=== PATIENT | male | born 1945 | race Caucasian/White ===

== ENCOUNTER 2018-01-23 06:52 | Day surgery (SDC) | payer MEDICARE, OTHER ==
[2018-01-22 12:07] VITALS: BMI 32.1
[2018-01-23] MEDS ORDERED: Lidocaine 1% (PF) 30 ML VIAL ONE (10:28)
[2018-01-23] MEDS ORDERED: Verapamil 5 MG/2 ML VIAL ONE (10:59)
[2018-01-23] MEDS ORDERED: Heparin 10,000 UNITS/1 ML VIAL ONE (10:59)
[2018-01-23] MEDS ORDERED: Nitroglycerin 100MG/250ML BOT 250 ML ONE (10:59)
[2018-01-23] MEDS ORDERED: Fentanyl 100 MCG/2 ML VIAL ONE (11:03)
[2018-01-23] MEDS ORDERED: Midazolam HCl 2 mg/2 ml Vial ONE (11:03)
[2018-01-23] MEDS ORDERED: Iopamidol 370 76% 50 ML VIAL FS ONE (15:11)
[2018-01-23] MEDS ORDERED: Iopamidol 370 76% 100 ML VIAL ONE (15:11)
--- NOTE | 2018-01-25 08:26 | EKG ---
Test Reason : PREOP Blood Pressure : / mmHG Vent. Rate : 052 BPM Atrial Rate : 052 BPM P-R Int : 228 ms QRS Dur : 118 ms QT Int : 480 ms P-R-T Axes : 055 004 044 degrees QTc Int : 446 ms Sinus bradycardia with 1st degree A-V block Non-specific intra-ventricular conduction delay Borderline ECG No previous ECGs available Confirmed by QUINTON GALVEZ ([id number]) on 01/25/2018 8:26:24 AM Referred By: AMERICA Confirmed By:QUINTON GALVEZ
== END 2018-01-23 15:00 | disposition home or self-care (01) ==
LOC: CCL 06:52
PROVIDERS: ATTEND Internal Medicine Cardiovascular Disease
PROC: 4A023N7 Measurement of Cardiac Sampling and Pressure, Left Heart, Percutaneous Approach (ICD-10-PCS; principal; 2018-01-23)
PROC: B2111ZZ Fluoroscopy of Multiple Coronary Arteries using Low Osmolar Contrast (ICD-10-PCS; 2018-01-23)
DX: I25.10 Atherosclerotic heart disease of native coronary artery without angina pectoris (principal); E11.9 Type 2 diabetes mellitus without complications; I10 Essential (primary) hypertension; E78.00 Pure hypercholesterolemia, unspecified; K21.9 Gastro-esophageal reflux disease without esophagitis; Z87.891 Personal history of nicotine dependence; Z79.82 Long term (current) use of aspirin; Z79.84 Long term (current) use of oral hypoglycemic drugs; Z79.899 Other long term (current) drug therapy; Z88.0 Allergy status to penicillin; Z91.041 Radiographic dye allergy status
CPT/HCPCS: 93005; 93458; C1769; 93010; 99152; J1644; J2001; J2250; J3010

== ENCOUNTER 2018-03-24 13:15 | Inpatient (IN) | payer MEDICARE, OTHER ==
[2018-04-24 12:55] VITALS: BMI 32.1
--- NOTE | 2018-05-01 12:34 | HP ---
HISTORY OF PRESENT ILLNESS: The patient is a 72-year-old male with a long history of progressive degenerative arthritis of the left knee, unresponsive to conservative treatment including restriction of activities, anti-inflammatory medications, and previous cortisone and Synvisc injections. The pain is now interfering with day-to-day activities including walking, getting dressed, and sleeping. It has become progressively worse over the past year. PAST HISTORY: The patient has had stents placed in his left leg for peripheral vascular disease by Dr. Goff approximately 2 years ago with good results without further problems, and Dr. Goff said there is no contraindication to surgery. He had a cardiac catheterization performed by Dr. Potts approximately 3 months ago which only revealed mild blockage. He does have a history of diabetes, hypertension, reflux, and high cholesterol. CURRENT MEDICATIONS: 1. Metoprolol. 2. Omeprazole. 3. Ibuprofen. 4. Amitriptyline. 5. Vitamin D. 6. Vitamin B. 7. Calcium. 8. Potassium. 9. Lisinopril. 10. Metformin. 11. Lipitor. 12. Aspirin 81 mg. 13. Flecainide. ALLERGIES: HE IS ALLERGIC TO PENICILLIN AND IV CONTRAST. FAMILY HISTORY: Otherwise unremarkable. SOCIAL HISTORY: Otherwise unremarkable. REVIEW OF SYSTEMS: Otherwise unremarkable. PHYSICAL EXAMINATION: GENERAL: A healthy heavyset male. HEENT: Unremarkable. NECK: Supple. CHEST: Clear. HEART: Regular rate and rhythm. ABDOMEN: Soft, nontender. RECTAL AND GENITAL: Deferred. EXTREMITIES: Pertinent findings to the left lower extremity and left knee, there is a trace effusion. There is no warmth or erythema. There is moderate varus. There is tenderness and crepitus over the medial joint line. Range of motion is 5-115 degrees. Distal pulses are trace to 1+. There is good capillary refill. There is left antalgic gait. NEUROVASCULAR: Intact. IMAGING STUDIES: X-rays of the left knee reveal [id number] collapse medially, and there is no posterior vascular stent in place. IMPRESSION: 1. Degenerative arthritis, left knee. 2. Peripheral vascular disease, status post stenting, left lower extremity. 3. Adult-onset diabetes. 4. History of hypertension. 5. Mild atherosclerotic cardiovascular disease. PLAN: Left total knee replacement without tourniquet. The nature of the surgery, length of recovery, and potential complications such as infection, loss of motion, incomplete relieve, delayed wound healing, neurovascular injury, thromboembolic phenomena, possible transfusion, and need for revision have been discussed in detail. Job ID: [id number]
[2018-05-05] MEDS ORDERED: Vancomycin HCl 1.5 GM in Sodium Chloride 0.9% 250 ML 300 ML IVPB SCH ×2 (06:15→20:00)
[2018-05-05] MEDS ORDERED: Fentanyl 100 MCG/2 ML VIAL ONE ×3 (06:30→10:35)
[2018-05-05] MEDS ORDERED: Midazolam HCl 2 mg/2 ml Vial ONE (06:30)
[2018-05-05] MEDS ORDERED: Tranexamic Acid 1,000 MG/10 ML VIAL ONE ×2 (06:38→09:54)
[2018-05-05] MEDS ORDERED: Levofloxacin 500 mg/D5W 100 ml Premix Bag ONE (06:38)
[2018-05-05] MEDS ORDERED: Sodium Chloride 0.9% 100 ML ONE (06:38)
[2018-05-05] MEDS ORDERED: Bupivacaine HCl 0.25%/Epi 0.0005/PF 10 ML VIAL FS ONE ×3 (06:47→07:02)
[2018-05-05] MEDS ORDERED: Fentanyl 100 MCG/2 ML VIAL IV PRN (07:35)
[2018-05-05] MEDS ORDERED: Ropivacaine HCl/PF 250 ML in Premix Bag 1 BAG NERVE BLCK SCH (07:35)
[2018-05-05] MEDS ORDERED: Ondansetron PF 4 MG/2 ML Vial IVP PRN ×2 (07:35→10:47)
[2018-05-05] MEDS ORDERED: Promethazine HCl 25 MG/ML VIAL IM PRN ×2 (07:35→09:59)
[2018-05-05] MEDS ORDERED: HYDROcodone/Acetaminophen 10/325 mg Tablet PO PRN ×3 (07:35→10:47)
[2018-05-05] MEDS ORDERED: Zolpidem Tartrate 5 MG TAB PO PRN ×2 (07:35→10:47)
[2018-05-05] MEDS ORDERED: traMADol HCl 50 MG TAB PO PRN ×3 (07:35→10:47)
[2018-05-05] MEDS ORDERED: Promethazine HCl 25 MG/ML VIAL SLOW IVP PRN ×2 (09:59→10:47)
[2018-05-05] MEDS ORDERED: Ondansetron HCl/PF 4 MG/2 ML Vial IVP PRN (09:59)
[2018-05-05] MEDS ORDERED: Tranexamic Acid 1,000 MG in Sodium Chloride 0.9% 100 ML IVPB SCH ×2 (10:15→10:47)
--- NOTE | 2018-05-05 10:28 | OP ---
DATE OF PROCEDURE: 05/05/2018 STUNNER ANIMAL: Panchito Chaney MD. ANESTHESIA: General plus adductor canal and sciatic nerve blocks. PREOPERATIVE DIAGNOSIS: Degenerative arthritis, left knee. POSTOPERATIVE DIAGNOSIS: Degenerative arthritis, left knee. PROCEDURES PERFORMED: Left total knee replacement with computer-assisted navigation with cemented Juliana triathlon components (#5 femoral component, #6 primary tibial base plate with 9 mm CS plastic insert, and A38 all plastic patellar component). DESCRIPTION OF PROCEDURE: After satisfactory anesthesia was induced in supine position, the patient was prepped and draped in routine manner. The tourniquet was not used. A gently curved medial parapatellar incision was made, carried down through the subcutaneous tissues and bleeding points were controlled with Bovie cautery. Medial parapatellar arthrotomy was performed. The patella was dislocated in layer and portion of fat pad were excised for exposure. There was marked degenerative arthritis of the knee especially medially with large areas of exposed bone. Meniscal remnants and osteophytes were removed. Using the appropriate guides and [employer] pinless navigation system, the distal femoral and proximal tibial articular surfaces were excised with oscillating saw to accept the trial components. It was felt that %5 femoral component and #6 tibial base plate with 9 mm CS plastic insert gave appropriate size, fit, stability, and correction of the preoperative deformity. The patellar articular surface was excised to accept an all plastic A38 patellar component. There were good patellar tracking and good range of motion. The trial components were removed. The knee was copiously irrigated with pulsatile lavage. The bony surface was thoroughly cleaned and dried as much as possible. The permanent components were then cemented in a single stage using one packet of cement premixed with 1 g of tobramycin powder. Excess cement was removed. There was again good fit and stability of the components. The knee was again copiously irrigated. The medial retinaculum and quadriceps mechanism were repaired with interrupted #2-0 Vicryl and running #2-0 Quill. Subcutaneous tissues were closed with a running 0-Quill suture, and the skin closed with a running subcuticular 3-0 Monoderm and SurgiSeal skin adhesive. A sterile bulky compressive dressing was applied and a sequential compression device was applied to the operative leg. A sequential compression device was applied to the nonoperative leg throughout the procedure. The patient was awakened, taken to recovery room in stable condition. There were no apparent intraoperative complications. The estimated blood loss was 300 mL. Tourniquet time was zero. Job ID: [id number]
[2018-05-05] MEDS ORDERED: Non-Formulary Item 1 EACH (Spironolact/Hydrochlorothiazid [Spironolactone-Hctz 25-25 Tab] PO SCH (10:47)
[2018-05-05] MEDS ORDERED: Acetaminophen 325 MG TAB PO PRN (10:47)
[2018-05-05] MEDS ORDERED: diphenhydrAMINE 25 MG CAP PO PRN (10:47)
[2018-05-05] MEDS ORDERED: Fentanyl 100 MCG/2 ML VIAL SLOW IVP PRN ×2 (10:47)
[2018-05-05] MEDS ORDERED: Torsemide 20 MG TAB PO SCH (11:30)
[2018-05-05] MEDS ORDERED: Potassium Chloride 20 MEQ TAB PO SCH (11:30)
[2018-05-05] MEDS ORDERED: metFORMIN 500 MG TAB PO SCH (11:30)
[2018-05-05] MEDS ORDERED: Flecainide 50 MG TAB PO SCH (11:30)
[2018-05-05] MEDS ORDERED: Aspirin 81 mg Enteric Coated Tablet PO SCH (11:30)
--- NOTE | 2018-05-05 12:17 | RAD ---
LEFT KNEE TWO VIEWS: Indication: History of left knee surgery. Comparison: None. FINDINGS: There is a left total prosthesis which projects in the expected position. There is an stent involving the distal left superficial femoral artery and proximal popliteal artery. There is intraarticular an d scattered periarticular soft tissue gas consistent with the patient's recent post-operative state. IMPRESSION: Left total knee arthroplasty without evidence of complication. POS: PENELOPE
[2018-05-05] MEDS: Ketorolac Tromethamine 30 MG/ML VIAL IVP PRN ×2 (13:06→20:49)
[2018-05-05] MEDS ORDERED: Ropivacaine 0.2% HCl/PF (40 MG/20 ML VIAL) ONE (13:25)
[2018-05-05] MEDS ORDERED: Ropivacaine 0.5% HCl/PF (150 MG/30 ML VIAL) ONE (13:25)
[2018-05-05] MEDS ORDERED: ePHEDrine/0.9% NaCl/PF SYRINGE 50 mg/10 ml ONE (13:30)
[2018-05-05] MEDS ORDERED: Dexamethasone 20 MG/5 ML VIAL ONE (13:30)
[2018-05-05] MEDS ORDERED: Ondansetron PF 4 MG/2 ML Vial ONE (13:30)
[2018-05-05] MEDS ORDERED: PHENYLEPHRINE-NS 100 MCG/ML 10 ML SYRINGE ONE (13:30)
[2018-05-05] MEDS ORDERED: PROPOFOL 200 MG/20 ML VIAL ONE (13:30)
[2018-05-05] MEDS ORDERED: Ketorolac Tromethamine 30 MG/ML VIAL IVP SCH (14:00)
[2018-05-05] MEDS: Sodium Chloride 0.9% 1,000 ML IV SCH ×2 (14:37→22:06)
--- NOTE | 2018-05-05 18:26 | PDOC.PN ---
- Subjective Encounter Start Date: 05/05/18 Encounter Start Time: 15:20 Pt seen for management of medical comorbidities, including DM2. Denies any complaints. - Objective MAR Reviewed: Yes Vital Signs & Weight: Vital Signs (12 hours) Temp Pulse Resp Pulse Ox 05/05/18 10:47 97.6 F 64 18 93 L Weight Weight 230 lb Additional Labs: Accuchecks 05/05/18 06:47 POC Glucose 100 Labs reviewed by me Phys Exam - Physical Examination Obese HEENT: moist MMs Neck: supple Respiratory: clear to auscultation bilateral Cardiovascular: RRR Gastrointestinal: soft s/p L knee surgery Neurological: moves all 4 limbs Psychiatric: normal affect Dx/Plan (1) DM2 (diabetes mellitus, type 2) Status: Chronic Comment: start accuchecks, insulin sliding scale (2) HTN (hypertension) Code(s): I10 - ESSENTIAL (PRIMARY) HYPERTENSION Status: Chronic Comment: monitor vital signs, titrate antihypertensives as needed Add PRN hydralazine for blood pressure spikes (3) GERD (gastroesophageal reflux disease) Code(s): K21.9 - GASTRO-ESOPHAGEAL REFLUX DISEASE WITHOUT ESOPHAGITIS Status: Chronic Comment: stable (4) Dyslipidemia Code(s): E78.5 - HYPERLIPIDEMIA, UNSPECIFIED Status: Chronic Comment: continue statin (5) Afib Code(s): I48.91 - UNSPECIFIED ATRIAL FIBRILLATION Status: Chronic Comment: pt now in sinus rhythm - Plan * . DVT prophylaxis and pain management per primary service. Review of Systems - Review of Systems Cardiovascular: negative: chest pain, palpitations, orthopnea, paroxysmal nocturnal dyspnea, edema, light headedness Gastrointestinal: negative: Nausea, Vomiting, Abdominal Pain, Diarrhea, Constipation, Melena, Hematochezia - Medications/Allergies Allergies/Adverse Reactions: Allergies Allergy/AdvReac Type Severity Reaction Status Date / Time Iodine and Iodide Containing Allergy Hives Verified 04/24/18 12:55 Produc Penicillins Allergy Hives Verified 04/24/18 12:55 Medications: Current Medications Acetaminophen (Tylenol) 650 mg PO Q4H PRN PRN Reason: Headache/Fever or Pain Hydrocodone Bitart/Acetaminophen ([place] 10/325) 1 tab PO Q4H PRN PRN Reason: Pain (1-3) Last Admin: 05/05/18 14:54 Dose: 1 tab Hydrocodone Bitart/Acetaminophen ([place] 10/325) 2 tab PO Q4H PRN PRN Reason: PAIN (4-6) Amitriptyline HCl (Elavil) 25 mg PO HS [facility] Aspirin (Ecotrin) 81 mg PO BID [facility] Atorvastatin Calcium (Lipitor) 40 mg PO HS [facility] Cholecalciferol (Vitamin D3) 1,000 units PO DAILY [facility] Diphenhydramine HCl (Benadryl) 25 mg PO Q6H PRN PRN Reason: Itching Fentanyl (Sublimaze) 50 mcg IV Q1H PRN PRN Reason: BREAKTHROUGH PAIN Ferrous Gluconate (Fergon) 324 mg PO BID-[facility] Flecainide Acetate (Tambocor) 100 mg PO BID [facility] Ropivacaine 250 ml/ Device 250 mls @ 0 mls/hr NERVE BLCK INF [facility] Levofloxacin 500 mg/ Device 100 mls @ 100 mls/hr IVPB 0600 [facility] Stop: 05/06/18 06:59 Sodium Chloride (Normal Saline 0.9%) 1,000 mls @ 100 mls/hr IV .Q10H [facility] Last Admin: 05/05/18 14:37 Dose: Not Given Vancomycin HCl 1.5 gm/ Sodium (Chloride) 300 mls @ 200 mls/hr IVPB 2000 [facility] Stop: 05/05/18 21:29 Iron/Minerals/Multivitamins (Theragran M) 1 tab PO DAILY [facility] Ketorolac Tromethamine (Toradol) 15 mg IVP Q6H PRN PRN Reason: Moderate Pain (4-6) Stop: 05/08/18 07:36 Last Admin: 05/05/18 13:06 Dose: 15 mg Metformin HCl (Glucophage) 1,000 mg PO QAM-[facility] Metoprolol Succinate (Toprol Xl) 25 mg PO DAILY [facility] Non-Formulary Medication (Spironolact/Hydrochlorothiazid [Spironolactone-Hctz 25 -25 Tab]) 1 tab PO ASDIR [facility] Ondansetron HCl (Zofran) 4 mg IVP Q6H PRN PRN Reason: Nausea/Vomiting Pantoprazole Sodium (Protonix) 40 mg PO DAILY [facility] Potassium Chloride (K-Dur) 20 meq PO QAM-[facility] Promethazine HCl (Phenergan) 12.5 mg IM Q4H PRN PRN Reason: Nausea Promethazine HCl (Phenergan) 12.5 mg SLOW IVP Q4H PRN PRN Reason: Nausea/Vomiting Senna/Docusate Sodium (Senokot S) 2 tab PO BID [facility] Sodium Chloride (Flush - Normal Saline) 10 ml IVF PRN PRN PRN Reason: Saline Flush Torsemide (Demadex) 20 mg PO DAILY [facility] Tramadol HCl (Ultram) 50 mg PO Q6H PRN PRN Reason: Mild Pain (1-3) Tramadol HCl (Ultram) 100 mg PO Q6H PRN PRN Reason: Moderate Pain 4-6 Zolpidem Tartrate (Ambien) 5 mg PO HSPRN PRN PRN Reason: Insomnia
[2018-05-05] MEDS ORDERED: Dextrose 5% in Water 1,000 ML IV PRN (18:27)
[2018-05-05] MEDS ORDERED: HumaLOG 300 UNITS/3 ML VIAL SC PRN (18:27)
[2018-05-05] MEDS ORDERED: Dextrose 50% Abboject 50 ML SYRINGE SLOW IVP PRN (18:27)
[2018-05-05] MEDS ORDERED: hydrALAZINE 20 MG/ML VIAL SLOW IVP PRN (18:30)
[2018-05-05] MEDS: Amitriptyline HCl 25 MG TAB PO SCH (20:46)
[2018-05-05] MEDS: Aspirin 81 mg Enteric Coated Tablet PO SCH (20:46)
[2018-05-05] MEDS: Atorvastatin Calcium 40 MG TAB PO SCH (20:47)
[2018-05-05] MEDS: Flecainide 50 MG TAB PO SCH (20:47)
[2018-05-05] MEDS: HYDROcodone/Acetaminophen 10/325 mg Tablet PO PRN (20:48)
[2018-05-06] MEDS: Ketorolac Tromethamine 30 MG/ML VIAL IVP PRN ×2 (03:40→14:55)
[2018-05-06] MEDS: HYDROcodone/Acetaminophen 10/325 mg Tablet PO PRN ×4 (03:42→20:07)
[2018-05-06 05:54] LABS: Hemoglobin 9.7 g/dL (14.0-18.0); Mean Corpuscular Hemoglobin 33.3 pg (27.0-31.0); Platelet Count 125 thou/uL (130-400); RBC Distribution Width 12.1 % (11.5-14.5); Red Blood Cell (RBC) Count 2.92 mill/uL (4.70-6.10); White Blood Cell (WBC) Count 7.9 thou/uL (4.8-10.8)
[2018-05-06] MEDS: Sodium Chloride 0.9% 1,000 ML IV SCH ×2 (06:25→12:40)
[2018-05-06] MEDS: Ferrous Gluconate 324 MG TAB PO SCH ×2 (08:17→18:10)
[2018-05-06] MEDS: metFORMIN 500 MG TAB PO SCH (08:17)
[2018-05-06] MEDS: Aspirin 81 mg Enteric Coated Tablet PO SCH ×2 (08:18→20:07)
[2018-05-06] MEDS: Flecainide 50 MG TAB PO SCH ×2 (08:19→20:07)
[2018-05-06] MEDS: Potassium Chloride 20 MEQ TAB PO SCH (08:20)
[2018-05-06] MEDS: Senokot S 8.6-50 MG TAB PO SCH ×2 (08:20→20:06)
[2018-05-06] MEDS: Multivitamin W/ Minerals 1 TAB PO SCH (08:20)
[2018-05-06] MEDS: Torsemide 20 MG TAB PO SCH (08:21)
--- NOTE | 2018-05-06 13:41 | PDOC.PN ---
- Subjective Encounter Start Date: 05/06/18 Encounter Start Time: 07:00 Pt seen for followup re: DM2. Feels well, no complaints. - Objective MAR Reviewed: Yes Vital Signs & Weight: Vital Signs (12 hours) Temp Pulse Resp BP Pulse Ox 05/06/18 13:23 98.2 F 76 18 123/70 92 L 05/06/18 07:17 98.5 F 76 18 120/64 92 L 05/06/18 04:00 98.6 F 68 16 110/67 94 L Weight Admit Weight 230 lb Weight 230 lb I&O: 05/05/18 05/06/18 05/07/18 06:59 06:59 06:59 Intake Total 1620 Output Total 850 Balance 770 Result Diagrams: 05/06/18 05:44 Additional Labs: Accuchecks 05/06/18 05/05/18 05:53 21:10 POC Glucose 109 136 H Labs reviewed by me Phys Exam - Physical Examination Constitutional: NAD HEENT: moist MMs Neck: supple Respiratory: clear to auscultation bilateral Cardiovascular: RRR Gastrointestinal: soft s/p L knee surgery Neurological: moves all 4 limbs Psychiatric: normal affect Dx/Plan (1) DM2 (diabetes mellitus, type 2) Status: Chronic Comment: reasonably controlled (2) HTN (hypertension) Code(s): I10 - ESSENTIAL (PRIMARY) HYPERTENSION Status: Chronic Comment: controlled (3) GERD (gastroesophageal reflux disease) Code(s): K21.9 - GASTRO-ESOPHAGEAL REFLUX DISEASE WITHOUT ESOPHAGITIS Status: Chronic Comment: stable (4) Dyslipidemia Code(s): E78.5 - HYPERLIPIDEMIA, UNSPECIFIED Status: Chronic Comment: on statin (5) Afib Code(s): I48.91 - UNSPECIFIED ATRIAL FIBRILLATION Status: Chronic Comment: in sinus rhythm - Plan * . Review of Systems - Review of Systems Cardiovascular: negative: chest pain, palpitations, orthopnea, paroxysmal nocturnal dyspnea, edema, light headedness Gastrointestinal: negative: Nausea, Vomiting, Abdominal Pain, Diarrhea, Constipation, Melena, Hematochezia - Medications/Allergies Allergies/Adverse Reactions: Allergies Allergy/AdvReac Type Severity Reaction Status Date / Time Iodine and Iodide Containing Allergy Hives Verified 04/24/18 12:55 Produc Penicillins Allergy Hives Verified 04/24/18 12:55 Medications: Current Medications Acetaminophen (Tylenol) 650 mg PO Q4H PRN PRN Reason: Headache/Fever or Pain Hydrocodone Bitart/Acetaminophen ([place] 10/325) 1 tab PO Q4H PRN PRN Reason: Pain (1-3) Last Admin: 05/05/18 14:54 Dose: 1 tab Hydrocodone Bitart/Acetaminophen ([place] 10/325) 2 tab PO Q4H PRN PRN Reason: PAIN (4-6) Last Admin: 05/06/18 12:40 Dose: 2 tab Amitriptyline HCl (Elavil) 25 mg PO HS [facility] Last Admin: 05/05/18 20:46 Dose: 25 mg Aspirin (Ecotrin) 81 mg PO BID [facility] Last Admin: 05/06/18 08:18 Dose: 81 mg Atorvastatin Calcium (Lipitor) 40 mg PO [facility] Last Admin: 05/05/18 20:47 Dose: 40 mg Cholecalciferol (Vitamin D3) 1,000 units PO DAILY [facility] Last Admin: 05/06/18 08:18 Dose: 1,000 units Dextrose/Water (Dextrose 50%) 25 gm SLOW IVP PRN PRN PRN Reason: Hypoglycemia Diphenhydramine HCl (Benadryl) 25 mg PO Q6H PRN PRN Reason: Itching Fentanyl (Sublimaze) 50 mcg IV Q1H PRN PRN Reason: BREAKTHROUGH PAIN Ferrous Gluconate (Fergon) 324 mg PO BID-[facility] Last Admin: 05/06/18 08:17 Dose: 324 mg Flecainide Acetate (Tambocor) 100 mg PO BID [facility] Last Admin: 05/06/18 08:19 Dose: 100 mg Glucagon (Glucagon) 1 mg IM PRN PRN PRN Reason: Hypoglycemia Hydralazine HCl (Apresoline) 10 mg SLOW IVP Q6H PRN PRN Reason: SBP Greater Than 170 Ropivacaine 250 ml/ Device 250 mls @ 0 mls/hr NERVE BLCK INF [facility] Last Admin: 05/06/18 11:25 Dose: 250 mls Sodium Chloride (Normal Saline 0.9%) 1,000 mls @ 100 mls/hr IV .Q10H [facility] Last Admin: 05/06/18 12:40 Dose: Not Given Dextrose/Water (D5w) 1,000 mls @ 0 mls/hr IV .Q0M PRN PRN Reason: Hypoglycemia Insulin Human Lispro (Humalog) 0 units SC .MILD SLIDING SCALE PRN PRN Reason: Mild Correctional Scale Iron/Minerals/Multivitamins (Theragran M) 1 tab PO DAILY [facility] Last Admin: 05/06/18 08:20 Dose: 1 tab Ketorolac Tromethamine (Toradol) 15 mg IVP Q6H PRN PRN Reason: Moderate Pain (4-6) Stop: 05/08/18 07:36 Last Admin: 05/06/18 03:40 Dose: 15 mg Metformin HCl (Glucophage) 1,000 mg PO [facility] Last Admin: 05/06/18 08:17 Dose: 1,000 mg Metoprolol Succinate (Toprol Xl) 25 mg PO DAILY [facility] Last Admin: 05/06/18 08:20 Dose: 25 mg Non-Formulary Medication (Spironolact/Hydrochlorothiazid [Spironolactone-Hctz 25 -25 Tab]) 1 tab PO [facility] Ondansetron HCl (Zofran) 4 mg IVP Q6H PRN PRN Reason: Nausea/Vomiting Pantoprazole Sodium (Protonix) 40 mg PO DAILY [facility] Last Admin: 05/06/18 08:19 Dose: 40 mg Potassium Chloride (K-Dur) 20 meq PO [facility] Last Admin: 05/06/18 08:20 Dose: 20 meq Promethazine HCl (Phenergan) 12.5 mg IM Q4H PRN PRN Reason: Nausea Promethazine HCl (Phenergan) 12.5 mg SLOW IVP Q4H PRN PRN Reason: Nausea/Vomiting Senna/Docusate Sodium (Senokot S) 2 tab PO BID [facility] Last Admin: 05/06/18 08:20 Dose: 2 tab Sodium Chloride (Flush - Normal Saline) 10 ml IVF PRN PRN PRN Reason: Saline Flush Torsemide (Demadex) 20 mg PO DAILY [facility] Last Admin: 05/06/18 08:21 Dose: 20 mg Tramadol HCl (Ultram) 50 mg PO Q6H PRN PRN Reason: Mild Pain (1-3) Tramadol HCl (Ultram) 100 mg PO Q6H PRN PRN Reason: Moderate Pain 4-6 Zolpidem Tartrate (Ambien) 5 mg PO HSPRN PRN PRN Reason: Insomnia
[2018-05-06] MEDS: Atorvastatin Calcium 40 MG TAB PO SCH (20:07)
[2018-05-06] MEDS: Amitriptyline HCl 25 MG TAB PO SCH (20:07)
[2018-05-07] MEDS: Ketorolac Tromethamine 30 MG/ML VIAL IVP PRN ×2 (00:20→13:09)
[2018-05-07] MEDS: HYDROcodone/Acetaminophen 10/325 mg Tablet PO PRN ×3 (03:54→13:02)
[2018-05-07] MEDS: Sodium Chloride 0.9% 1,000 ML IV SCH ×2 (03:58→10:10)
[2018-05-07 06:20] LABS: Hemoglobin 9.2 g/dL (14.0-18.0); Mean Corpuscular Hemoglobin 33.5 pg (27.0-31.0); Mean Platelet Volume 8.7 fL (7.4-10.4); Platelet Count 125 thou/uL (130-400); Red Blood Cell (RBC) Count 2.73 mill/uL (4.70-6.10); White Blood Cell (WBC) Count 8.8 thou/uL (4.8-10.8)
[2018-05-07] MEDS: Multivitamin W/ Minerals 1 TAB PO SCH (08:51)
[2018-05-07] MEDS: Senokot S 8.6-50 MG TAB PO SCH (08:51)
[2018-05-07] MEDS: metFORMIN 500 MG TAB PO SCH (08:52)
[2018-05-07] MEDS: Ferrous Gluconate 324 MG TAB PO SCH (08:52)
[2018-05-07] MEDS: Aspirin 81 mg Enteric Coated Tablet PO SCH (08:52)
[2018-05-07] MEDS: Flecainide 50 MG TAB PO SCH (08:53)
[2018-05-07] MEDS: Potassium Chloride 20 MEQ TAB PO SCH (08:53)
[2018-05-07] MEDS: Torsemide 20 MG TAB PO SCH (08:54)
[2018-05-07 11:47] VITALS: BP 121/72; TEMP 98.5
== END 2018-05-07 14:07 | disposition home or self-care (01) | DRG 470 ==
LOC: SURG A 05-05 05:49
PROVIDERS: ADMIT Orthopaedic Surgery; ATTEND Orthopaedic Surgery
PROC: 0SRD0J9 Replacement of Left Knee Joint with Synthetic Substitute, Cemented, Open Approach (ICD-10-PCS; principal; 2018-05-05)
DX: M17.12 Unilateral primary osteoarthritis, left knee (principal); E11.9 Type 2 diabetes mellitus without complications; I10 Essential (primary) hypertension; K21.9 Gastro-esophageal reflux disease without esophagitis; E78.5 Hyperlipidemia, unspecified; I48.91 Unspecified atrial fibrillation; I73.9 Peripheral vascular disease, unspecified; Z79.899 Other long term (current) drug therapy; Z79.1 Long term (current) use of non-steroidal anti-inflammatories (NSAID); Z79.82 Long term (current) use of aspirin; Z79.84 Long term (current) use of oral hypoglycemic drugs; Z88.0 Allergy status to penicillin; Z91.041 Radiographic dye allergy status; I25.10 Atherosclerotic heart disease of native coronary artery without angina pectoris
CPT/HCPCS: 36415; 36416; 85027; 86850; 86900; 86901; C1713; C1776; J1100; J1885; J1956; J2250; J2405; J2704; J2795; J3010; J3370; J7050; Q0163

== ENCOUNTER 2018-04-24 06:43 | Outpatient (CLI) | payer MEDICARE, OTHER ==
[2018-04-24 14:22] LABS: Bilirubin Negative (Negative); Blood, Urine Negative (Negative); Clarity CLEAR (Clear); Glucose, Urine (Dipstick) Negative (Negative); Leukocyte Trace (Negative); Nitrite Negative (Negative); Protein, Urine (Dipstick) Negative (Neg-Trace); Specific Gravity, Urine 1.027 (1.002-1.036); Urobilinogen 0.2 mg/dL (0.2-1.0)
[2018-04-24 14:24] LABS: Bacteria/HPF None Seen HPF (None Seen); Hyaline Casts/LPF 0-3 HYALINE CAST LPF (0-3 Hyaline); Pathc Cast-AUWi Flag 0.29 (0-2.49); WBC/HPF 0-3 HPF (0-3)
[2018-04-24 14:29] LABS: Renal Epithelial None Seen HPF (0-3); Transitional Epithelial NONE SEEN HPF (0-3)
[2018-04-24 14:51] LABS: Anion Gap 10 mmol/L (10-20); BUN (Urea Nitrogen) 15 mg/dL (8.4-25.7); Calc. Creatinine Clearance 0 mL/min (70-130); Calcium 9.5 mg/dL (7.8-10.44); Carbon Dioxide 27 mmol/L (23-31); Chloride 107 mmol/L (98-107); Estimated GFR-MDRD 69; Glucose 82 mg/dL (83-110); Potassium 4.3 mmol/L (3.5-5.1); Sodium 140 mmol/L (136-145)
[2018-04-24 15:10] LABS: Prothrombin Time 12.9 SEC (12.0-14.7)
[2018-04-24 15:16] LABS: Band 5 % (5-11); Eosinophils 1 % (0-10); Hemoglobin 12.7 g/dL (14.0-18.0); Lymphocytes 63 % (21-51); MDiff Complete? YES; Mean Corpuscular Hemoglobin 31.6 pg (27.0-31.0); Mean Corpuscular Volume 98.6 fL (78.0-98.0); Mean Platelet Volume 9.2 fL (7.4-10.4); Monocytes 3 % (0-10); Neutrophil 27 % (42-75); Platelet Count 138 thou/uL (130-400); Platelet Morphology Comment Appears Adequate; RBC Distribution Width 12.4 % (11.5-14.5); Reactive Lymphocytes 1 % (0-10); Red Blood Cell (RBC) Count 4.01 mill/uL (4.70-6.10); White Blood Cell (WBC) Count 4.7 thou/uL (4.8-10.8)
--- NOTE | 2018-04-25 21:05 | EKG ---
Test Reason : Blood Pressure : / mmHG Vent. Rate : 056 BPM Atrial Rate : 056 BPM P-R Int : 226 ms QRS Dur : 112 ms QT Int : 460 ms P-R-T Axes : 055 000 044 degrees QTc Int : 443 ms Sinus bradycardia with 1st degree A-V block Otherwise normal ECG When compared with ECG of 23-JAN-2018 08:13, No significant change was found Confirmed by Emma PAYTON ([id number]) on 04/25/2018 9:04:58 PM Referred By: SHASTA Confirmed By:Emma PAYTON
== END 2018-04-24 06:44 | disposition home or self-care (01) ==
LOC: LABBT 06:43
PROVIDERS: ATTEND Orthopaedic Surgery
DX: Z01.818 Encounter for other preprocedural examination (principal); M17.12 Unilateral primary osteoarthritis, left knee
CPT/HCPCS: 80048; 81001; 85025; 85610; 85730; 87081; 93005; 93010

== ENCOUNTER 2018-12-28 08:24 | Emergency (ER) | payer MEDICARE, OTHER ==
--- NOTE | 2018-12-28 08:53 | RAD ---
EXAM: XR Chest Pa Lat STANDARD PROVIDED CLINICAL HISTORY: Cough COMPARISON: 05/08/2012 FINDINGS: Cardiac silhouette remains enlarged. Vascular calcification is seen. No focal consolidation, pleural fluid or pneumothorax apparent. IMPRESSION: No evidence for an acute cardiopulmonary process.
[2018-12-28] MEDS ORDERED: Dexamethasone 10 MG/ML VIAL ONE (08:56)
== END 2018-12-28 09:06 | disposition home or self-care (01) ==
LOC: SCSER 08:24
DX: J06.9 Acute upper respiratory infection, unspecified (principal); I49.9 Cardiac arrhythmia, unspecified; I48.91 Unspecified atrial fibrillation; E11.9 Type 2 diabetes mellitus without complications; K21.9 Gastro-esophageal reflux disease without esophagitis; F17.210 Nicotine dependence, cigarettes, uncomplicated; Z79.899 Other long term (current) drug therapy; Z79.84 Long term (current) use of oral hypoglycemic drugs; Z85.51 Personal history of malignant neoplasm of bladder; Z79.82 Long term (current) use of aspirin
CPT/HCPCS: 71046; 96372; J1100

== ENCOUNTER 2019-03-11 12:17 | Outpatient (CLI) | payer MEDICARE, OTHER ==
[2019-03-11 14:11] LABS: Hemoglobin 12.9 g/dL (14.0-18.0); Mean Corpuscular HGB CONC 33.6 g/dL (32.0-36.0); Mean Corpuscular Hemoglobin 32.4 pg (27.0-31.0); Mean Corpuscular Volume 96.6 fL (78.0-98.0); Mean Platelet Volume 9.3 fL (7.4-10.4); Platelet Count 160 thou/uL (130-400); RBC Distribution Width 12.2 % (11.5-14.5); Red Blood Cell (RBC) Count 3.97 mill/uL (4.70-6.10); White Blood Cell (WBC) Count 4.3 thou/uL (4.8-10.8)
[2019-03-11 14:35] LABS: Anion Gap 12 mmol/L (10-20); BUN (Urea Nitrogen) 17 mg/dL (8.4-25.7); Calc. Creatinine Clearance 0 mL/min (70-130); Calcium 9.5 mg/dL (7.8-10.44); Carbon Dioxide 27 mmol/L (23-31); Chloride 106 mmol/L (98-107); Estimated GFR-MDRD 52; Glucose 102 mg/dL (83-110); Potassium 4.5 mmol/L (3.5-5.1); Sodium 140 mmol/L (136-145)
[2019-03-11 15:09] LABS: Bacteria/HPF None Seen HPF (None Seen); Bilirubin Negative (Negative); Blood, Urine Negative (Negative); Clarity Clear (Clear); Glucose, Urine (Dipstick) Normal (Negative); Leukocyte Negative Leu/uL (Negative); Nitrite Negative (Negative); Protein, Urine (Dipstick) Negative (Neg-Trace); RBC/HPF 0-3 HPF (0-3); Squamous Epithelial None Seen HPF (0-3); Urobilinogen Normal mg/dL (Less than 2); WBC/HPF 0-3 HPF (0-3)
--- NOTE | 2019-03-12 21:32 | EKG ---
Test Reason : Blood Pressure : / mmHG Vent. Rate : 070 BPM Atrial Rate : 070 BPM P-R Int : 206 ms QRS Dur : 106 ms QT Int : 434 ms P-R-T Axes : 018 061 010 degrees QTc Int : 468 ms Sinus rhythm with occasional Premature ventricular complexes Inferior infarct , age undetermined Abnormal ECG When compared with ECG of 24-APR-2018 13:31, Premature ventricular complexes are now Present Inferior infarct is now Present Confirmed by Emma PAYTON ([id number]) on 03/12/2019 9:32:12 PM Referred By: ELIER Confirmed By:Emma PAYTON
== END 2019-03-11 12:18 | disposition home or self-care (01) ==
LOC: LABBT 12:17
PROVIDERS: ATTEND Urology
DX: Z01.818 Encounter for other preprocedural examination (principal); D49.4 Neoplasm of unspecified behavior of bladder
CPT/HCPCS: 80048; 81001; 85027; 87086; 93005; 93010

== ENCOUNTER 2019-03-17 08:32 | Day surgery (SDC) | payer MEDICARE, OTHER ==
[2019-03-11 13:19] VITALS: BMI 32.1
[2019-03-17] MEDS ORDERED: Levofloxacin 500 mg/D5W 100 ml Premix Bag ONE (09:16)
[2019-03-17] MEDS ORDERED: Lidocaine 1% PF 5 ML VIAL ONE (09:44)
[2019-03-17] MEDS ORDERED: Ondansetron PF 4 MG/2 ML Vial ONE (09:44)
[2019-03-17] MEDS ORDERED: PROPOFOL 200 MG/20 ML VIAL ONE (09:44)
[2019-03-17] MEDS ORDERED: ePHEDrine/0.9% NaCl/PF SYRINGE 50 mg/10 ml ONE (09:44)
[2019-03-17] MEDS ORDERED: mitoMYcin 40 MG in Water For Injection,Sterile 20 ML I-VESIC SCH (09:45)
[2019-03-17] MEDS ORDERED: Iothalamate Meglumine 60% 50 ML VIAL FS ONE ×2 (11:20→12:03)
[2019-03-17] MEDS ORDERED: Fentanyl 100 MCG/2 ML VIAL ONE ×3 (11:21→12:59)
[2019-03-17] MEDS ORDERED: Oxybutynin 5 MG TAB ONE (12:51)
[2019-03-17] MEDS ORDERED: Ketorolac Tromethamine 30 MG/ML VIAL ONE (12:52)
[2019-03-17] MEDS ORDERED: Phenazopyridine HCl 97.5 MG TABLET ONE (12:52)
--- NOTE | 2019-03-17 13:55 | OP ---
DATE OF PROCEDURE: 03/17/2019 PREOPERATIVE DIAGNOSIS: Recurrent bladder tumors. POSTOPERATIVE DIAGNOSIS: Recurrent bladder tumors. PROCEDURES PERFORMED: Transurethral resection of medium bladder tumor, retrograde pyelograms. SPECIMEN: Left wall tumor, dome tumor, bladder neck tumor. ANESTHESIA: General. COMPLICATIONS: None. ESTIMATED BLOOD LOSS: Minimal. DESCRIPTION OF PROCEDURE: After informed consent, the patient was taken to the operating room, transferred to the table under his own power. Anesthesia was established and time-out was performed showing the correct patient, site, and procedure. Preoperative antibiotics were administered. He was prepped and draped in the lithotomy position. A digital rectal exam was performed showing a 35 g prostate without nodules or induration. The rigid resectoscope was advanced through the urethra noting a normal course and caliber down through the prostatic urethra noting coapting lateral lobes and a high bladder neck. The bladder was entered noting mild trabeculation. The bladder was systematically examined noting tumor along the bladder neck from just to the patient's right side of midline posteriorly up towards almost directly anterior along the left side of the bladder neck. He also has tumor involving the left trigone extending up to the left wall. Tumor did involve the ureteral orifice. He also has 3 solitary tumors at the dome of the bladder. A retrograde pyelogram was performed with a Pollack catheter showing good filling of both ureters without hydroureter, hydronephrosis, or filling defects. I then switched the resection loop and began with the tumor occupying the left wall and trigone. This was removed in its entirety. The tumor overlying the ureteral orifice was removed in a single swipe using cut current only. The resulting ureteral lumen was normal in appearance and effluxing nicely. After sending that specimen off, I then turned my attention to the tumors at the dome of the bladder, which were removed in succession. This was sent off as a separate specimen. Finally, I resected the bladder neck tumor beginning anteriorly and extending down the left wall and continuing across midline. This was sent as a 3rd specimen. Meticulous hemostasis was then achieved. The bladder was drained, re-examined, noting no active bleeding and no residual tumor. The scope was then withdrawn and an 18-Arabic Ortega catheter placed. 40 mg of mitomycin and 20 mL of fluid were instilled into the bladder and the catheter plugged. The case was then completed. The patient was awoke and transferred back to his hospital bed and taken to PACU back in stable condition, where he will have the mitomycin drained in 1 hour. Job ID: [id number]
[2019-03-17] MEDS ORDERED: HYDROcodone/Acetaminophen 5/325 mg Tablet ONE (15:15)
== END 2019-03-17 16:15 | disposition home or self-care (01) ==
LOC: SDC 08:32
PROVIDERS: ATTEND Urology
PROC: 0TBB8ZX Excision of Bladder, Via Natural or Artificial Opening Endoscopic, Diagnostic (ICD-10-PCS; principal; 2019-03-17)
DX: C67.1 Malignant neoplasm of dome of bladder (principal); C67.8 Malignant neoplasm of overlapping sites of bladder; N32.89 Other specified disorders of bladder; E11.9 Type 2 diabetes mellitus without complications; I10 Essential (primary) hypertension; E78.00 Pure hypercholesterolemia, unspecified; K21.9 Gastro-esophageal reflux disease without esophagitis; I48.0 Paroxysmal atrial fibrillation; Z79.82 Long term (current) use of aspirin; Z79.84 Long term (current) use of oral hypoglycemic drugs; Z79.899 Other long term (current) drug therapy; Z88.0 Allergy status to penicillin; Z91.041 Radiographic dye allergy status
CPT/HCPCS: 52235; 76000; 88307; C1758; J9280; J1885; J1956; J2001; J2405; J2704; J3010

== ENCOUNTER 2019-06-21 09:03 | Observation (INO) | payer MEDICARE, OTHER ==
[2019-06-21] MEDS ORDERED: Ibuprofen 800 MG TAB ONE (09:36)
--- NOTE | 2019-06-21 10:26 | RAD ---
Chest one view HISTORY: Cough. Chest pain. COMPARISON: 12/28/2018. FINDINGS: Cardiac silhouette is magnified and enlarged. Pulmonary vasculature. Mediastinum is midline with aortic calcification. Slight elevation of the left hemidiaphragm is unchanged. Chronic markings at the right posterior medi al lung base are stable. Subtle area of ill-defined opacity projects over the right mid chest. In the setting of cough, this i s worrisome for a developing infiltrate. No evidence of pneumothorax. IMPRESSION: Subtle right lower lobe parenchymal opacity, concerning for developing infiltrate in the setting of the patient's symptoms. Clinical correlation regarding other signs and symptoms of right lower lobe pneumonitis is required. Please consider correlation with upright PA and lateral views of the chest when patient can undergo t hat exam. Atherosclerosis. Cardiomegaly.
[2019-06-21 10:50] LABS: Hemoglobin 12.7 g/dL (14.0-18.0); Mean Corpuscular HGB CONC 33.1 g/dL (32.0-36.0); Mean Corpuscular Hemoglobin 32.8 pg (27.0-31.0); Mean Corpuscular Volume 99.2 fL (78.0-98.0); RBC Distribution Width 12.8 % (11.5-14.5); Red Blood Cell (RBC) Count 3.87 mill/uL (4.70-6.10); White Blood Cell (WBC) Count 5.1 thou/uL (4.8-10.8)
[2019-06-21 10:57] LABS: ALT (SGPT) 21 U/L (8-55); AST (SGOT) 25 U/L (5-34); Albumin 4.3 g/dL (3.4-4.8); Alkaline Phosphatase 53 U/L (40-110); Anion Gap 14 mmol/L (10-20); BUN (Urea Nitrogen) 12 mg/dL (8.4-25.7); Bilirubin, Total 0.4 mg/dL (0.2-1.2); CK (CPK) 212 U/L (30-200); Calc. Creatinine Clearance 0 mL/min (70-130); Calcium 9.1 mg/dL (7.8-10.44); Carbon Dioxide 26 mmol/L (23-31); Chloride 105 mmol/L (98-107); Estimated GFR-MDRD 72; Globulin 2.5 g/dL (2.4-3.5); Glucose 104 mg/dL (83-110); Lipase 31 U/L (8-78); Potassium 4.1 mmol/L (3.5-5.1); Protein, Total 6.8 g/dL (5.8-8.1); Sodium 141 mmol/L (136-145)
--- NOTE | 2019-06-21 11:14 | RAD ---
Chest 2 views HISTORY: Pneumonia. Follow-up. COMPARISON: 06/21/2019. FINDINGS: Two-view exam shows the area of concern for infiltrate within the right lower lobe to NOT p ersist. Cardiac silhouette and pulmonary vasculature are unremarkable. Mediastinum is midline with aortic calcification. No evidence of pneumothorax or pleural fluid. IMPRESSION: NO persistent infiltrate within the right lower lobe. Chronic-type findings are stable.
[2019-06-21 11:19] LABS: Band 28 % (5-11); Eosinophils 2 % (0-10); Lymphocytes 13 % (21-51); MDiff Complete? YES; Mean Platelet Volume 9.4 fL (7.4-10.4); Metamyelocyte 4 % (0-0); Monocytes 14 % (0-10); Myelocyte 2 % (0-0); Neutrophil 33 % (42-75); Platelet Count 114 thou/uL (130-400); Platelet Morphology Comment Appears Adequate; Reactive Lymphocytes 4 % (0-10)
[2019-06-21] MEDS ORDERED: methylPREDNISolone Sod Succ/PF 125 MG/2 ML VIAL ONE (11:26)
[2019-06-21] MEDS ORDERED: diphenhydrAMINE 50 MG/ML VIAL ONE (11:26)
[2019-06-21] MEDS ORDERED: Famotidine/PF 20 mg/2ml Vial ONE (11:26)
[2019-06-21] MEDS ORDERED: Ondansetron PF 4 MG/2 ML Vial ONE (12:00)
--- NOTE | 2019-06-21 12:51 | CT ---
CT arteriogram chest with IV contrast and 3-D imaging HISTORY: Chest pain. Cough. Fever. FINDINGS: There is good contrast opacification of the pulmonary arteries and thoracic aorta with norm al branching of the great vessels at the aortic arch. Calcification throughout the arterial structures including the coronary arteries. Lungs are slightly hyperinflated. Minimal widespread scarring. Mild widespread pleural thickening with occasional pleural plaque. No significant fibrotic lung disea se apparent. Heart size upper limits of normal. Minimal pericardial fluid. Nonspecific 2 mm subpleural nodule in t he right anterolateral lung base. Within the partially visualized upper abdomen, gallbladder surgically absent. Nonobstructing 2 mm gavin culus at the inferior pole of the right kidney. Retroaortic left renal vein evident. Prominent degenerative changes of the lumbar spine. IMPRESSION: No CT evidence of pulmonary embolus. Prominent atherosclerosis. Evidence of asbestos-related pleural disease. Tiny nonobstructing right renal calculus.
[2019-06-21] MEDS ORDERED: Oseltamivir 75 MG CAP PO SCH (13:45)
[2019-06-21] MEDS ORDERED: Iopamidol 370 76% 100 ML VIAL ONE (14:35)
[2019-06-21 15:50] VITALS: BMI 34.1
[2019-06-21] MEDS ORDERED: Acetaminophen 325 MG TAB PO PRN (16:26)
[2019-06-21] MEDS ORDERED: Ondansetron PF 4 MG/2 ML Vial IVP PRN (16:26)
[2019-06-21] MEDS ORDERED: Ondansetron ODT 4 MG TAB SL PRN (16:26)
[2019-06-21] MEDS: Sodium Chloride 0.9% 1,000 ML IV SCH (16:56)
[2019-06-21 19:17] LABS: Bacteria/HPF None Seen HPF (None Seen); Bilirubin Negative (Negative); Blood, Urine Negative (Negative); Clarity Clear (Clear); Glucose, Urine (Dipstick) Negative (Negative); Leukocyte Negative (Negative); Nitrite Negative (Negative); Protein, Urine (Dipstick) Negative (Neg-Trace); RBC/HPF 0-3 HPF (0-3); Squamous Epithelial 0-3 HPF (0-3); Urobilinogen 0.2 mg/dL (Less than 2); WBC/HPF 0-3 HPF (0-3)
[2019-06-21 19:18] LABS: Urine Culture Reflex No No
--- NOTE | 2019-06-21 19:33 | PDOC.HHP ---
Hospitalist HPI - History of Present Illness cough History of Present Illness: This is a 73 year old male with past medical history of atrial fibrillation, bladder cancer, GERD, hypertension who presented to the emergency room for cough. The patient states that his cough started on Saturday. He didn't think much of it. it got significantly worst and he was coughing so much that his chest was starting to hurt. He had a low grade temp of 100. He had mild shortness of breath, no runny nose or sore throat. He went to an urgent care and tested negative for the flu. He was given a steroid shot with no relief and was supposed to start taking doxycycline tomorrow but because he was feeling so bad he decided to come to the emergency room. The patient had mild muscle aches. No chest pain on exertion. ED Course: Upon arrival to the emergency room the patient had normal vitals. His labs were normal except for bandemia count elevated at 28. D-dimer was positive. The patient had an initial chest Xray that showed possible RLL pneumonia. F/u X ray was normal. CTA chest showed no PE, asbestos related pleural disease, no pneumonia. The patient was given IV levaquin, tamiflu, zofran, morphine, duoneb , pepcid, IV prednisone. He reports some improvement in his cough since being here. Hospitalist ROS - Review of Systems Constitutional: reports: fever. denies: chills Eyes: denies: vision change ENT: denies: ear pain, ear discharge Respiratory: reports: cough, shortness of breath. denies: dry Cardiovascular: reports: chest pain (only when he coughs). denies: palpitations , orthopnea Gastrointestinal: denies: nausea, vomiting, abdominal pain Genitourinary: denies: dysuria, frequency, incontinence Musculoskeletal: denies: neck pain, shoulder pain, arm pain Skin: denies: rash, lesions, migdalia, bruising Neurological: denies: weakness, numbness - Medication Medications: Active Medications Generic Name Dose Route Start Last Admin Trade Name Freq PRN Reason Stop Dose Admin Sodium Chloride 1,000 mls @ 100 mls/hr 06/21/19 16:26 06/21/19 16:56 Normal Saline 0.9% IV 06/22/19 01:40 Not Given .Q10H [facility] Hospitalist History - Past Medical History Other Medical History: Bladder cancer Atrial fibrillation Diabetes type II GERD - Past Surgical History Other Surgical History: Stent left leg Left knee surgery Appendectomy Tonsillectomy Bladder tumor rescrtion - Social History Smoking Status: Former smoker (smoked for 2 years) Alcohol: reports: Occassional - Exam General Appearance: NAD, awake alert Eye: PERRL, anicteric sclera ENT: normocephalic atraumatic, no oropharyngeal lesions Neck: supple, no JVD Heart: RRR, no murmur, no gallops, no rubs Respiratory: CTAB, no wheezes, no rales, no ronchi Gastrointestinal: soft, non-tender, non-distended, normal bowel sounds Extremities: no cyanosis, no clubbing, no edema Skin: normal turgor, no lesions, no rashes Neurological: cranial nerve grossly intact, normal sensation to touch, no new deficit Musculoskeletal: normal tone, normal strength, no muscle wasting Hospitalist Results - Labs Result Diagrams: 06/21/19 10:14 06/21/19 10:14 Lab results: WBC 5.1 thou/uL (4.8-10.8) 06/21/19 10:14 Hgb 12.7 g/dL (14.0-18.0) L 06/21/19 10:14 Hct 38.4 % (42.0-52.0) L 06/21/19 10:14 MCV 99.2 fL (78.0-98.0) H 06/21/19 10:14 Plt Count 114 thou/uL (130-400) L 06/21/19 10:14 Band Neuts % (Manual) 28 % (5-11) H 06/21/19 10:14 Sodium 141 mmol/L (136-145) 06/21/19 10:14 Potassium 4.1 mmol/L (3.5-5.1) 06/21/19 10:14 Chloride 105 mmol/L (98-107) 06/21/19 10:14 Carbon Dioxide 26 mmol/L (23-31) 06/21/19 10:14 BUN 12 mg/dL (8.4-25.7) 06/21/19 10:14 Creatinine 1.01 mg/dL (0.7-1.3) 06/21/19 10:14 Glucose 104 mg/dL (83-110) 06/21/19 10:14 Lactic Acid 1.1 mmol/L (0.5-2.2) 06/21/19 10:14 Calcium 9.1 mg/dL (7.8-10.44) 06/21/19 10:14 Total Bilirubin 0.4 mg/dL (0.2-1.2) 06/21/19 10:14 AST 25 U/L (5-34) 06/21/19 10:14 ALT 21 U/L (8-55) 06/21/19 10:14 Alkaline Phosphatase 53 U/L (40-110) 06/21/19 10:14 Creatine Kinase 212 U/L (30-200) H 06/21/19 10:14 Troponin I 0.012 ng/mL (< 0.028) 06/21/19 10:14 B-Natriuretic Peptide 71.9 pg/mL (0-100) 06/21/19 10:14 Serum Total Protein 6.8 g/dL (5.8-8.1) 06/21/19 10:14 Albumin 4.3 g/dL (3.4-4.8) 06/21/19 10:14 Lipase 31 U/L (8-78) 06/21/19 10:14 Urine Ketones Negative mg/dL (Negative) 06/21/19 18:45 Urine Blood Negative (Negative) 06/21/19 18:45 Urine Nitrite Negative (Negative) 06/21/19 18:45 Ur Leukocyte Esterase Negative (Negative) 06/21/19 18:45 Urine RBC 0-3 HPF (0-3) 06/21/19 18:45 Urine WBC 0-3 HPF (0-3) 06/21/19 18:45 Ur Squamous Epith Cells 0-3 HPF (0-3) 06/21/19 18:45 Urine Bacteria None Seen HPF (None Seen) 06/21/19 18:45 - EKG Interpretation EKG: no acute changes Hospitalist H&P A/P - Plan Plan: This is a 73 year old male with past medical history of atrial fibrillation, diabetes who presented to the ER with persistent cough, diagnosed with flu, admitted for bandemia #Influenza A #Bandemia - started on tamiflu , will continue. CT shows no indication for pneumonia - blood cultures are pending - patient has no urinary symptoms - s/p levaquin in the ER, will monitor off antibiotics - add tessalon pearls for cough - morphine prn #Afib #Diabetes -continue metoprolol and fleicanide - hold metformin - insulin sliding scale, fingersticks achs DVT prophylaxis: SCDS Code status: full code
[2019-06-21] MEDS ORDERED: Morphine 2 MG/ML SYRINGE SLOW IVP PRN (19:38)
[2019-06-21] MEDS ORDERED: Ibuprofen 600 MG TAB PO PRN (19:43)
[2019-06-21] MEDS ORDERED: Dextrose 5% in Water 1,000 ML IV PRN (19:46)
[2019-06-21] MEDS ORDERED: Dextrose 50% Abboject 50 ML SYRINGE SLOW IVP PRN (19:46)
[2019-06-21] MEDS ORDERED: HumaLOG 300 UNITS/3 ML VIAL SC PRN (19:46)
[2019-06-21] MEDS ORDERED: Benzonatate 100 MG CAP PO SCH (20:00)
[2019-06-21] MEDS: Heparin 5,000 UNITS/ML VIAL SC SCH (20:31)
[2019-06-21] MEDS: Flecainide 50 MG TAB PO SCH (20:31)
[2019-06-21] MEDS ORDERED: Amitriptyline HCl 25 MG TAB PO SCH (21:00)
[2019-06-21] MEDS ORDERED: Atorvastatin Calcium 40 MG TAB PO SCH (21:00)
[2019-06-21] MEDS: Oseltamivir 75 MG CAP PO SCH (22:45)
[2019-06-22] MEDS: Sodium Chloride 0.9% 1,000 ML IV SCH (00:55)
[2019-06-22 05:30] LABS: Anion Gap 11 mmol/L (10-20); BUN (Urea Nitrogen) 16 mg/dL (8.4-25.7); Calc. Creatinine Clearance 115 mL/min (70-130); Calcium 8.3 mg/dL (7.8-10.44); Carbon Dioxide 26 mmol/L (23-31); Chloride 107 mmol/L (98-107); Estimated GFR-MDRD 88; Glucose 136 mg/dL (83-110); Sodium 140 mmol/L (136-145)
[2019-06-22 05:52] LABS: Hemoglobin 11.2 g/dL (14.0-18.0); Mean Corpuscular HGB CONC 32.5 g/dL (32.0-36.0); Mean Corpuscular Hemoglobin 32.3 pg (27.0-31.0); Mean Corpuscular Volume 99.3 fL (78.0-98.0); Platelet Count 123 thou/uL (130-400); RBC Distribution Width 12.8 % (11.5-14.5); Red Blood Cell (RBC) Count 3.46 mill/uL (4.70-6.10); White Blood Cell (WBC) Count 4.3 thou/uL (4.8-10.8)
[2019-06-22 05:53] LABS: Band 10 % (5-11); Lymphocytes 18 % (21-51); MDiff Complete? YES; Monocytes 23 % (0-10); Neutrophil 49 % (42-75)
[2019-06-22 07:56] VITALS: BP 147/75; TEMP 98.6
[2019-06-22] MEDS ORDERED: Benzonatate 100 MG CAP PO SCH (09:00)
[2019-06-22] MEDS ORDERED: Calcium Carbonate 500 MG TAB PO SCH (09:00)
[2019-06-22] MEDS ORDERED: Aspirin 81 mg Enteric Coated Tablet PO SCH (09:00)
[2019-06-22] MEDS ORDERED: Cyanocobalamin (Vitamin B-12) 1,000 MCG TAB PO SCH (09:00)
[2019-06-22] MEDS: Flecainide 50 MG TAB PO SCH (09:21)
[2019-06-22] MEDS: Heparin 5,000 UNITS/ML VIAL SC SCH (09:21)
[2019-06-22] MEDS: Oseltamivir 75 MG CAP PO SCH (09:21)
--- NOTE | 2019-06-23 14:06 | DIS ---
DATE OF ADMISSION: 06/21/2019 DATE OF DISCHARGE: 06/22/2019 DISCHARGE DIAGNOSES: Influenza A, bandemia, asbestosis, anemia, and elevated CK level. CONSULTATIONS: None. PROCEDURES: None. BRIEF HISTORY OF PRESENT ILLNESS: This is a 73-year-old male with a past medical history of bladder cancer, cardiac arrhythmia, atrial fibrillation, who had presented to the emergency room with a nonproductive cough as well as fever. The patient had gone to an urgent care and tested negative for the flu. He had a steroid shot and felt worse after the steroid shot. His malaise and fatigue got progressively worse, so he decided to come to the emergency room for further evaluation. Upon arrival to the emergency room, his labs were unremarkable except for an elevated bandemia of 28. D-dimer was positive. CTA of his chest showed no PE, but possibly asbestos-related pleural disease. Initial x-ray showed right lower lobe pneumonia; however, followup x-ray showed no evidence of pneumonia. The patient was given IV Levaquin, Tamiflu and IV prednisone, and admitted for further workup. HOSPITAL COURSE: Influenza A/bandemia: The patient was started on Tamiflu. Blood cultures were drawn, which were negative. The patient was started on Levaquin as well for possible bronchitis and due to his bandemia. The following day, the patient reported improvement in his cough and his shortness of breath and requested discharge home. The patient was discharged home with Fran Beckett p.r.n. for cough, Levaquin for 4 more days, and Tamiflu for a total of 5 days. His repeat CBC showed resolution of his bandemia. Anemia: The patient was noted to have a hemoglobin of 11.2. Vitamin B12 and folate were normal. The patient should have a repeat CBC as an outpatient and follow up with his PCP. Asbestosis: patient noted to have asbestosis on CTA of his chest. He should have this monitored and followed up with PCP. DISCHARGE PHYSICAL EXAMINATION: VITAL SIGNS: Temperature 98.6, heart rate 60, respiratory rate 20, O2 saturation 94% on room air, and blood pressure 147/75. GENERAL: The patient is alert, awake, and oriented x3. CVS: Regular rate and rhythm with no murmurs, rubs, or gallops. LUNGS: Slightly diminished breath sounds at the bases, no wheezing. No significant crackles. ABDOMEN: Positive bowel sounds, soft, nontender, nondistended. EXTREMITIES: No edema. PERTINENT LABORATORY DATA: CBC on 06/20: White count 5.1, hemoglobin 12.4. CBC on 06/21: White count 4.3, hemoglobin 11.2, and hematocrit 34.3. BMP on 06/21: Unremarkable. Vitamin B12: Greater than 2000. Folate: 17.30. LFTs: Normal. CK: 212. Troponin I: 0.012. UA on 06/20: Negative. D-dimer: 0.51. PERTINENT IMAGING: Chest x-ray on 06/20: Subtle right lower lobe parenchymal opacity concerning for developing infiltrate. Chest x-ray on 06/20; PA, lateral: No persistent infiltrate within the right lower lobe. CTA thorax on 06/20: No PE. Prominent atherosclerosis. There is evidence of asbestos-related pleural disease. DISCHARGE CONDITION: Stable. ACTIVITY: As tolerated. DIET: Heart healthy diet. DISCHARGE MEDICATIONS: New prescriptions: 1. Tessalon Perles 100 mg p.o. t.i.d. p.r.n. 2. Levaquin 750 mg p.o. daily. 3. Tamiflu 75 mg p.o. b.i.d. All other home medications were resumed. DISCHARGE INSTRUCTIONS: The patient is to follow up with his PCP in a week. Consideration of a repeat chest x-ray should be done if symptoms persist. The patient should have followup for possible asbestosis. He should have repeat CK level checked. Job ID: [id number] MTDD
--- NOTE | 2019-06-27 13:36 | EKG ---
Test Reason : Blood Pressure : / mmHG Vent. Rate : 064 BPM Atrial Rate : 064 BPM P-R Int : 188 ms QRS Dur : 108 ms QT Int : 436 ms P-R-T Axes : 027 018 034 degrees QTc Int : 449 ms Normal sinus rhythm Normal ECG Confirmed by MUNA SHEA, OLIVE ([id number]), metropolitan editor GILBERTO SAAVEDRA ([id number]) on 06/27/2019 1:35:50 PM Referred By: Confirmed By:OLIVE TORO MD
== END 2019-06-22 11:26 | disposition home or self-care (01) ==
LOC: ERS 09:03 → 2SW 13:42
PROVIDERS: ADMIT Internal Medicine; ATTEND Internal Medicine
DX: J10.1 Influenza due to other identified influenza virus with other respiratory manifestations (principal); D64.9 Anemia, unspecified; J61 Pneumoconiosis due to asbestos and other mineral fibers; I48.91 Unspecified atrial fibrillation; E11.9 Type 2 diabetes mellitus without complications; K21.9 Gastro-esophageal reflux disease without esophagitis; I10 Essential (primary) hypertension; N20.0 Calculus of kidney; I25.10 Atherosclerotic heart disease of native coronary artery without angina pectoris; I25.84 Coronary atherosclerosis due to calcified coronary lesion; I70.90 Unspecified atherosclerosis; Z87.891 Personal history of nicotine dependence; Z79.82 Long term (current) use of aspirin; Z79.84 Long term (current) use of oral hypoglycemic drugs; Z79.899 Other long term (current) drug therapy; Z88.0 Allergy status to penicillin; Z91.041 Radiographic dye allergy status
CPT/HCPCS: 71045; 71046; 71275; 80048; 80053; 81001; 82550; 82607; 82746; 82962 ×2; 83605; 83690; 83880; 84484; 85025 ×2; 85379; 87040; 87804 ×2; 93005; 94640; 96361 ×3; 96365; 96366; 96372 ×2; 96375 ×2; 99285; G0378 ×3; 36415; 36416; J1200; J1644; J1956; J2270; J2405; J2930; J7620; Q9967; S0028

== ENCOUNTER 2020-03-14 11:39 | Emergency (ER) | payer MEDICARE, OTHER ==
[2020-03-14] MEDS ORDERED: Ketorolac Tromethamine 30 MG/ML VIAL ONE (12:59)
[2020-03-14] MEDS ORDERED: Iopamidol-370 76% 500 ML 1 ML ONE (13:04)
[2020-03-14 13:24] LABS: Hemoglobin 12.6 g/dL (14.0-18.0); Mean Corpuscular HGB CONC 32.9 g/dL (32.0-36.0); Mean Corpuscular Hemoglobin 32.8 pg (27.0-31.0); Mean Corpuscular Volume 99.6 fL (78.0-98.0); Mean Platelet Volume 9.2 fL (7.4-10.4); Platelet Count 124 thou/uL (130-400); RBC Distribution Width 12.6 % (11.5-14.5); Red Blood Cell (RBC) Count 3.85 mill/uL (4.70-6.10); White Blood Cell (WBC) Count 4.5 thou/uL (4.8-10.8)
[2020-03-14 13:44] LABS: ALT (SGPT) 21 U/L (8-55); AST (SGOT) 22 U/L (5-34); Albumin 4.1 g/dL (3.4-4.8); Alkaline Phosphatase 45 U/L (40-110); Anion Gap 10 mmol/L (10-20); BUN (Urea Nitrogen) 14 mg/dL (8.4-25.7); Bilirubin, Total 0.6 mg/dL (0.2-1.2); Calc. Creatinine Clearance 0 mL/min (70-130); Calcium 9.2 mg/dL (7.8-10.44); Carbon Dioxide 29 mmol/L (23-31); Chloride 105 mmol/L (98-107); Globulin 2.4 g/dL (2.4-3.5); Glucose 98 mg/dL (83-110); Potassium 4.3 mmol/L (3.5-5.1); Protein, Total 6.5 g/dL (5.8-8.1); Sodium 140 mmol/L (136-145)
[2020-03-14 13:50] LABS: Bacteria/HPF None Seen HPF (None Seen); Clarity Clear (Clear); RBC/HPF 0-3 HPF (0-3); Squamous Epithelial None Seen HPF (0-3); WBC/HPF 0-3 HPF (0-3)
[2020-03-14 13:52] LABS: Leukocyte Unable to Interpret Leu/uL (Negative); Specific Gravity, Urine 1.012 (1.002-1.036); pH, Urine 5.9 (5.0-9.0)
[2020-03-14 13:53] LABS: Bilirubin Unable to Interpret (Negative); Blood, Urine Unable to Interpret (Negative); Glucose, Urine (Dipstick) Unable to Interpret mg/dL (Negative); Ketone, Urine Unable to Interpret mg/dL (Negative); Nitrite Unable to Interpret (Negative); Protein, Urine (Dipstick) Unable to Interpret mg/dL (Neg-Trace); Urobilinogen UNABLE TO INTERPRET mg/dL (Less than 2)
[2020-03-14 14:00] LABS: Band 5 % (5-11); Eosinophils 1 % (0-10); Lymphocytes 13 % (21-51); MDiff Complete? YES; Macrocytosis SLIGHT = 6-15 cells (100X) (0-5/hpf); Monocytes 14 % (0-10); Neutrophil 48 % (42-75); Platelet Morphology Comment Appears Decreased; Polychromasia SLIGHT = 2-3 cells (100X) (0-2/hpf); Reactive Lymphocytes 19 % (0-10)
[2020-03-14] MEDS ORDERED: diphenhydrAMINE 50 MG/ML VIAL ONE (14:00)
[2020-03-14] MEDS ORDERED: methylPREDNISolone Sod Succ/PF 125 MG/2 ML VIAL ONE (14:00)
[2020-03-14] MEDS ORDERED: Famotidine/PF 20 mg/2ml Vial ONE (14:00)
--- NOTE | 2020-03-14 16:21 | CT ---
CT ABDOMEN WITH CONTRAST CT PELVIS WITH CONTRAST: DATE: 03/14/2020 HISTORY: 74-year-old male with history of bladder cancer presents with low back pain COMPARISON: 03/08/2020 TECHNIQUE: IV injection of iodinated contrast media: administered. Oral contrast media:Not administered FINDINGS: 3.3 cm fusiform infrarenal abdominal aortic aneurysm. 2.2 cm saccular aneurysm proximal aspect right common iliac artery. 2 cm fusiform aneurysm distal portion of left common iliac artery. Atherosclerotic calcification of entire abdominal aorta and all iliac arteries. 2.2 cm left renal anterior midpole cyst. Otherwise bilateral nephrograms are symmetrical. No hydronephrosis. Multiple clips in gallbladder fossa. No major pathology identified involving liver, spleen, pancreas, right kidney, or adrenals. Appendix not identified. Large number of diverticula throughout the descending and sigmoid colon, without diverticulitis. No small bowel dilation, ascites, or pneumoperitoneum. No consolidation or pleural effusion at lung bases. Multilevel high-grade degenerative disc disease throughout lumbar spine and lower thoracic spine. Exa ggerated lordosis of lumbar spine. Multilevel high-grade facet DJD at lumbar spine. No significant interval change detected. Nonspecific diffuse mild mural thickening of urinary bladder.. IMPRESSION: 1) high-grade lumbar spondylosis and lower thoracic spondylosis. 2) fusiform infrarenal abdominal aortic aneurysm. 3) bilateral common iliac artery aneurysms. 4) status post cholecystectomy and possibly appendectomy 5) no acute findings within abdominal cavity or pelvic cavity.
== END 2020-03-14 16:53 | disposition home or self-care (01) ==
LOC: ERS 11:39
DX: M54.5 Low back pain (principal); I48.91 Unspecified atrial fibrillation; E11.9 Type 2 diabetes mellitus without complications; K21.9 Gastro-esophageal reflux disease without esophagitis; Z87.891 Personal history of nicotine dependence; Z79.84 Long term (current) use of oral hypoglycemic drugs; Z79.899 Other long term (current) drug therapy
CPT/HCPCS: 74177; 80053; 81003; 81015; 85025; 96374; 96375; J1200; J1885; J2930; Q9967; S0028

== ENCOUNTER 2020-06-07 12:53 | Outpatient (CLI) | payer MEDICARE, OTHER ==
[2020-06-07 14:53] LABS: Hemoglobin 12.5 g/dL (13.5-17.5); Mean Corpuscular HGB CONC 32.8 g/dL (32.0-36.0); Mean Corpuscular Hemoglobin 32.1 pg (27.0-33.0); Mean Corpuscular Volume 97.7 fl (81.2-95.1); Mean Platelet Volume 11.7 fl (7.4-10.4); Platelet Count 135 10x3/uL (150-450); RBC Distribution Width 13.3 % (11.5-14.5); White Blood Cell (WBC) Count 4.2 10x3/uL (3.5-10.5)
[2020-06-07 15:06] LABS: Anion Gap 11 mmol/L (10-20); BUN (Urea Nitrogen) 17 mg/dL (8.4-25.7); Calc. Creatinine Clearance 0 mL/min (70-130); Calcium 9.3 mg/dL (7.8-10.44); Carbon Dioxide 30 mmol/L (23-31); Chloride 104 mmol/L (98-107); Glucose 100 mg/dL (83-110); Potassium 4.6 mmol/L (3.5-5.1); Sodium 140 mmol/L (136-145)
[2020-06-07 15:59] LABS: Bilirubin Neg (Negative); Blood, Urine 10 (Negative); Clarity Clear (Clear); Glucose, Urine (Dipstick) Normal (Negative); Ketone, Urine Negative (Negative); Leukocyte Negative (Negative); Nitrite Negative (Negative); Protein, Urine (Dipstick) Negative (Neg-Trace); Urobilinogen Normal mg/dL (Less than 2)
[2020-06-07 16:28] LABS: Bacteria/HPF Rare-Few HPF (None Seen); RBC/HPF 0-3 HPF (0-3); Renal Epithelial 0-3 HPF (None Seen); Squamous Epithelial None Seen HPF (0-3); WBC/HPF 0-3 HPF (0-3)
[2020-06-08 03:09] LABS: SARS-CoV-2 PCR by NAA Not Detected (NotDetected)
== END 2020-06-07 12:54 | disposition home or self-care (01) ==
LOC: LABBT 12:53
PROVIDERS: ATTEND Urology
DX: Z01.818 Encounter for other preprocedural examination (principal); C67.8 Malignant neoplasm of overlapping sites of bladder; N40.1 Benign prostatic hyperplasia with lower urinary tract symptoms; R35.1 Nocturia; Z20.822 Contact with and (suspected) exposure to COVID-19
CPT/HCPCS: 80048; 81001; 85027; 87086; 93005; U0003; U0005; 87635; 93010

== ENCOUNTER 2020-06-10 05:58 | Day surgery (SDC) | payer MEDICARE, OTHER ==
[2020-06-09 08:41] VITALS: BMI 33.7
[2020-06-10] MEDS ORDERED: Iothalamate Meglumine 60% 50 ML VIAL FS ONE (06:40)
[2020-06-10] MEDS ORDERED: Fentanyl 100 MCG/2 ML VIAL ONE ×2 (07:07)
[2020-06-10] MEDS ORDERED: Levofloxacin 500 mg/D5W 100 ml Premix Bag ONE (07:17)
[2020-06-10] MEDS ORDERED: Oxybutynin 5 MG TAB ONE (08:19)
[2020-06-10] MEDS ORDERED: Phenazopyridine HCl 100 MG TAB ONE (08:19)
[2020-06-10] MEDS ORDERED: Ketorolac Tromethamine 30 MG/ML VIAL ONE (08:19)
[2020-06-10] MEDS ORDERED: Ondansetron PF 4 MG/2 ML Vial ONE (09:08)
[2020-06-10] MEDS ORDERED: Dexamethasone 20 MG/5 ML VIAL ONE (09:08)
[2020-06-10] MEDS ORDERED: ePHEDrine 50 MG/ML VIAL ONE (09:08)
[2020-06-10] MEDS ORDERED: Lidocaine 1% PF 5 ML VIAL ONE (09:08)
[2020-06-10] MEDS ORDERED: PROPOFOL 200 MG/20 ML VIAL ONE (09:08)
[2020-06-10] MEDS ORDERED: PHENYLEPHRINE-NS 100 MCG/ML 10 ML SYRINGE ONE (09:08)
[2020-06-10] MEDS ORDERED: Glycopyrrolate 0.2 MG/ML 5 ML SYRINGE ONE (09:08)
[2020-06-10] MEDS ORDERED: traMADol HCl 50 MG TAB ONE (11:43)
== END 2020-06-10 11:30 | disposition home or self-care (01) ==
LOC: SDC 05:58
PROVIDERS: ATTEND Urology
PROC: 0T5B8ZZ Destruction of Bladder, Via Natural or Artificial Opening Endoscopic (ICD-10-PCS; principal; 2020-06-10)
PROC: 0V507ZZ Destruction of Prostate, Via Natural or Artificial Opening (ICD-10-PCS; 2020-06-10)
DX: N40.1 Benign prostatic hyperplasia with lower urinary tract symptoms (principal); R35.1 Nocturia; C67.8 Malignant neoplasm of overlapping sites of bladder; N30.20 Other chronic cystitis without hematuria; E11.9 Type 2 diabetes mellitus without complications; I10 Essential (primary) hypertension; K21.9 Gastro-esophageal reflux disease without esophagitis; E78.00 Pure hypercholesterolemia, unspecified; I48.91 Unspecified atrial fibrillation; Z79.82 Long term (current) use of aspirin; Z79.84 Long term (current) use of oral hypoglycemic drugs; Z79.899 Other long term (current) drug therapy; Z88.0 Allergy status to penicillin; Z88.1 Allergy status to other antibiotic agents; Z88.2 Allergy status to sulfonamides; Z91.041 Radiographic dye allergy status
CPT/HCPCS: 74420; 88305; 88341; 88342; J1100; J1885; J1956; J2405; J2704; J3010; J3490

== ENCOUNTER 2020-06-13 02:52 | Inpatient (IN) | payer MEDICARE, OTHER ==
[2020-06-13] MEDS ORDERED: methylPREDNISolone Sod Succ/PF 125 MG/2 ML VIAL ONE (03:27)
[2020-06-13] MEDS ORDERED: diphenhydrAMINE 50 MG/ML VIAL ONE (03:27)
[2020-06-13] MEDS ORDERED: Famotidine/PF 20 mg/2ml Vial ONE (03:27)
[2020-06-13 03:37] LABS: Hemoglobin 12.5 g/dL (14.0-18.0); Mean Corpuscular HGB CONC 33.3 g/dL (32.0-36.0); Mean Corpuscular Hemoglobin 33.8 pg (27.0-31.0); Red Blood Cell (RBC) Count 3.71 mill/uL (4.70-6.10); White Blood Cell (WBC) Count 14.2 thou/uL (4.8-10.8)
[2020-06-13 03:52] LABS: Bacteria/HPF None Seen HPF (None Seen); Bilirubin 2+ (Negative); Blood, Urine 2+ (Negative); Calcium Oxalate Crystals Rare HPF (None Seen); Clarity Clear (Clear); Glucose, Urine (Dipstick) Normal (Negative); Ketone, Urine Negative (Negative); Leukocyte 25 Leu/uL (Negative); Nitrite 2+ (Negative); Protein, Urine (Dipstick) 100 mg/dL (Neg-Trace); RBC/HPF Greater than 50 HPF (0-3); Specific Gravity, Urine 1.024 (1.002-1.036); Squamous Epithelial None Seen HPF (0-3); Urobilinogen 6 mg/dL (Less than 2)
[2020-06-13 03:55] LABS: Band 9 % (5-11); Hypochromia SLIGHT = 6-15 cells (100X) (0-5/hpf); Lymphocytes 1 % (21-51); MDiff Complete? YES; Mean Platelet Volume 8.8 fL (7.4-10.4); Monocytes 27 % (0-10); Neutrophil 59 % (42-75); Platelet Count 105 thou/uL (130-400); Platelet Morphology Comment Appears Adequate; Reactive Lymphocytes 4 % (0-10)
[2020-06-13 03:58] LABS: ALT (SGPT) 36 U/L (8-55); AST (SGOT) 29 U/L (5-34); Albumin 4.1 g/dL (3.4-4.8); Alkaline Phosphatase 51 U/L (40-110); Anion Gap 15 mmol/L (10-20); BUN (Urea Nitrogen) 16 mg/dL (8.4-25.7); Bilirubin, Total 1.1 mg/dL (0.2-1.2); Calc. Creatinine Clearance 0 mL/min (70-130); Calcium 8.7 mg/dL (7.8-10.44); Carbon Dioxide 26 mmol/L (23-31); Chloride 100 mmol/L (98-107); Globulin 2.5 g/dL (2.4-3.5); Glucose 97 mg/dL (83-110); Protein, Total 6.6 g/dL (5.8-8.1); Sodium 137 mmol/L (136-145)
[2020-06-13] MEDS ORDERED: Vancomycin 1 GM/200 ML BAG ONE (04:05)
[2020-06-13] MEDS ORDERED: Aztreonam 1 GM in Sodium Chloride 0.9% 100 ML IVPB SCH (04:30)
[2020-06-13] MEDS ORDERED: Fentanyl 100 MCG/2 ML VIAL ONE (05:14)
[2020-06-13] MEDS ORDERED: Ondansetron PF 4 MG/2 ML Vial ONE (05:15)
[2020-06-13] MEDS ORDERED: Ondansetron ODT 4 MG TAB PO PRN (07:36)
[2020-06-13] MEDS ORDERED: Ondansetron PF 4 MG/2 ML Vial IVP PRN (07:36)
[2020-06-13 08:08] VITALS: BMI 34.9
[2020-06-13] MEDS: Sodium Chloride 0.9% 1,000 ML IV SCH ×2 (08:27→21:31)
[2020-06-13] MEDS ORDERED: Iopamidol 370 76% 100 ML VIAL ONE (10:58)
[2020-06-13] MEDS ORDERED: Bisacodyl 5 MG TAB PO PRN ×2 (11:50→11:53)
[2020-06-13] MEDS ORDERED: Dextrose 50% Abboject 50 ML SYRINGE SLOW IVP PRN (11:53)
[2020-06-13] MEDS ORDERED: Dextrose 5% in Water 1,000 ML IV PRN (11:53)
[2020-06-13] MEDS ORDERED: HumaLOG 300 UNITS/3 ML VIAL SC PRN ×2 (11:53)
[2020-06-13] MEDS ORDERED: Acetaminophen 325 MG TAB PO PRN (11:53)
[2020-06-13 12:59] LABS: SARS-CoV-2 PCR by NAA Not Detected (NotDetected)
[2020-06-13] MEDS: metroNIDAZOLE 500 MG in Premix Bag 1 BAG IVPB SCH ×2 (13:28→21:31)
[2020-06-13] MEDS: Atorvastatin Calcium 40 MG TAB PO SCH (20:29)
[2020-06-13] MEDS: Amitriptyline HCl 25 MG TAB PO SCH (20:29)
[2020-06-13] MEDS: Flecainide 50 MG TAB PO SCH (20:29)
[2020-06-14] MEDS: metroNIDAZOLE 500 MG in Premix Bag 1 BAG IVPB SCH ×3 (05:11→21:10)
[2020-06-14 06:41] LABS: Anion Gap 11 mmol/L (10-20); BUN (Urea Nitrogen) 17 mg/dL (8.4-25.7); Calc. Creatinine Clearance 103 mL/min (70-130); Carbon Dioxide 25 mmol/L (23-31); Chloride 107 mmol/L (98-107); Glucose 104 mg/dL (83-110); Potassium 4.1 mmol/L (3.5-5.1); Sodium 139 mmol/L (136-145)
[2020-06-14 06:50] LABS: Band 17 % (5-11); Hemoglobin 10.7 g/dL (14.0-18.0); Lymphocytes 11 % (21-51); MDiff Complete? YES; Mean Corpuscular HGB CONC 31.9 g/dL (32.0-36.0); Mean Corpuscular Hemoglobin 32.6 pg (27.0-31.0); Mean Platelet Volume 9.4 fL (7.4-10.4); Monocytes 21 % (0-10); Neutrophil 51 % (42-75); Platelet Count 99 thou/uL (130-400); Platelet Morphology Comment Appears Decreased; RBC Distribution Width 12.9 % (11.5-14.5); Red Blood Cell (RBC) Count 3.29 mill/uL (4.70-6.10); White Blood Cell (WBC) Count 11.9 thou/uL (4.8-10.8)
[2020-06-14] MEDS: Senokot S 8.6-50 MG TAB PO PRN ×2 (07:59→20:32)
[2020-06-14] MEDS: Aspirin 81 mg Enteric Coated Tablet PO SCH (08:01)
[2020-06-14] MEDS: Flecainide 50 MG TAB PO SCH ×2 (08:01→20:32)
[2020-06-14] MEDS: Sodium Chloride 0.9% 1,000 ML IV SCH (08:01)
[2020-06-14] MEDS ORDERED: Sodium Chloride 0.9% 1,000 ML IV SCH (09:36)
[2020-06-14] MEDS ORDERED: hydrALAZINE 20 MG/ML VIAL SLOW IVP PRN (11:42)
[2020-06-14] MEDS ORDERED: Polyethylene Glycol 3350 17 GM Packet PO SCH (18:00)
[2020-06-14] MEDS: Amitriptyline HCl 25 MG TAB PO SCH (20:32)
[2020-06-14] MEDS: Atorvastatin Calcium 40 MG TAB PO SCH (20:32)
[2020-06-15] MEDS: metroNIDAZOLE 500 MG in Premix Bag 1 BAG IVPB SCH ×3 (05:19→20:21)
[2020-06-15 06:17] LABS: Anion Gap 11 mmol/L (10-20); BUN (Urea Nitrogen) 14 mg/dL (8.4-25.7); Calc. Creatinine Clearance 98 mL/min (70-130); Calcium 8.4 mg/dL (7.8-10.44); Carbon Dioxide 25 mmol/L (23-31); Chloride 107 mmol/L (98-107); Glucose 110 mg/dL (83-110); Potassium 3.9 mmol/L (3.5-5.1); Sodium 139 mmol/L (136-145)
[2020-06-15 06:26] LABS: Band 5 % (5-11); Hemoglobin 11.6 g/dL (14.0-18.0); Hypochromia SLIGHT = 6-15 cells (100X) (0-5/hpf); Lymphocytes 11 % (21-51); MDiff Complete? YES; Mean Corpuscular HGB CONC 33.2 g/dL (32.0-36.0); Mean Corpuscular Hemoglobin 33.5 pg (27.0-31.0); Mean Platelet Volume 8.8 fL (7.4-10.4); Monocytes 28 % (0-10); Neutrophil 56 % (42-75); Platelet Count 111 thou/uL (130-400); Platelet Morphology Comment Appears Decreased; RBC Distribution Width 12.7 % (11.5-14.5); Red Blood Cell (RBC) Count 3.46 mill/uL (4.70-6.10); White Blood Cell (WBC) Count 8.6 thou/uL (4.8-10.8)
[2020-06-15] MEDS: Aspirin 81 mg Enteric Coated Tablet PO SCH (08:01)
[2020-06-15] MEDS: Flecainide 50 MG TAB PO SCH ×2 (08:01→20:22)
[2020-06-15] MEDS: Folic Acid 1 MG TAB PO SCH (08:01)
[2020-06-15] MEDS: Saccharomyces boulardii 250 MG CAP PO SCH (08:01)
[2020-06-15] MEDS: Cyanocobalamin (Vitamin B-12) 1,000 MCG TAB PO SCH (08:01)
[2020-06-15] MEDS: Polyethylene Glycol 3350 17 GM Packet PO SCH (08:02)
[2020-06-15] MEDS ORDERED: Magnesium Citrate 300 ML BOT PO SCH (08:30)
[2020-06-15] MEDS: Senokot S 8.6-50 MG TAB PO PRN (14:26)
[2020-06-15] MEDS: Amitriptyline HCl 25 MG TAB PO SCH (20:22)
[2020-06-15] MEDS: Atorvastatin Calcium 40 MG TAB PO SCH (20:22)
[2020-06-16] MEDS: metroNIDAZOLE 500 MG in Premix Bag 1 BAG IVPB SCH ×2 (06:13→14:06)
[2020-06-16 07:47] VITALS: TEMP 98.7
[2020-06-16] MEDS: Flecainide 50 MG TAB PO SCH (08:13)
[2020-06-16] MEDS: Aspirin 81 mg Enteric Coated Tablet PO SCH (08:14)
[2020-06-16] MEDS: Saccharomyces boulardii 250 MG CAP PO SCH (08:14)
[2020-06-16] MEDS: Folic Acid 1 MG TAB PO SCH (08:14)
[2020-06-16] MEDS: Cyanocobalamin (Vitamin B-12) 1,000 MCG TAB PO SCH (08:14)
[2020-06-16] MEDS: Polyethylene Glycol 3350 17 GM Packet PO SCH (08:15)
[2020-06-16 14:24] VITALS: BP 155/79
== END 2020-06-16 14:26 | disposition home or self-care (01) | DRG 872 ==
LOC: ERS 02:52 → SUATTDRO 02:52 → T4-B 05:11 → OBSVTOIN 06-14 14:15
PROVIDERS: ADMIT Internal Medicine; ATTEND Internal Medicine
DX: A41.9 Sepsis, unspecified organism (principal); N17.9 Acute kidney failure, unspecified; N39.0 Urinary tract infection, site not specified; K57.32 Diverticulitis of large intestine without perforation or abscess without bleeding; K21.9 Gastro-esophageal reflux disease without esophagitis; E11.9 Type 2 diabetes mellitus without complications; K59.00 Constipation, unspecified; R65.20 Severe sepsis without septic shock; I10 Essential (primary) hypertension; I48.0 Paroxysmal atrial fibrillation; Z20.822 Contact with and (suspected) exposure to COVID-19; D53.9 Nutritional anemia, unspecified; Z96.652 Presence of left artificial knee joint; Z90.49 Acquired absence of other specified parts of digestive tract; Z87.891 Personal history of nicotine dependence; Z91.041 Radiographic dye allergy status; Z85.51 Personal history of malignant neoplasm of bladder; Z98.890 Other specified postprocedural states; Z88.0 Allergy status to penicillin; Z79.899 Other long term (current) drug therapy; Z79.82 Long term (current) use of aspirin; Z79.84 Long term (current) use of oral hypoglycemic drugs
CPT/HCPCS: 36415; 36416; 51798; 74177; 80048; 80053; 81003; 81015; 83605; 85025; 87040; 87086; 87635; 93005; 94760; 96365; 96367; 96375; 96376; G0378; J0360; J0744; J1200; J2405; J2930; J3010; J3370; J3490; Q9967; S0028; U0003; U0005

== ENCOUNTER 2020-06-18 13:44 | Inpatient (IN) | payer MEDICARE, OTHER ==
[2020-06-18] MEDS ORDERED: Dexamethasone 4 mg/ml Vial SLOW IVP SCH (14:30)
[2020-06-18] MEDS ORDERED: Dextrose 5% in Water 1,000 ML IV PRN (14:41)
[2020-06-18] MEDS: Guaifenesin DM 100-10/5 ML UDCUP PO PRN ×2 (15:28→20:38)
[2020-06-18] MEDS: Benzonatate 100 MG CAP PO SCH ×2 (15:28→19:50)
[2020-06-18] MEDS: Acetaminophen 325 MG TAB PO PRN ×2 (16:43→20:38)
[2020-06-18] MEDS ORDERED: REMDESIVIR (EUA) 200 MG in Sodium Chloride 0.9% 250 ML 210 ML IV SCH (17:00)
[2020-06-18] MEDS: Atorvastatin Calcium 40 MG TAB PO SCH (19:50)
[2020-06-18] MEDS: Amitriptyline HCl 25 MG TAB PO SCH (19:50)
[2020-06-18] MEDS: Ezetimibe 10 MG TAB PO SCH (19:51)
[2020-06-18] MEDS: Flecainide 50 MG TAB PO SCH (19:51)
[2020-06-18] MEDS: Tamsulosin HCl 0.4 MG CAP PO SCH (19:52)
[2020-06-18] MEDS: Enoxaparin Sodium 40 MG/0.4 ML SYRINGE SC SCH (19:54)
[2020-06-18] MEDS: Insulin Glargine 15 UNITS in Pre-Filled Syringe 1 EACH SC SCH (21:00)
[2020-06-18 21:54] LABS: Lactic Acid 2.1 mmol/L (0.5-2.2)
[2020-06-18 22:00] LABS: ALT (SGPT) 25 U/L (8-55); AST (SGOT) 35 U/L (5-34); Albumin 3.5 g/dL (3.4-4.8); Alkaline Phosphatase 64 U/L (40-110); Anion Gap 15 mmol/L (10-20); BUN (Urea Nitrogen) 24 mg/dL (8.4-25.7); Bilirubin, Total 0.4 mg/dL (0.2-1.2); Calc. Creatinine Clearance 81 mL/min (70-130); Calcium 8.4 mg/dL (7.8-10.44); Carbon Dioxide 19 mmol/L (23-31); Chloride 104 mmol/L (98-107); Globulin 2.9 g/dL (2.4-3.5); Glucose 168 mg/dL (83-110); Potassium 4.6 mmol/L (3.5-5.1); Protein, Total 6.4 g/dL (5.8-8.1); Sodium 133 mmol/L (136-145)
[2020-06-18 22:05] LABS: Band 31 % (5-11); Hemoglobin 11.3 g/dL (14.0-18.0); Lymphocytes 5 % (21-51); MDiff Complete? YES; Mean Corpuscular HGB CONC 33.2 g/dL (32.0-36.0); Mean Corpuscular Hemoglobin 33.5 pg (27.0-31.0); Mean Platelet Volume 8.5 fL (7.4-10.4); Monocytes 8 % (0-10); Neutrophil 56 % (42-75); Platelet Count 139 thou/uL (130-400); RBC Distribution Width 12.6 % (11.5-14.5); Red Blood Cell (RBC) Count 3.39 mill/uL (4.70-6.10); White Blood Cell (WBC) Count 9.8 thou/uL (4.8-10.8)
[2020-06-19] MEDS: Guaifenesin DM 100-10/5 ML UDCUP PO PRN ×4 (00:38→21:41)
[2020-06-19 01:16] LABS: Bacteria/HPF 1+ HPF (None Seen); Bilirubin Negative (Negative); Blood, Urine Trace (Negative); Clarity Clear (Clear); Glucose, Urine (Dipstick) Normal (Negative); Ketone, Urine Negative (Negative); Leukocyte Negative Leu/uL (Negative); Nitrite Negative (Negative); Protein, Urine (Dipstick) 20 mg/dL (Neg-Trace); RBC/HPF 0-3 HPF (0-3); Squamous Epithelial None Seen HPF (0-3); Urobilinogen Normal mg/dL (Less than 2); WBC/HPF 0-3 HPF (0-3)
[2020-06-19 01:17] LABS: Urine Culture Reflex Yes Yes
[2020-06-19] MEDS: Ondansetron PF 4 MG/2 ML Vial IVP PRN (04:13)
[2020-06-19 05:49] LABS: ALT (SGPT) 26 U/L (8-55); AST (SGOT) 35 U/L (5-34); Albumin 3.5 g/dL (3.4-4.8); Alkaline Phosphatase 63 U/L (40-110); Anion Gap 16 mmol/L (10-20); BUN (Urea Nitrogen) 18 mg/dL (8.4-25.7); Bilirubin, Total 0.4 mg/dL (0.2-1.2); Calc. Creatinine Clearance 108 mL/min (70-130); Calcium 8.5 mg/dL (7.8-10.44); Carbon Dioxide 22 mmol/L (23-31); Chloride 105 mmol/L (98-107); Globulin 2.9 g/dL (2.4-3.5); Glucose 115 mg/dL (83-110); Potassium 4.6 mmol/L (3.5-5.1); Protein, Total 6.4 g/dL (5.8-8.1); Sodium 138 mmol/L (136-145)
[2020-06-19] MEDS: Acetaminophen 325 MG TAB PO PRN (05:57)
[2020-06-19] MEDS: Enoxaparin Sodium 40 MG/0.4 ML SYRINGE SC SCH ×2 (08:44→20:50)
[2020-06-19] MEDS: Ascorbic Acid 500 mg Chewable Tablet PO SCH (08:45)
[2020-06-19] MEDS: Zinc Sulfate 220 MG CAP PO SCH (08:45)
[2020-06-19] MEDS: Cholecalciferol (Vitamin D3) 400 UNITS TAB PO SCH (08:45)
[2020-06-19] MEDS: Flecainide 50 MG TAB PO SCH ×2 (08:45→20:49)
[2020-06-19] MEDS: Aspirin 81 mg Enteric Coated Tablet PO SCH (08:45)
[2020-06-19] MEDS: Benzonatate 100 MG CAP PO SCH ×3 (08:45→20:45)
[2020-06-19] MEDS: Cefepime 1 GM in Sodium Chloride 0.9% 100 ML IVPB SCH ×2 (08:45→20:49)
[2020-06-19] MEDS: Dexamethasone 4 mg/ml Vial SLOW IVP SCH (08:46)
[2020-06-19 13:32] LABS: Legionella Urinary Ag Negative (Negative); Strep pneumo Urine Ag NEGATIVE (NEGATIVE)
[2020-06-19] MEDS: REMDESIVIR (EUA) 100 MG in Sodium Chloride 0.9% 250 ML 230 ML IV SCH (16:50)
[2020-06-19] MEDS: Tamsulosin HCl 0.4 MG CAP PO SCH (20:47)
[2020-06-19] MEDS: Ezetimibe 10 MG TAB PO SCH (20:47)
[2020-06-19] MEDS: Atorvastatin Calcium 40 MG TAB PO SCH (20:48)
[2020-06-19] MEDS: Amitriptyline HCl 25 MG TAB PO SCH (20:49)
[2020-06-19] MEDS: Insulin Glargine 15 UNITS in Pre-Filled Syringe 1 EACH SC SCH (22:05)
[2020-06-20] MEDS: Ondansetron PF 4 MG/2 ML Vial IVP PRN ×3 (02:13→20:20)
[2020-06-20 05:15] LABS: Hemoglobin 11.7 g/dL (14.0-18.0); Mean Corpuscular HGB CONC 31.5 g/dL (32.0-36.0); Mean Corpuscular Hemoglobin 31.9 pg (27.0-31.0); Mean Platelet Volume 8.4 fL (7.4-10.4); Platelet Count 170 thou/uL (130-400); RBC Distribution Width 12.6 % (11.5-14.5); Red Blood Cell (RBC) Count 3.68 mill/uL (4.70-6.10); White Blood Cell (WBC) Count 10.5 thou/uL (4.8-10.8)
[2020-06-20 05:33] LABS: Anion Gap 16 mmol/L (10-20); BUN (Urea Nitrogen) 22 mg/dL (8.4-25.7); CRP (Inflammatory) 16.05 mg/dL (= or < 0.5); Calc. Creatinine Clearance 112 mL/min (70-130); Calcium 8.6 mg/dL (7.8-10.44); Carbon Dioxide 25 mmol/L (23-31); Chloride 104 mmol/L (98-107); Glucose 99 mg/dL (83-110); Magnesium 1.8 mg/dL (1.6-2.6); Potassium 4.6 mmol/L (3.5-5.1); Sodium 140 mmol/L (136-145)
[2020-06-20 06:18] LABS: Band 17 % (5-11); Lymphocytes 7 % (21-51); MDiff Complete? YES; Monocytes 21 % (0-10); Neutrophil 55 % (42-75)
[2020-06-20] MEDS: Enoxaparin Sodium 40 MG/0.4 ML SYRINGE SC SCH ×2 (07:34→20:18)
[2020-06-20] MEDS: Dexamethasone 4 mg/ml Vial SLOW IVP SCH (07:34)
[2020-06-20] MEDS: Cefepime 1 GM in Sodium Chloride 0.9% 100 ML IVPB SCH ×2 (07:34→20:18)
[2020-06-20] MEDS: Cholecalciferol (Vitamin D3) 400 UNITS TAB PO SCH (07:35)
[2020-06-20] MEDS: Aspirin 81 mg Enteric Coated Tablet PO SCH (07:35)
[2020-06-20] MEDS: Flecainide 50 MG TAB PO SCH ×2 (07:35→20:17)
[2020-06-20] MEDS: Zinc Sulfate 220 MG CAP PO SCH (07:35)
[2020-06-20] MEDS: Ascorbic Acid 500 mg Chewable Tablet PO SCH (07:35)
[2020-06-20] MEDS: Benzonatate 100 MG CAP PO SCH ×3 (07:36→20:15)
[2020-06-20] MEDS: Guaifenesin DM 100-10/5 ML UDCUP PO PRN (11:26)
[2020-06-20] MEDS: HYDROcodone/Acetaminophen 5/325 mg Tablet PO PRN ×2 (11:27→20:20)
[2020-06-20] MEDS ORDERED: methylPREDNISolone Sod Succ 40 MG VIAL IVP STA (14:05)
[2020-06-20] MEDS ORDERED: Ivermectin 3 MG TAB PO SCH (16:15)
[2020-06-20] MEDS: REMDESIVIR (EUA) 100 MG in Sodium Chloride 0.9% 250 ML 230 ML IV SCH (16:20)
[2020-06-20] MEDS ORDERED: METHYLPREDNISOLONE SOD SUCC IVPB SCH (16:30)
[2020-06-20] MEDS ORDERED: SODIUM CHLORIDE 0.9% IVPB SCH (16:30)
[2020-06-20] MEDS ORDERED: methylPREDNISolone Sod Succ/PF 125 MG/2 ML VIAL IVPB SCH (18:00)
[2020-06-20] MEDS: SODIUM CHLORIDE 0.45% IVPB SCH (18:07)
[2020-06-20] MEDS: METHYLPREDNISOLONE SOD SUCC IVPB SCH (18:07)
[2020-06-20] MEDS: Ezetimibe 10 MG TAB PO SCH (20:15)
[2020-06-20] MEDS: Cholecalciferol 1,000 UNITS (25 MCG) TAB PO SCH (20:15)
[2020-06-20] MEDS: Tamsulosin HCl 0.4 MG CAP PO SCH (20:16)
[2020-06-20] MEDS: Atorvastatin Calcium 40 MG TAB PO SCH (20:16)
[2020-06-20] MEDS: Amitriptyline HCl 25 MG TAB PO SCH (20:17)
[2020-06-20] MEDS: Insulin Glargine 15 UNITS in Pre-Filled Syringe 1 EACH SC SCH (23:32)
[2020-06-21 05:53] LABS: Anion Gap 15 mmol/L (10-20); BUN (Urea Nitrogen) 21 mg/dL (8.4-25.7); CRP (Inflammatory) 8.06 mg/dL (= or < 0.5); Calc. Creatinine Clearance 122 mL/min (70-130); Calcium 8.6 mg/dL (7.8-10.44); Carbon Dioxide 25 mmol/L (23-31); Chloride 102 mmol/L (98-107); Glucose 125 mg/dL (83-110); Potassium 4.7 mmol/L (3.5-5.1); Sodium 137 mmol/L (136-145)
[2020-06-21] MEDS ORDERED: Polyethylene Glycol 3350 17 GM Packet PO PRN (09:59)
[2020-06-21] MEDS: Cefepime 1 GM in Sodium Chloride 0.9% 100 ML IVPB SCH ×2 (10:41→20:50)
[2020-06-21] MEDS: Benzonatate 100 MG CAP PO SCH ×3 (10:41→20:48)
[2020-06-21] MEDS: Aspirin 81 mg Enteric Coated Tablet PO SCH (10:41)
[2020-06-21] MEDS: Ascorbic Acid 500 mg Chewable Tablet PO SCH (10:41)
[2020-06-21] MEDS: Enoxaparin Sodium 40 MG/0.4 ML SYRINGE SC SCH ×2 (10:42→20:50)
[2020-06-21] MEDS: Flecainide 50 MG TAB PO SCH ×2 (10:42→20:48)
[2020-06-21] MEDS: Zinc Sulfate 220 MG CAP PO SCH (10:42)
[2020-06-21] MEDS: Ondansetron PF 4 MG/2 ML Vial IVP PRN (10:43)
[2020-06-21] MEDS: Acetaminophen/Codeine 30-300mg Tablet PO PRN ×2 (11:17→20:51)
[2020-06-21] MEDS ORDERED: Ivermectin 3 MG TAB PO SCH (14:15)
[2020-06-21] MEDS: METHYLPREDNISOLONE SOD SUCC IVPB SCH (17:55)
[2020-06-21] MEDS: REMDESIVIR (EUA) 100 MG in Sodium Chloride 0.9% 250 ML 230 ML IV SCH (17:55)
[2020-06-21] MEDS: SODIUM CHLORIDE 0.45% IVPB SCH (17:55)
[2020-06-21] MEDS: Ezetimibe 10 MG TAB PO SCH (20:48)
[2020-06-21] MEDS: Cholecalciferol 1,000 UNITS (25 MCG) TAB PO SCH (20:48)
[2020-06-21] MEDS: Insulin Glargine 15 UNITS in Pre-Filled Syringe 1 EACH SC SCH (20:49)
[2020-06-21] MEDS: Atorvastatin Calcium 40 MG TAB PO SCH (20:56)
[2020-06-21] MEDS: Tamsulosin HCl 0.4 MG CAP PO SCH (20:56)
[2020-06-21] MEDS: Amitriptyline HCl 25 MG TAB PO SCH (20:56)
[2020-06-22 05:58] LABS: Anion Gap 15 mmol/L (10-20); BUN (Urea Nitrogen) 23 mg/dL (8.4-25.7); Calc. Creatinine Clearance 119 mL/min (70-130); Calcium 8.5 mg/dL (7.8-10.44); Carbon Dioxide 26 mmol/L (23-31); Chloride 102 mmol/L (98-107); Glucose 113 mg/dL (83-110); Potassium 4.6 mmol/L (3.5-5.1); Sodium 138 mmol/L (136-145)
[2020-06-22] MEDS ORDERED: Furosemide 100 MG/10 ML VIAL SLOW IVP SCH (08:15)
[2020-06-22] MEDS: Ascorbic Acid 500 mg Chewable Tablet PO SCH (08:40)
[2020-06-22] MEDS: Benzonatate 100 MG CAP PO SCH ×3 (08:41→20:36)
[2020-06-22] MEDS: Aspirin 81 mg Enteric Coated Tablet PO SCH (08:41)
[2020-06-22] MEDS: Flecainide 50 MG TAB PO SCH ×2 (08:41→20:35)
[2020-06-22] MEDS: Cefepime 1 GM in Sodium Chloride 0.9% 100 ML IVPB SCH ×2 (08:41→20:33)
[2020-06-22] MEDS: Enoxaparin Sodium 40 MG/0.4 ML SYRINGE SC SCH ×2 (08:41→20:37)
[2020-06-22] MEDS: Zinc Sulfate 220 MG CAP PO SCH (08:42)
[2020-06-22] MEDS: Acetaminophen 325 MG TAB PO PRN (08:48)
[2020-06-22] MEDS: Senokot S 8.6-50 MG TAB PO PRN (08:51)
[2020-06-22] MEDS: HumaLOG 300 UNITS/3 ML VIAL SC PRN (11:39)
[2020-06-22] MEDS: METHYLPREDNISOLONE SOD SUCC IVPB SCH (14:07)
[2020-06-22] MEDS: SODIUM CHLORIDE 0.45% IVPB SCH (14:07)
[2020-06-22] MEDS: REMDESIVIR (EUA) 100 MG in Sodium Chloride 0.9% 250 ML 230 ML IV SCH (16:49)
[2020-06-22] MEDS: Ezetimibe 10 MG TAB PO SCH (20:33)
[2020-06-22] MEDS: Cholecalciferol 1,000 UNITS (25 MCG) TAB PO SCH (20:34)
[2020-06-22] MEDS: Amitriptyline HCl 25 MG TAB PO SCH (20:36)
[2020-06-22] MEDS: Tamsulosin HCl 0.4 MG CAP PO SCH (20:37)
[2020-06-22] MEDS: Lantus 1000 UNITS/10 ML VIAL SC SCH (22:40)
[2020-06-23] MEDS: Lantus 1000 UNITS/10 ML VIAL SC SCH ×2 (00:58→21:00)
[2020-06-23] MEDS: Atorvastatin Calcium 40 MG TAB PO SCH ×2 (00:59→20:40)
[2020-06-23 05:37] LABS: Anion Gap 12 mmol/L (10-20); BUN (Urea Nitrogen) 29 mg/dL (8.4-25.7); CRP (Inflammatory) 2.37 mg/dL (= or < 0.5); Calc. Creatinine Clearance 115 mL/min (70-130); Calcium 8.5 mg/dL (7.8-10.44); Carbon Dioxide 31 mmol/L (23-31); Chloride 101 mmol/L (98-107); Glucose 114 mg/dL (83-110); Potassium 4.5 mmol/L (3.5-5.1); Sodium 139 mmol/L (136-145)
[2020-06-23] MEDS: Cefepime 1 GM in Sodium Chloride 0.9% 100 ML IVPB SCH ×2 (07:42→20:41)
[2020-06-23] MEDS: Benzonatate 100 MG CAP PO SCH ×3 (07:44→20:41)
[2020-06-23] MEDS: Aspirin 81 mg Enteric Coated Tablet PO SCH (07:44)
[2020-06-23] MEDS: Ascorbic Acid 500 mg Chewable Tablet PO SCH (07:44)
[2020-06-23] MEDS: Enoxaparin Sodium 40 MG/0.4 ML SYRINGE SC SCH ×2 (07:45→20:39)
[2020-06-23] MEDS: Flecainide 50 MG TAB PO SCH ×2 (07:45→20:42)
[2020-06-23] MEDS: Zinc Sulfate 220 MG CAP PO SCH (07:45)
[2020-06-23] MEDS: METHYLPREDNISOLONE SOD SUCC IVPB SCH (12:52)
[2020-06-23] MEDS: SODIUM CHLORIDE 0.45% IVPB SCH (12:52)
[2020-06-23] MEDS: Cholecalciferol 1,000 UNITS (25 MCG) TAB PO SCH (20:39)
[2020-06-23] MEDS: Amitriptyline HCl 25 MG TAB PO SCH (20:40)
[2020-06-23] MEDS: Tamsulosin HCl 0.4 MG CAP PO SCH (20:40)
[2020-06-23] MEDS: Ezetimibe 10 MG TAB PO SCH (20:42)
[2020-06-24 05:38] LABS: Anion Gap 9 mmol/L (10-20); BUN (Urea Nitrogen) 24 mg/dL (8.4-25.7); CRP (Inflammatory) 1.45 mg/dL (= or < 0.5); Calc. Creatinine Clearance 119 mL/min (70-130); Calcium 8.8 mg/dL (7.8-10.44); Carbon Dioxide 34 mmol/L (23-31); Chloride 101 mmol/L (98-107); Glucose 111 mg/dL (83-110); Potassium 4.9 mmol/L (3.5-5.1); Sodium 139 mmol/L (136-145)
[2020-06-24] MEDS: Acetaminophen/Codeine 30-300mg Tablet PO PRN (06:19)
[2020-06-24] MEDS: Cefepime 1 GM in Sodium Chloride 0.9% 100 ML IVPB SCH ×2 (09:03→23:17)
[2020-06-24] MEDS: Benzonatate 100 MG CAP PO SCH ×3 (09:05→22:42)
[2020-06-24] MEDS: Zinc Sulfate 220 MG CAP PO SCH (09:05)
[2020-06-24] MEDS: Flecainide 50 MG TAB PO SCH ×2 (09:05→22:43)
[2020-06-24] MEDS: Enoxaparin Sodium 40 MG/0.4 ML SYRINGE SC SCH ×2 (09:05→22:44)
[2020-06-24] MEDS: Aspirin 81 mg Enteric Coated Tablet PO SCH (09:06)
[2020-06-24] MEDS: Ascorbic Acid 500 mg Chewable Tablet PO SCH (09:06)
[2020-06-24] MEDS: HumaLOG 300 UNITS/3 ML VIAL SC PRN (10:40)
[2020-06-24] MEDS: Guaifenesin DM 100-10/5 ML UDCUP PO PRN (14:33)
[2020-06-24] MEDS: SODIUM CHLORIDE 0.45% IVPB SCH (14:33)
[2020-06-24] MEDS: METHYLPREDNISOLONE SOD SUCC IVPB SCH (14:33)
[2020-06-24] MEDS: Ezetimibe 10 MG TAB PO SCH (22:42)
[2020-06-24] MEDS: Acetaminophen 325 MG TAB PO PRN (22:42)
[2020-06-24] MEDS: Cholecalciferol 1,000 UNITS (25 MCG) TAB PO SCH (22:42)
[2020-06-24] MEDS: Atorvastatin Calcium 40 MG TAB PO SCH (22:43)
[2020-06-24] MEDS: Tamsulosin HCl 0.4 MG CAP PO SCH (22:43)
[2020-06-24] MEDS: Amitriptyline HCl 25 MG TAB PO SCH (22:43)
[2020-06-25] MEDS: Guaifenesin DM 100-10/5 ML UDCUP PO PRN (04:12)
[2020-06-25 05:41] LABS: Anion Gap 15 mmol/L (10-20); BUN (Urea Nitrogen) 24 mg/dL (8.4-25.7); Calc. Creatinine Clearance 124 mL/min (70-130); Calcium 8.6 mg/dL (7.8-10.44); Carbon Dioxide 23 mmol/L (23-31); Chloride 104 mmol/L (98-107); Glucose 124 mg/dL (83-110); Potassium 4.6 mmol/L (3.5-5.1); Sodium 137 mmol/L (136-145)
[2020-06-25] MEDS: Enoxaparin Sodium 40 MG/0.4 ML SYRINGE SC SCH ×2 (07:54→21:10)
[2020-06-25] MEDS: Lantus 1000 UNITS/10 ML VIAL SC SCH (07:54)
[2020-06-25] MEDS: Cefepime 1 GM in Sodium Chloride 0.9% 100 ML IVPB SCH ×2 (07:56→21:11)
[2020-06-25] MEDS: Ascorbic Acid 500 mg Chewable Tablet PO SCH (07:58)
[2020-06-25] MEDS: Flecainide 50 MG TAB PO SCH ×2 (08:02→21:10)
[2020-06-25] MEDS: Aspirin 81 mg Enteric Coated Tablet PO SCH (08:02)
[2020-06-25] MEDS: Benzonatate 100 MG CAP PO SCH ×3 (08:02→21:09)
[2020-06-25] MEDS: Zinc Sulfate 220 MG CAP PO SCH (08:02)
[2020-06-25] MEDS: SODIUM CHLORIDE 0.45% IVPB SCH (13:16)
[2020-06-25] MEDS: METHYLPREDNISOLONE SOD SUCC IVPB SCH (13:16)
[2020-06-25] MEDS: Cholecalciferol 1,000 UNITS (25 MCG) TAB PO SCH (21:09)
[2020-06-25] MEDS: Ezetimibe 10 MG TAB PO SCH (21:09)
[2020-06-25] MEDS: Amitriptyline HCl 25 MG TAB PO SCH (21:10)
[2020-06-25] MEDS: Atorvastatin Calcium 40 MG TAB PO SCH (21:10)
[2020-06-25] MEDS: Tamsulosin HCl 0.4 MG CAP PO SCH (21:10)
[2020-06-26 05:36] LABS: Anion Gap 13 mmol/L (10-20); BUN (Urea Nitrogen) 25 mg/dL (8.4-25.7); CRP (Inflammatory) 1.04 mg/dL (= or < 0.5); Calc. Creatinine Clearance 122 mL/min (70-130); Calcium 8.6 mg/dL (7.8-10.44); Carbon Dioxide 25 mmol/L (23-31); Chloride 104 mmol/L (98-107); Glucose 108 mg/dL (83-110); Potassium 4.6 mmol/L (3.5-5.1); Sodium 137 mmol/L (136-145)
[2020-06-26] MEDS: Lantus 1000 UNITS/10 ML VIAL SC SCH (08:16)
[2020-06-26] MEDS: Enoxaparin Sodium 40 MG/0.4 ML SYRINGE SC SCH ×2 (08:17→20:59)
[2020-06-26] MEDS: Cefepime 1 GM in Sodium Chloride 0.9% 100 ML IVPB SCH ×2 (08:18→21:00)
[2020-06-26] MEDS: Aspirin 81 mg Enteric Coated Tablet PO SCH (08:18)
[2020-06-26] MEDS: Benzonatate 100 MG CAP PO SCH ×3 (08:18→21:01)
[2020-06-26] MEDS: Ascorbic Acid 500 mg Chewable Tablet PO SCH (08:18)
[2020-06-26] MEDS: Zinc Sulfate 220 MG CAP PO SCH (08:18)
[2020-06-26] MEDS: Flecainide 50 MG TAB PO SCH ×2 (08:19→21:01)
[2020-06-26] MEDS: Ondansetron PF 4 MG/2 ML Vial IVP PRN (08:40)
[2020-06-26] MEDS: SODIUM CHLORIDE 0.45% IVPB SCH (10:53)
[2020-06-26] MEDS: METHYLPREDNISOLONE SOD SUCC IVPB SCH (10:53)
[2020-06-26] MEDS: Cholecalciferol 1,000 UNITS (25 MCG) TAB PO SCH (21:01)
[2020-06-26] MEDS: Ezetimibe 10 MG TAB PO SCH (21:01)
[2020-06-26] MEDS: Amitriptyline HCl 25 MG TAB PO SCH (21:01)
[2020-06-26] MEDS: Atorvastatin Calcium 40 MG TAB PO SCH (21:01)
[2020-06-26] MEDS: Tamsulosin HCl 0.4 MG CAP PO SCH (21:02)
[2020-06-26] MEDS: HYDROcodone/Acetaminophen 5/325 mg Tablet PO PRN (23:14)
[2020-06-27] MEDS: Guaifenesin DM 100-10/5 ML UDCUP PO PRN (04:02)
[2020-06-27 05:37] LABS: Anion Gap 15 mmol/L (10-20); BUN (Urea Nitrogen) 28 mg/dL (8.4-25.7); CRP (Inflammatory) 0.63 mg/dL (= or < 0.5); Calc. Creatinine Clearance 118 mL/min (70-130); Calcium 8.5 mg/dL (7.8-10.44); Carbon Dioxide 22 mmol/L (23-31); Chloride 105 mmol/L (98-107); Glucose 116 mg/dL (83-110); Potassium 4.7 mmol/L (3.5-5.1); Sodium 137 mmol/L (136-145)
[2020-06-27] MEDS: METHYLPREDNISOLONE SOD SUCC IVPB SCH (09:59)
[2020-06-27] MEDS: SODIUM CHLORIDE 0.45% IVPB SCH (09:59)
[2020-06-27] MEDS: Cefepime 1 GM in Sodium Chloride 0.9% 100 ML IVPB SCH ×2 (09:59→21:59)
[2020-06-27] MEDS: Zinc Sulfate 220 MG CAP PO SCH (10:00)
[2020-06-27] MEDS: Aspirin 81 mg Enteric Coated Tablet PO SCH (10:00)
[2020-06-27] MEDS: Benzonatate 100 MG CAP PO SCH ×3 (10:00→22:00)
[2020-06-27] MEDS: Ascorbic Acid 500 mg Chewable Tablet PO SCH (10:00)
[2020-06-27] MEDS: Flecainide 50 MG TAB PO SCH ×2 (10:01→22:01)
[2020-06-27] MEDS: Enoxaparin Sodium 40 MG/0.4 ML SYRINGE SC SCH ×2 (10:01→21:59)
[2020-06-27] MEDS: Lantus 1000 UNITS/10 ML VIAL SC SCH (10:02)
[2020-06-27] MEDS: HumaLOG 300 UNITS/3 ML VIAL SC PRN (17:06)
[2020-06-27] MEDS: Cholecalciferol 1,000 UNITS (25 MCG) TAB PO SCH (22:00)
[2020-06-27] MEDS: Tamsulosin HCl 0.4 MG CAP PO SCH (22:00)
[2020-06-27] MEDS: Ezetimibe 10 MG TAB PO SCH (22:00)
[2020-06-27] MEDS: Atorvastatin Calcium 40 MG TAB PO SCH (22:01)
[2020-06-27] MEDS: Amitriptyline HCl 25 MG TAB PO SCH (22:01)
[2020-06-28] MEDS: Guaifenesin DM 100-10/5 ML UDCUP PO PRN (00:39)
[2020-06-28] MEDS: Cefepime 1 GM in Sodium Chloride 0.9% 100 ML IVPB SCH ×2 (08:40→22:40)
[2020-06-28] MEDS: SODIUM CHLORIDE 0.45% IVPB SCH (08:40)
[2020-06-28] MEDS: METHYLPREDNISOLONE SOD SUCC IVPB SCH (08:40)
[2020-06-28] MEDS: Lantus 1000 UNITS/10 ML VIAL SC SCH (08:41)
[2020-06-28] MEDS: Aspirin 81 mg Enteric Coated Tablet PO SCH (08:42)
[2020-06-28] MEDS: Enoxaparin Sodium 40 MG/0.4 ML SYRINGE SC SCH ×2 (08:42→22:44)
[2020-06-28] MEDS: Benzonatate 100 MG CAP PO SCH ×3 (08:43→22:37)
[2020-06-28] MEDS: Flecainide 50 MG TAB PO SCH ×2 (08:43→22:39)
[2020-06-28] MEDS: Senokot S 8.6-50 MG TAB PO PRN (08:43)
[2020-06-28] MEDS: Zinc Sulfate 220 MG CAP PO SCH (08:43)
[2020-06-28] MEDS: Ascorbic Acid 500 mg Chewable Tablet PO SCH (08:43)
[2020-06-28] MEDS: Atorvastatin Calcium 40 MG TAB PO SCH (22:37)
[2020-06-28] MEDS: Amitriptyline HCl 25 MG TAB PO SCH (22:37)
[2020-06-28] MEDS: Cholecalciferol 1,000 UNITS (25 MCG) TAB PO SCH (22:38)
[2020-06-28] MEDS: Tamsulosin HCl 0.4 MG CAP PO SCH (22:39)
[2020-06-28] MEDS: Ezetimibe 10 MG TAB PO SCH (22:39)
[2020-06-28] MEDS: Acetaminophen 325 MG TAB PO PRN (23:01)
[2020-06-29] MEDS: Cefepime 1 GM in Sodium Chloride 0.9% 100 ML IVPB SCH ×2 (08:25→21:03)
[2020-06-29] MEDS: Enoxaparin Sodium 40 MG/0.4 ML SYRINGE SC SCH ×2 (08:25→21:03)
[2020-06-29] MEDS: Zinc Sulfate 220 MG CAP PO SCH (08:26)
[2020-06-29] MEDS: Aspirin 81 mg Enteric Coated Tablet PO SCH (08:26)
[2020-06-29] MEDS: Flecainide 50 MG TAB PO SCH ×2 (08:26→21:02)
[2020-06-29] MEDS: Benzonatate 100 MG CAP PO SCH ×3 (08:26→21:02)
[2020-06-29] MEDS: Ascorbic Acid 500 mg Chewable Tablet PO SCH (08:26)
[2020-06-29] MEDS: Lantus 1000 UNITS/10 ML VIAL SC SCH (08:28)
[2020-06-29] MEDS: methylPREDNISolone Sod Succ 40 MG VIAL IVP SCH ×3 (13:13→23:39)
[2020-06-29] MEDS: HumaLOG 300 UNITS/3 ML VIAL SC PRN (17:06)
[2020-06-29 19:47] LABS: Magnesium 1.7 mg/dL (1.6-2.6); Potassium 4.2 mmol/L (3.5-5.1)
[2020-06-29] MEDS: Tamsulosin HCl 0.4 MG CAP PO SCH (21:01)
[2020-06-29] MEDS: Ezetimibe 10 MG TAB PO SCH (21:01)
[2020-06-29] MEDS: Atorvastatin Calcium 40 MG TAB PO SCH (21:02)
[2020-06-29] MEDS: Cholecalciferol 1,000 UNITS (25 MCG) TAB PO SCH (21:02)
[2020-06-29] MEDS: Amitriptyline HCl 25 MG TAB PO SCH (21:02)
[2020-06-30] MEDS: methylPREDNISolone Sod Succ 40 MG VIAL IVP SCH ×4 (05:01→23:35)
[2020-06-30] MEDS: Acetaminophen 325 MG TAB PO PRN (05:01)
[2020-06-30] MEDS: Lantus 1000 UNITS/10 ML VIAL SC SCH (08:33)
[2020-06-30] MEDS: Ascorbic Acid 500 mg Chewable Tablet PO SCH (08:34)
[2020-06-30] MEDS: Zinc Sulfate 220 MG CAP PO SCH (08:34)
[2020-06-30] MEDS: Benzonatate 100 MG CAP PO SCH ×3 (08:35→20:43)
[2020-06-30] MEDS: Aspirin 81 mg Enteric Coated Tablet PO SCH (08:35)
[2020-06-30] MEDS: Cefepime 1 GM in Sodium Chloride 0.9% 100 ML IVPB SCH ×2 (08:35→20:42)
[2020-06-30] MEDS: Flecainide 50 MG TAB PO SCH ×2 (08:35→20:43)
[2020-06-30] MEDS: Enoxaparin Sodium 40 MG/0.4 ML SYRINGE SC SCH ×2 (08:37→20:45)
[2020-06-30] MEDS: Amitriptyline HCl 25 MG TAB PO SCH (20:43)
[2020-06-30] MEDS: Atorvastatin Calcium 40 MG TAB PO SCH (20:43)
[2020-06-30] MEDS: Ezetimibe 10 MG TAB PO SCH (20:44)
[2020-06-30] MEDS: Tamsulosin HCl 0.4 MG CAP PO SCH (20:44)
[2020-06-30] MEDS: Cholecalciferol 1,000 UNITS (25 MCG) TAB PO SCH (20:44)
[2020-06-30] MEDS: Guaifenesin DM 100-10/5 ML UDCUP PO PRN (23:35)
[2020-07-01] MEDS: methylPREDNISolone Sod Succ 40 MG VIAL IVP SCH ×4 (05:47→22:37)
[2020-07-01] MEDS: Lantus 1000 UNITS/10 ML VIAL SC SCH (07:58)
[2020-07-01] MEDS: Enoxaparin Sodium 40 MG/0.4 ML SYRINGE SC SCH ×2 (08:00→21:21)
[2020-07-01] MEDS: Aspirin 81 mg Enteric Coated Tablet PO SCH (08:00)
[2020-07-01] MEDS: Zinc Sulfate 220 MG CAP PO SCH (08:00)
[2020-07-01] MEDS: Flecainide 50 MG TAB PO SCH ×2 (08:00→21:22)
[2020-07-01] MEDS: Benzonatate 100 MG CAP PO SCH ×3 (08:01→21:22)
[2020-07-01] MEDS: Ascorbic Acid 500 mg Chewable Tablet PO SCH (08:01)
[2020-07-01] MEDS: Cefepime 1 GM in Sodium Chloride 0.9% 100 ML IVPB SCH ×2 (08:01→21:21)
[2020-07-01] MEDS: Acetaminophen 325 MG TAB PO PRN ×2 (18:01→22:37)
[2020-07-01] MEDS: Atorvastatin Calcium 40 MG TAB PO SCH (21:22)
[2020-07-01] MEDS: Tamsulosin HCl 0.4 MG CAP PO SCH (21:22)
[2020-07-01] MEDS: Ezetimibe 10 MG TAB PO SCH (21:22)
[2020-07-01] MEDS: Amitriptyline HCl 25 MG TAB PO SCH (21:22)
[2020-07-01] MEDS: Cholecalciferol 1,000 UNITS (25 MCG) TAB PO SCH (21:22)
[2020-07-01] MEDS: Guaifenesin DM 100-10/5 ML UDCUP PO PRN (22:42)
[2020-07-02] MEDS: methylPREDNISolone Sod Succ 40 MG VIAL IVP SCH ×4 (05:59→23:50)
[2020-07-02] MEDS: Guaifenesin DM 100-10/5 ML UDCUP PO PRN ×3 (05:59→23:50)
[2020-07-02] MEDS: Cefepime 1 GM in Sodium Chloride 0.9% 100 ML IVPB SCH ×2 (08:29→20:25)
[2020-07-02] MEDS ORDERED: Lantus 1000 UNITS/10 ML VIAL SC SCH (08:45)
[2020-07-02 10:21] LABS: #Basophils 0.1 thou/uL (0.0-0.2); #Lymphocytes 0.3 thou/uL (1.20-3.40); #Monocytes 2.3 thou/uL (0.11-0.59); #Neutrophils 13.2 thou/uL (1.40-6.50); %Basophils 0.4 % (0.0-1.0); %Eosinophils 0.2 % (0.0-10.0); %Monocytes 14.4 % (0.0-10.0); %Neutrophils 83.1 % (42.0-75.0); Hemoglobin 12.9 g/dL (14.0-18.0); Mean Corpuscular HGB CONC 32.9 g/dL (32.0-36.0); Mean Corpuscular Hemoglobin 32.9 pg (27.0-31.0); Mean Platelet Volume 9.2 fL (7.4-10.4); Platelet Count 202 thou/uL (130-400); RBC Distribution Width 12.6 % (11.5-14.5); Red Blood Cell (RBC) Count 3.91 mill/uL (4.70-6.10); White Blood Cell (WBC) Count 15.9 thou/uL (4.8-10.8)
[2020-07-02 10:38] LABS: ALT (SGPT) 57 U/L (8-55); AST (SGOT) 26 U/L (5-34); Albumin 2.9 g/dL (3.4-4.8); Alkaline Phosphatase 121 U/L (40-110); Anion Gap 13 mmol/L (10-20); BUN (Urea Nitrogen) 23 mg/dL (8.4-25.7); Bilirubin, Total 0.6 mg/dL (0.2-1.2); Calc. Creatinine Clearance 134 mL/min (70-130); Calcium 8.1 mg/dL (7.8-10.44); Carbon Dioxide 25 mmol/L (23-31); Chloride 105 mmol/L (98-107); Globulin 2.7 g/dL (2.4-3.5); Potassium 4.6 mmol/L (3.5-5.1); Protein, Total 5.6 g/dL (5.8-8.1); Sodium 138 mmol/L (136-145)
[2020-07-02 10:43] LABS: Glucose 93 mg/dL (83-110)
[2020-07-02] MEDS: Ascorbic Acid 500 mg Chewable Tablet PO SCH (11:36)
[2020-07-02] MEDS: Flecainide 50 MG TAB PO SCH ×2 (11:37→20:26)
[2020-07-02] MEDS: Enoxaparin Sodium 40 MG/0.4 ML SYRINGE SC SCH ×2 (11:37→20:25)
[2020-07-02] MEDS: Benzonatate 100 MG CAP PO SCH ×3 (11:37→20:26)
[2020-07-02] MEDS: Aspirin 81 mg Enteric Coated Tablet PO SCH (11:37)
[2020-07-02] MEDS: Acyclovir 200 mg Capsule PO SCH ×4 (11:38→23:50)
[2020-07-02] MEDS: Zinc Sulfate 220 MG CAP PO SCH (11:38)
[2020-07-02] MEDS: Atorvastatin Calcium 40 MG TAB PO SCH (20:26)
[2020-07-02] MEDS: Ezetimibe 10 MG TAB PO SCH (20:26)
[2020-07-02] MEDS: Amitriptyline HCl 25 MG TAB PO SCH (20:26)
[2020-07-02] MEDS: Cholecalciferol 1,000 UNITS (25 MCG) TAB PO SCH (20:26)
[2020-07-02] MEDS: Tamsulosin HCl 0.4 MG CAP PO SCH (20:26)
[2020-07-03 05:51] LABS: #Lymphocytes 0.4 thou/uL (1.20-3.40); #Neutrophils 12.3 thou/uL (1.40-6.50); %Lymphocytes 2.6 % (21.0-51.0); %Monocytes 13.8 % (0.0-10.0); %Neutrophils 83.5 % (42.0-75.0); Hemoglobin 12.4 g/dL (14.0-18.0); Mean Corpuscular HGB CONC 33.2 g/dL (32.0-36.0); Mean Corpuscular Hemoglobin 33.2 pg (27.0-31.0); Mean Corpuscular Volume 99.9 fL (78.0-98.0); Mean Platelet Volume 9.1 fL (7.4-10.4); Platelet Count 180 thou/uL (130-400); RBC Distribution Width 12.6 % (11.5-14.5); Red Blood Cell (RBC) Count 3.74 mill/uL (4.70-6.10); White Blood Cell (WBC) Count 14.7 thou/uL (4.8-10.8)
[2020-07-03] MEDS: methylPREDNISolone Sod Succ 40 MG VIAL IVP SCH ×3 (05:58→17:09)
[2020-07-03 07:01] LABS: ALT (SGPT) 51 U/L (8-55); AST (SGOT) 23 U/L (5-34); Albumin 2.8 g/dL (3.4-4.8); Alkaline Phosphatase 121 U/L (40-110); Anion Gap 13 mmol/L (10-20); BUN (Urea Nitrogen) 21 mg/dL (8.4-25.7); Bilirubin, Total 0.6 mg/dL (0.2-1.2); CRP (Inflammatory) 0.71 mg/dL (= or < 0.5); Calc. Creatinine Clearance 147 mL/min (70-130); Carbon Dioxide 26 mmol/L (23-31); Chloride 102 mmol/L (98-107); Globulin 2.7 g/dL (2.4-3.5); Glucose 96 mg/dL (83-110); Potassium 4.4 mmol/L (3.5-5.1); Protein, Total 5.5 g/dL (5.8-8.1); Sodium 137 mmol/L (136-145)
[2020-07-03] MEDS: Cefepime 1 GM in Sodium Chloride 0.9% 100 ML IVPB SCH (08:59)
[2020-07-03] MEDS: Enoxaparin Sodium 40 MG/0.4 ML SYRINGE SC SCH ×2 (09:00→21:12)
[2020-07-03] MEDS: Flecainide 50 MG TAB PO SCH ×2 (09:00→21:12)
[2020-07-03] MEDS: Ascorbic Acid 500 mg Chewable Tablet PO SCH (09:00)
[2020-07-03] MEDS: Aspirin 81 mg Enteric Coated Tablet PO SCH (09:00)
[2020-07-03] MEDS: Zinc Sulfate 220 MG CAP PO SCH (09:01)
[2020-07-03] MEDS: Acyclovir 200 mg Capsule PO SCH ×4 (09:01→21:13)
[2020-07-03] MEDS: Benzonatate 100 MG CAP PO SCH ×3 (09:01→21:13)
[2020-07-03] MEDS: Guaifenesin DM 100-10/5 ML UDCUP PO PRN (10:40)
[2020-07-03 20:00] LABS: Potassium 4.6 mmol/L (3.5-5.1)
[2020-07-03 20:06] LABS: Magnesium 1.9 mg/dL (1.6-2.6)
[2020-07-03] MEDS: Ezetimibe 10 MG TAB PO SCH (21:12)
[2020-07-03] MEDS: Atorvastatin Calcium 40 MG TAB PO SCH (21:12)
[2020-07-03] MEDS: Amitriptyline HCl 25 MG TAB PO SCH (21:13)
[2020-07-03] MEDS: Cholecalciferol 1,000 UNITS (25 MCG) TAB PO SCH (21:13)
[2020-07-03] MEDS: Tamsulosin HCl 0.4 MG CAP PO SCH (21:13)
[2020-07-03 22:48] LABS: Actual Bicarbonate (HCO3a) 25.7 mEq/L (22-28); Base Excess (BEa) 0.6 mEq/L (-2.0 to +3.0); CO2 Tension 42.7 mmHg (35.0-45.0); Calcium, Ionized (arterial) 1.14 mmol/L (1.12-1.30); Carboxyhemoglobin (COHb) 1.2 gm% (0.0-3.0); Hemoglobin (Hb) 13.7 g/dL (14.0-18.0); O2 Tension (PaO2), arterial 60.4 mmHg (> 70.0); Potassium - ABG Lab 4.51 mmol/L (3.70-5.30)
[2020-07-03 23:01] LABS: Puncture Site RRA
[2020-07-03 23:02] LABS: ALV-art Gradient 599.225 mmHg (0-20)
[2020-07-03 23:32] LABS: ALT (SGPT) 58 U/L (8-55); AST (SGOT) 25 U/L (5-34); Albumin 3.1 g/dL (3.4-4.8); Alkaline Phosphatase 140 U/L (40-110); Anion Gap 16 mmol/L (10-20); BUN (Urea Nitrogen) 25 mg/dL (8.4-25.7); Bilirubin, Total 0.7 mg/dL (0.2-1.2); Calc. Creatinine Clearance 124 mL/min (70-130); Calcium 8.3 mg/dL (7.8-10.44); Carbon Dioxide 25 mmol/L (23-31); Chloride 102 mmol/L (98-107); Globulin 3.1 g/dL (2.4-3.5); Glucose 170 mg/dL (83-110); Potassium 4.5 mmol/L (3.5-5.1); Protein, Total 6.2 g/dL (5.8-8.1); Sodium 138 mmol/L (136-145)
[2020-07-03 23:54] LABS: Hemoglobin 13.8 g/dL (14.0-18.0); Mean Corpuscular HGB CONC 33.1 g/dL (32.0-36.0); Mean Corpuscular Hemoglobin 33.4 pg (27.0-31.0); Mean Platelet Volume 9.5 fL (7.4-10.4); Platelet Count 191 thou/uL (130-400); RBC Distribution Width 12.7 % (11.5-14.5); Red Blood Cell (RBC) Count 4.14 mill/uL (4.70-6.10); White Blood Cell (WBC) Count 23.8 thou/uL (4.8-10.8)
[2020-07-03 23:55] LABS: Band 9 % (5-11); Lymphocytes 3 % (21-51); MDiff Complete? YES; Macrocytosis SLIGHT = 6-15 cells (100X) (0-5/hpf); Monocytes 13 % (0-10); Neutrophil 75 % (42-75)
[2020-07-04] MEDS ORDERED: Sterile Water 10 ML VIAL FS SCH (00:15)
[2020-07-04] MEDS ORDERED: OLANZapine 10 MG VIAL IM SCH (00:15)
[2020-07-04] MEDS: methylPREDNISolone Sod Succ 40 MG VIAL IVP SCH ×2 (00:36→05:37)
[2020-07-04] MEDS: Acyclovir 200 mg Capsule PO SCH ×5 (00:43→21:12)
[2020-07-04] MEDS: Guaifenesin DM 100-10/5 ML UDCUP PO PRN ×2 (03:45→21:12)
[2020-07-04] MEDS: Flecainide 50 MG TAB PO SCH ×2 (09:08→21:14)
[2020-07-04] MEDS: Benzonatate 100 MG CAP PO SCH ×3 (09:08→21:13)
[2020-07-04] MEDS: Ascorbic Acid 500 mg Chewable Tablet PO SCH (09:08)
[2020-07-04] MEDS: Aspirin 81 mg Enteric Coated Tablet PO SCH (09:09)
[2020-07-04] MEDS: Zinc Sulfate 220 MG CAP PO SCH (09:09)
[2020-07-04] MEDS: Enoxaparin Sodium 40 MG/0.4 ML SYRINGE SC SCH ×2 (09:09→21:12)
[2020-07-04] MEDS: methylPREDNISolone Sod Succ/PF 100 MG in Sodium Chloride 0.9% 250 ML 250 ML IVPB SCH (09:29)
[2020-07-04] MEDS: Cholecalciferol 1,000 UNITS (25 MCG) TAB PO SCH (21:13)
[2020-07-04] MEDS: Ezetimibe 10 MG TAB PO SCH (21:13)
[2020-07-04] MEDS: Tamsulosin HCl 0.4 MG CAP PO SCH (21:13)
[2020-07-04] MEDS: Amitriptyline HCl 25 MG TAB PO SCH (21:14)
[2020-07-04] MEDS: Atorvastatin Calcium 40 MG TAB PO SCH (21:14)
[2020-07-05] MEDS: Acyclovir 200 mg Capsule PO SCH ×5 (00:27→21:47)
[2020-07-05 07:11] LABS: Hemoglobin 12.1 g/dL (14.0-18.0); Mean Corpuscular HGB CONC 31.5 g/dL (32.0-36.0); Mean Corpuscular Hemoglobin 31.5 pg (27.0-31.0); Mean Platelet Volume 9.5 fL (7.4-10.4); Platelet Count 134 thou/uL (130-400); RBC Distribution Width 12.6 % (11.5-14.5); Red Blood Cell (RBC) Count 3.85 mill/uL (4.70-6.10); White Blood Cell (WBC) Count 9.4 thou/uL (4.8-10.8)
[2020-07-05 07:30] LABS: Anion Gap 13 mmol/L (10-20); BUN (Urea Nitrogen) 22 mg/dL (8.4-25.7); CRP (Inflammatory) 3.13 mg/dL (= or < 0.5); Calc. Creatinine Clearance 137 mL/min (70-130); Calcium 7.9 mg/dL (7.8-10.44); Carbon Dioxide 26 mmol/L (23-31); Chloride 103 mmol/L (98-107); Glucose 114 mg/dL (83-110); Potassium 4.6 mmol/L (3.5-5.1); Sodium 137 mmol/L (136-145)
[2020-07-05 07:51] LABS: MDiff Complete? YES
[2020-07-05 07:52] LABS: Band 6 % (5-11); Lymphocytes 9 % (21-51); Monocytes 11 % (0-10); Neutrophil 74 % (42-75); Platelet Morphology Comment Appears Adequate; Polychromasia SLIGHT = 2-3 cells (100X) (0-2/hpf)
[2020-07-05] MEDS ORDERED: Furosemide 40 MG/4 ML VIAL SLOW IVP SCH (09:30)
[2020-07-05] MEDS ORDERED: Enoxaparin Sodium 100 MG/ML SYRINGE SC SCH (09:45)
[2020-07-05] MEDS: Diltiazem 125 MG in Sodium Chloride 0.9% 100 ML IVPB SCH ×2 (10:14→19:52)
[2020-07-05] MEDS: Zinc Sulfate 220 MG CAP PO SCH (10:15)
[2020-07-05] MEDS: Ascorbic Acid 500 mg Chewable Tablet PO SCH (10:15)
[2020-07-05] MEDS: Aspirin 81 mg Enteric Coated Tablet PO SCH (10:16)
[2020-07-05] MEDS: methylPREDNISolone Sod Succ/PF 100 MG in Sodium Chloride 0.9% 250 ML 250 ML IVPB SCH (10:16)
[2020-07-05] MEDS: Benzonatate 100 MG CAP PO SCH ×3 (10:16→21:49)
[2020-07-05] MEDS: Flecainide 50 MG TAB PO SCH (12:27)
[2020-07-05] MEDS: Enoxaparin Sodium 40 MG/0.4 ML SYRINGE SC SCH (12:27)
[2020-07-05] MEDS: Acetaminophen 325 MG TAB PO PRN (21:47)
[2020-07-05] MEDS: Tamsulosin HCl 0.4 MG CAP PO SCH (21:48)
[2020-07-05] MEDS: Atorvastatin Calcium 40 MG TAB PO SCH (21:49)
[2020-07-05] MEDS: Cholecalciferol 1,000 UNITS (25 MCG) TAB PO SCH (21:49)
[2020-07-05] MEDS: Ezetimibe 10 MG TAB PO SCH (21:49)
[2020-07-05] MEDS: Amitriptyline HCl 25 MG TAB PO SCH (21:49)
[2020-07-05] MEDS: Enoxaparin Sodium 100 MG/ML SYRINGE SC SCH (21:50)
[2020-07-06] MEDS: Diltiazem 125 MG in Sodium Chloride 0.9% 100 ML IVPB SCH ×2 (03:44→20:32)
[2020-07-06 04:08] LABS: #Basophils 0.1 thou/uL (0.0-0.2); #Lymphocytes 0.3 thou/uL (1.20-3.40); #Monocytes 0.8 thou/uL (0.11-0.59); #Neutrophils 6.7 thou/uL (1.40-6.50); %Basophils 0.7 % (0.0-1.0); %Eosinophils 0.1 % (0.0-10.0); %Lymphocytes 3.3 % (21.0-51.0); %Monocytes 9.8 % (0.0-10.0); %Neutrophils 86.1 % (42.0-75.0); Hemoglobin 12.5 g/dL (14.0-18.0); Mean Corpuscular HGB CONC 32.7 g/dL (32.0-36.0); Mean Corpuscular Hemoglobin 32.5 pg (27.0-31.0); Mean Corpuscular Volume 99.6 fL (78.0-98.0); Mean Platelet Volume 9.8 fL (7.4-10.4); Platelet Count 124 thou/uL (130-400); RBC Distribution Width 12.6 % (11.5-14.5); Red Blood Cell (RBC) Count 3.84 mill/uL (4.70-6.10); White Blood Cell (WBC) Count 7.7 thou/uL (4.8-10.8)
[2020-07-06 04:27] LABS: Anion Gap 13 mmol/L (10-20); BUN (Urea Nitrogen) 27 mg/dL (8.4-25.7); CRP (Inflammatory) 1.69 mg/dL (= or < 0.5); Calc. Creatinine Clearance 133 mL/min (70-130); Calcium 8.3 mg/dL (7.8-10.44); Carbon Dioxide 27 mmol/L (23-31); Chloride 101 mmol/L (98-107); Glucose 133 mg/dL (83-110); Potassium 4.4 mmol/L (3.5-5.1); Sodium 137 mmol/L (136-145)
[2020-07-06] MEDS: Ascorbic Acid 500 mg Chewable Tablet PO SCH (08:17)
[2020-07-06] MEDS: Benzonatate 100 MG CAP PO SCH ×3 (08:17→20:32)
[2020-07-06] MEDS: Aspirin 81 mg Enteric Coated Tablet PO SCH (08:17)
[2020-07-06] MEDS: Enoxaparin Sodium 100 MG/ML SYRINGE SC SCH ×2 (08:18→20:32)
[2020-07-06] MEDS: Zinc Sulfate 220 MG CAP PO SCH (08:18)
[2020-07-06] MEDS: methylPREDNISolone Sod Succ/PF 100 MG in Sodium Chloride 0.9% 250 ML 250 ML IVPB SCH (08:18)
[2020-07-06] MEDS ORDERED: Potassium Chloride 20 MEQ TAB PO SCH (13:45)
[2020-07-06] MEDS ORDERED: Furosemide 20 MG/2 ML VIAL SLOW IVP SCH (13:45)
[2020-07-06] MEDS: Ezetimibe 10 MG TAB PO SCH (20:32)
[2020-07-06] MEDS: Cholecalciferol 1,000 UNITS (25 MCG) TAB PO SCH (20:32)
[2020-07-06] MEDS: Atorvastatin Calcium 40 MG TAB PO SCH (20:33)
[2020-07-06] MEDS: Amitriptyline HCl 25 MG TAB PO SCH (20:33)
[2020-07-06] MEDS: Tamsulosin HCl 0.4 MG CAP PO SCH (20:33)
[2020-07-07 04:23] LABS: Anion Gap 12 mmol/L (10-20); BUN (Urea Nitrogen) 28 mg/dL (8.4-25.7); CRP (Inflammatory) 0.81 mg/dL (= or < 0.5); Calc. Creatinine Clearance 145 mL/min (70-130); Calcium 8.3 mg/dL (7.8-10.44); Carbon Dioxide 29 mmol/L (23-31); Chloride 101 mmol/L (98-107); Glucose 110 mg/dL (83-110); Potassium 4.1 mmol/L (3.5-5.1); Sodium 138 mmol/L (136-145)
[2020-07-07 04:25] LABS: #Lymphocytes 0.5 thou/uL (1.20-3.40); #Monocytes 1.1 thou/uL (0.11-0.59); %Lymphocytes 5.2 % (21.0-51.0); %Monocytes 11.5 % (0.0-10.0); %Neutrophils 83.3 % (42.0-75.0); Hemoglobin 12.2 g/dL (14.0-18.0); Mean Corpuscular HGB CONC 33.2 g/dL (32.0-36.0); Mean Corpuscular Volume 99.3 fL (78.0-98.0); Mean Platelet Volume 9.8 fL (7.4-10.4); Platelet Count 116 thou/uL (130-400); RBC Distribution Width 12.5 % (11.5-14.5); White Blood Cell (WBC) Count 9.7 thou/uL (4.8-10.8)
[2020-07-07] MEDS ORDERED: Digoxin 0.5 MG/2 ML AMP SLOW IVP SCH ×2 (08:45→12:00)
[2020-07-07] MEDS: methylPREDNISolone Sod Succ/PF 100 MG in Sodium Chloride 0.9% 250 ML 250 ML IVPB SCH (09:55)
[2020-07-07] MEDS: Ascorbic Acid 500 mg Chewable Tablet PO SCH (09:56)
[2020-07-07] MEDS: Benzonatate 100 MG CAP PO SCH ×3 (09:56→20:21)
[2020-07-07] MEDS: Zinc Sulfate 220 MG CAP PO SCH (09:56)
[2020-07-07] MEDS: Aspirin 81 mg Enteric Coated Tablet PO SCH (09:56)
[2020-07-07] MEDS: Enoxaparin Sodium 100 MG/ML SYRINGE SC SCH (10:00)
[2020-07-07] MEDS: Ascorbic Acid 2,000 MG in Sodium Chloride 0.9% 50 ML IVPB SCH ×3 (12:00→23:48)
[2020-07-07 14:53] LABS: Urobilinogen 0.2 mg/dL (Less than 2); pH, Urine 6.5 (5.0-9.0)
[2020-07-07 14:57] LABS: Clarity Hazy (Clear); Specific Gravity, Urine 1.022 (1.002-1.036)
[2020-07-07 15:00] LABS: Bacteria/HPF 1+ HPF (None Seen); RBC/HPF Greater than 50 HPF (0-3); Squamous Epithelial None Seen HPF (0-3)
[2020-07-07] MEDS: ALPRAZolam 0.25 MG TAB PO PRN (15:21)
[2020-07-07] MEDS: Diltiazem 125 MG in Sodium Chloride 0.9% 100 ML IVPB SCH (19:58)
[2020-07-07] MEDS: Ezetimibe 10 MG TAB PO SCH (20:21)
[2020-07-07] MEDS: Atorvastatin Calcium 40 MG TAB PO SCH (20:21)
[2020-07-07] MEDS: Famotidine 20 MG TAB PO SCH (20:21)
[2020-07-07] MEDS: Amitriptyline HCl 25 MG TAB PO SCH (20:23)
[2020-07-07] MEDS: Cholecalciferol 1,000 UNITS (25 MCG) TAB PO SCH (20:23)
[2020-07-07] MEDS: Tamsulosin HCl 0.4 MG CAP PO SCH (20:27)
[2020-07-08] MEDS: Guaifenesin DM 100-10/5 ML UDCUP PO PRN (03:32)
[2020-07-08] MEDS: Ascorbic Acid 2,000 MG in Sodium Chloride 0.9% 50 ML IVPB SCH ×4 (06:08→23:42)
[2020-07-08] MEDS ORDERED: Digoxin 0.5 MG/2 ML AMP SLOW IVP SCH (08:30)
[2020-07-08] MEDS ORDERED: Digoxin 0.125 MG TAB PO SCH (09:00)
[2020-07-08] MEDS: Potassium Chloride 20 MEQ TAB PO SCH (10:26)
[2020-07-08] MEDS: Furosemide 20 MG/2 ML VIAL SLOW IVP SCH (10:26)
[2020-07-08] MEDS: Benzonatate 100 MG CAP PO SCH ×3 (10:27→20:18)
[2020-07-08] MEDS: Famotidine 20 MG TAB PO SCH ×2 (10:27→20:17)
[2020-07-08] MEDS: Aspirin 81 mg Enteric Coated Tablet PO SCH (10:27)
[2020-07-08] MEDS: Zinc Sulfate 220 MG CAP PO SCH (10:27)
[2020-07-08] MEDS: Ivermectin 3 MG TAB PO SCH (10:28)
[2020-07-08] MEDS: methylPREDNISolone Sod Succ/PF 100 MG in Sodium Chloride 0.9% 250 ML 250 ML IVPB SCH (11:15)
[2020-07-08] MEDS: Acetaminophen 325 MG TAB PO PRN (11:29)
[2020-07-08] MEDS: Cholecalciferol 1,000 UNITS (25 MCG) TAB PO SCH (20:17)
[2020-07-08] MEDS: Tamsulosin HCl 0.4 MG CAP PO SCH (20:18)
[2020-07-08] MEDS: Amitriptyline HCl 25 MG TAB PO SCH (20:18)
[2020-07-08] MEDS: Atorvastatin Calcium 40 MG TAB PO SCH (20:18)
[2020-07-08] MEDS: Ezetimibe 10 MG TAB PO SCH (20:19)
[2020-07-09] MEDS: Ascorbic Acid 2,000 MG in Sodium Chloride 0.9% 50 ML IVPB SCH ×3 (05:59→18:04)
[2020-07-09] MEDS: methylPREDNISolone Sod Succ/PF 100 MG in Sodium Chloride 0.9% 250 ML 250 ML IVPB SCH (10:47)
[2020-07-09] MEDS: Famotidine 20 MG TAB PO SCH ×2 (10:48→21:16)
[2020-07-09] MEDS: Benzonatate 100 MG CAP PO SCH ×3 (10:48→21:15)
[2020-07-09] MEDS: Aspirin 81 mg Enteric Coated Tablet PO SCH (10:48)
[2020-07-09] MEDS: Potassium Chloride 20 MEQ TAB PO SCH (10:48)
[2020-07-09] MEDS: Zinc Sulfate 220 MG CAP PO SCH (10:48)
[2020-07-09] MEDS: Ivermectin 3 MG TAB PO SCH (10:50)
[2020-07-09] MEDS: Furosemide 20 MG/2 ML VIAL SLOW IVP SCH (10:51)
[2020-07-09] MEDS: Enoxaparin Sodium 40 MG/0.4 ML SYRINGE SC SCH ×2 (10:51→21:16)
[2020-07-09] MEDS: Digoxin 0.5 MG/2 ML AMP SLOW IVP SCH (10:52)
[2020-07-09] MEDS: Acetaminophen 325 MG TAB PO PRN (17:26)
[2020-07-09] MEDS: Cholecalciferol 1,000 UNITS (25 MCG) TAB PO SCH (21:14)
[2020-07-09] MEDS: Tamsulosin HCl 0.4 MG CAP PO SCH (21:15)
[2020-07-09] MEDS: Atorvastatin Calcium 40 MG TAB PO SCH (21:16)
[2020-07-09] MEDS: Amitriptyline HCl 25 MG TAB PO SCH (21:16)
[2020-07-09] MEDS: Ezetimibe 10 MG TAB PO SCH (21:16)
[2020-07-10] MEDS: Ascorbic Acid 2,000 MG in Sodium Chloride 0.9% 50 ML IVPB SCH ×5 (00:11→23:34)
[2020-07-10] MEDS: Guaifenesin DM 100-10/5 ML UDCUP PO PRN (01:28)
[2020-07-10 05:48] LABS: #Basophils 0.1 thou/uL (0.0-0.2); #Lymphocytes 0.2 thou/uL (1.20-3.40); #Monocytes 0.8 thou/uL (0.11-0.59); #Neutrophils 6.9 thou/uL (1.40-6.50); %Eosinophils 0.1 % (0.0-10.0); %Monocytes 9.5 % (0.0-10.0); %Neutrophils 86.4 % (42.0-75.0); Hemoglobin 11.5 g/dL (14.0-18.0); Mean Corpuscular HGB CONC 32.7 g/dL (32.0-36.0); Mean Corpuscular Hemoglobin 32.9 pg (27.0-31.0); Platelet Count 80 thou/uL (130-400); RBC Distribution Width 12.7 % (11.5-14.5); Red Blood Cell (RBC) Count 3.48 mill/uL (4.70-6.10)
[2020-07-10 06:02] LABS: Digoxin 0.51 ng/mL (0.8-2.0)
[2020-07-10 06:07] LABS: Anion Gap 10 mmol/L (10-20); BUN (Urea Nitrogen) 26 mg/dL (8.4-25.7); CRP (Inflammatory) Less than 0.50 mg/dL (= or < 0.5); Calc. Creatinine Clearance 141 mL/min (70-130); Calcium 7.6 mg/dL (7.8-10.44); Carbon Dioxide 31 mmol/L (23-31); Chloride 105 mmol/L (98-107); Glucose 110 mg/dL (83-110); Potassium 4.3 mmol/L (3.5-5.1); Sodium 142 mmol/L (136-145)
[2020-07-10] MEDS: Zinc Sulfate 220 MG CAP PO SCH (09:20)
[2020-07-10] MEDS: Famotidine 20 MG TAB PO SCH (09:20)
[2020-07-10] MEDS: Cholecalciferol 1,000 UNITS (25 MCG) TAB PO SCH ×3 (09:20→20:36)
[2020-07-10] MEDS: Potassium Chloride 20 MEQ TAB PO SCH (09:21)
[2020-07-10] MEDS: metFORMIN 500 MG TAB PO SCH (09:21)
[2020-07-10] MEDS: Benzonatate 100 MG CAP PO SCH ×3 (09:21→20:37)
[2020-07-10] MEDS: Furosemide 20 MG/2 ML VIAL SLOW IVP SCH (09:23)
[2020-07-10] MEDS: Aspirin 81 mg Enteric Coated Tablet PO SCH (09:23)
[2020-07-10] MEDS: Digoxin 0.5 MG/2 ML AMP SLOW IVP SCH (09:23)
[2020-07-10] MEDS: Enoxaparin Sodium 40 MG/0.4 ML SYRINGE SC SCH ×2 (09:24→20:39)
[2020-07-10] MEDS: Ivermectin 3 MG TAB PO SCH (10:22)
[2020-07-10] MEDS ORDERED: Zolpidem Tartrate 5 MG TAB PO PRN (11:55)
[2020-07-10] MEDS: methylPREDNISolone Sod Succ/PF 100 MG in Sodium Chloride 0.9% 250 ML 250 ML IVPB SCH (15:22)
[2020-07-10] MEDS: ALPRAZolam 0.25 MG TAB PO PRN (15:30)
[2020-07-10] MEDS: Ezetimibe 10 MG TAB PO SCH (20:36)
[2020-07-10] MEDS: Nystatin 500,000 UNITS/5 ML UDCUP SSW SCH (20:36)
[2020-07-10] MEDS: Amitriptyline HCl 25 MG TAB PO SCH (20:37)
[2020-07-10] MEDS: Atorvastatin Calcium 40 MG TAB PO SCH (20:38)
[2020-07-10] MEDS: Melatonin 3 MG TAB PO PRN (20:38)
[2020-07-10] MEDS: Tamsulosin HCl 0.4 MG CAP PO SCH (20:38)
[2020-07-10] MEDS: Acyclovir Sodium 730 MG in Sodium Chloride 0.9% 100 ML IVPB SCH (21:32)
[2020-07-11] MEDS: Guaifenesin DM 100-10/5 ML UDCUP PO PRN (02:24)
[2020-07-11] MEDS: Ascorbic Acid 2,000 MG in Sodium Chloride 0.9% 50 ML IVPB SCH ×4 (05:30→23:46)
[2020-07-11] MEDS: Acyclovir Sodium 730 MG in Sodium Chloride 0.9% 100 ML IVPB SCH ×3 (05:30→22:01)
[2020-07-11] MEDS: Enoxaparin Sodium 40 MG/0.4 ML SYRINGE SC SCH (10:04)
[2020-07-11] MEDS: Ivermectin 3 MG TAB PO SCH (10:04)
[2020-07-11] MEDS: Digoxin 0.5 MG/2 ML AMP SLOW IVP SCH (10:05)
[2020-07-11] MEDS: Aspirin 81 mg Enteric Coated Tablet PO SCH (10:05)
[2020-07-11] MEDS: Cholecalciferol 1,000 UNITS (25 MCG) TAB PO SCH ×2 (10:05→20:01)
[2020-07-11] MEDS: metFORMIN 500 MG TAB PO SCH (10:05)
[2020-07-11] MEDS: Zinc Sulfate 220 MG CAP PO SCH (10:05)
[2020-07-11] MEDS: Potassium Chloride 20 MEQ TAB PO SCH (10:06)
[2020-07-11] MEDS: Nystatin 500,000 UNITS/5 ML UDCUP SSW SCH ×4 (10:06→20:02)
[2020-07-11] MEDS: Benzonatate 100 MG CAP PO SCH ×3 (10:06→20:03)
[2020-07-11] MEDS: Fluconazole In NaCl,Iso-Osm 200 MG in Premix Bag 1 BAG IVPB SCH (10:06)
[2020-07-11] MEDS: Furosemide 20 MG/2 ML VIAL SLOW IVP SCH (10:07)
[2020-07-11] MEDS: ALPRAZolam 0.25 MG TAB PO PRN (10:08)
[2020-07-11] MEDS: methylPREDNISolone Sod Succ/PF 100 MG in Sodium Chloride 0.9% 250 ML 250 ML IVPB SCH (10:17)
[2020-07-11] MEDS ORDERED: Ivermectin 3 MG TAB PO SCH (10:30)
[2020-07-11] MEDS: Ezetimibe 10 MG TAB PO SCH (20:00)
[2020-07-11] MEDS: Amitriptyline HCl 25 MG TAB PO SCH (20:01)
[2020-07-11] MEDS: Tamsulosin HCl 0.4 MG CAP PO SCH (20:01)
[2020-07-11] MEDS: Atorvastatin Calcium 40 MG TAB PO SCH (20:01)
[2020-07-12 04:04] LABS: #Lymphocytes 0.3 thou/uL (1.20-3.40); #Neutrophils 6.7 thou/uL (1.40-6.50); %Basophils 0.2 % (0.0-1.0); %Lymphocytes 3.9 % (21.0-51.0); %Monocytes 12.7 % (0.0-10.0); %Neutrophils 83.3 % (42.0-75.0); Hemoglobin 11.5 g/dL (14.0-18.0); Mean Corpuscular HGB CONC 33.4 g/dL (32.0-36.0); Mean Corpuscular Hemoglobin 33.3 pg (27.0-31.0); Mean Corpuscular Volume 99.7 fL (78.0-98.0); Mean Platelet Volume 9.5 fL (7.4-10.4); Platelet Count 68 thou/uL (130-400); RBC Distribution Width 12.8 % (11.5-14.5); Red Blood Cell (RBC) Count 3.44 mill/uL (4.70-6.10); White Blood Cell (WBC) Count 8.1 thou/uL (4.8-10.8)
[2020-07-12] MEDS: Acyclovir Sodium 730 MG in Sodium Chloride 0.9% 100 ML IVPB SCH ×3 (06:10→21:52)
[2020-07-12] MEDS: Ascorbic Acid 2,000 MG in Sodium Chloride 0.9% 50 ML IVPB SCH ×3 (06:11→18:37)
[2020-07-12] MEDS: methylPREDNISolone Sod Succ/PF 100 MG in Sodium Chloride 0.9% 250 ML 250 ML IVPB SCH (09:25)
[2020-07-12] MEDS: Fluconazole In NaCl,Iso-Osm 200 MG in Premix Bag 1 BAG IVPB SCH (09:25)
[2020-07-12] MEDS: Zinc Sulfate 220 MG CAP PO SCH (09:26)
[2020-07-12] MEDS: Furosemide 20 MG/2 ML VIAL SLOW IVP SCH (09:26)
[2020-07-12] MEDS: metFORMIN 500 MG TAB PO SCH (09:26)
[2020-07-12] MEDS: Nystatin 500,000 UNITS/5 ML UDCUP SSW SCH ×4 (09:26→20:34)
[2020-07-12] MEDS: Aspirin 81 mg Enteric Coated Tablet PO SCH (09:27)
[2020-07-12] MEDS: Digoxin 0.5 MG/2 ML AMP SLOW IVP SCH (09:27)
[2020-07-12] MEDS: Cholecalciferol 1,000 UNITS (25 MCG) TAB PO SCH ×2 (09:27→20:32)
[2020-07-12] MEDS: Benzonatate 100 MG CAP PO SCH ×3 (09:27→20:33)
[2020-07-12] MEDS: Potassium Chloride 20 MEQ TAB PO SCH (09:28)
[2020-07-12] MEDS ORDERED: Spironolactone 25 MG TAB PO SCH (09:30)
[2020-07-12] MEDS: Ivermectin 3 MG TAB PO SCH (09:35)
[2020-07-12] MEDS: ALPRAZolam 0.25 MG TAB PO PRN (09:52)
[2020-07-12] MEDS: Ezetimibe 10 MG TAB PO SCH (20:32)
[2020-07-12] MEDS: Tamsulosin HCl 0.4 MG CAP PO SCH (20:32)
[2020-07-12] MEDS: Atorvastatin Calcium 40 MG TAB PO SCH (20:33)
[2020-07-12] MEDS: Amitriptyline HCl 25 MG TAB PO SCH (20:33)
[2020-07-12] MEDS ORDERED: Enoxaparin Sodium 40 MG/0.4 ML SYRINGE SC SCH (21:00)
[2020-07-13] MEDS: Ascorbic Acid 2,000 MG in Sodium Chloride 0.9% 50 ML IVPB SCH ×4 (02:24→18:23)
[2020-07-13 06:10] LABS: #Lymphocytes 0.4 thou/uL (1.20-3.40); #Monocytes 1.1 thou/uL (0.11-0.59); #Neutrophils 7.6 thou/uL (1.40-6.50); %Eosinophils 0.1 % (0.0-10.0); %Lymphocytes 4.1 % (21.0-51.0); %Monocytes 12.3 % (0.0-10.0); %Neutrophils 83.5 % (42.0-75.0); Hemoglobin 11.8 g/dL (14.0-18.0); Mean Corpuscular Hemoglobin 32.8 pg (27.0-31.0); Mean Corpuscular Volume 99.6 fL (78.0-98.0); Mean Platelet Volume 9.9 fL (7.4-10.4); Platelet Count 70 thou/uL (130-400); RBC Distribution Width 12.9 % (11.5-14.5); White Blood Cell (WBC) Count 9.1 thou/uL (4.8-10.8)
[2020-07-13 06:32] LABS: Anion Gap 11 mmol/L (10-20); BUN (Urea Nitrogen) 24 mg/dL (8.4-25.7); CRP (Inflammatory) Less than 0.50 mg/dL (= or < 0.5); Calc. Creatinine Clearance 148 mL/min (70-130); Calcium 7.7 mg/dL (7.8-10.44); Carbon Dioxide 29 mmol/L (23-31); Chloride 105 mmol/L (98-107); Glucose 110 mg/dL (83-110); Potassium 4.4 mmol/L (3.5-5.1); Sodium 141 mmol/L (136-145)
[2020-07-13] MEDS: Acyclovir Sodium 730 MG in Sodium Chloride 0.9% 100 ML IVPB SCH ×3 (06:51→22:09)
[2020-07-13] MEDS: Nystatin 500,000 UNITS/5 ML UDCUP SSW SCH ×4 (09:52→22:07)
[2020-07-13] MEDS: ALPRAZolam 0.25 MG TAB PO PRN (09:52)
[2020-07-13] MEDS: methylPREDNISolone Sod Succ/PF 100 MG in Sodium Chloride 0.9% 250 ML 250 ML IVPB SCH ×2 (09:52→09:56)
[2020-07-13] MEDS: Fluconazole In NaCl,Iso-Osm 200 MG in Premix Bag 1 BAG IVPB SCH (09:52)
[2020-07-13] MEDS: Furosemide 20 MG/2 ML VIAL SLOW IVP SCH (09:53)
[2020-07-13] MEDS: Digoxin 0.5 MG/2 ML AMP SLOW IVP SCH (09:53)
[2020-07-13] MEDS: Apixaban 2.5 MG TAB PO SCH (09:53)
[2020-07-13] MEDS: Benzonatate 100 MG CAP PO SCH ×3 (09:54→20:46)
[2020-07-13] MEDS: Cholecalciferol 1,000 UNITS (25 MCG) TAB PO SCH ×2 (09:54→20:44)
[2020-07-13] MEDS: Spironolactone 25 MG TAB PO SCH (09:55)
[2020-07-13] MEDS: metFORMIN 500 MG TAB PO SCH (09:55)
[2020-07-13] MEDS: Zinc Sulfate 220 MG CAP PO SCH (09:55)
[2020-07-13] MEDS: Ivermectin 3 MG TAB PO SCH (10:13)
[2020-07-13] MEDS: Tamsulosin HCl 0.4 MG CAP PO SCH (20:46)
[2020-07-13] MEDS: Amitriptyline HCl 25 MG TAB PO SCH (20:46)
[2020-07-13] MEDS: Ezetimibe 10 MG TAB PO SCH (20:46)
[2020-07-13] MEDS: Atorvastatin Calcium 40 MG TAB PO SCH (20:47)
[2020-07-13 23:36] LABS: HSV-1 IgG Type Specific 8.51 index (0.00-0.90); HSV-2 IgG Type Specific 1.39 index (0.00-0.90)
[2020-07-14] MEDS: Ascorbic Acid 2,000 MG in Sodium Chloride 0.9% 50 ML IVPB SCH ×2 (05:35→06:07)
[2020-07-14] MEDS: Acyclovir Sodium 730 MG in Sodium Chloride 0.9% 100 ML IVPB SCH ×3 (06:07→20:52)
[2020-07-14] MEDS: Fluconazole In NaCl,Iso-Osm 200 MG in Premix Bag 1 BAG IVPB SCH (09:40)
[2020-07-14] MEDS: Digoxin 0.5 MG/2 ML AMP SLOW IVP SCH (09:40)
[2020-07-14] MEDS: methylPREDNISolone Sod Succ/PF 100 MG in Sodium Chloride 0.9% 250 ML 250 ML IVPB SCH (09:40)
[2020-07-14] MEDS: Nystatin 500,000 UNITS/5 ML UDCUP SSW SCH ×4 (09:41→20:51)
[2020-07-14] MEDS: Furosemide 20 MG/2 ML VIAL SLOW IVP SCH (09:41)
[2020-07-14] MEDS: metFORMIN 500 MG TAB PO SCH (09:42)
[2020-07-14] MEDS: Apixaban 2.5 MG TAB PO SCH ×2 (09:42→20:48)
[2020-07-14] MEDS: Ascorbic Acid 500 mg Chewable Tablet PO SCH ×2 (09:42→20:45)
[2020-07-14] MEDS: Benzonatate 100 MG CAP PO SCH ×3 (09:43→20:48)
[2020-07-14] MEDS: Spironolactone 25 MG TAB PO SCH (09:43)
[2020-07-14] MEDS: Zinc Sulfate 220 MG CAP PO SCH (09:43)
[2020-07-14] MEDS: Ivermectin 3 MG TAB PO SCH (09:43)
[2020-07-14] MEDS: Cholecalciferol 1,000 UNITS (25 MCG) TAB PO SCH ×2 (10:14→20:46)
[2020-07-14] MEDS: ALPRAZolam 0.25 MG TAB PO PRN (10:20)
[2020-07-14] MEDS: Atorvastatin Calcium 40 MG TAB PO SCH (20:47)
[2020-07-14] MEDS: Ezetimibe 10 MG TAB PO SCH (20:49)
[2020-07-14] MEDS: Amitriptyline HCl 25 MG TAB PO SCH (20:49)
[2020-07-14] MEDS: Tamsulosin HCl 0.4 MG CAP PO SCH (20:49)
[2020-07-15 03:51] LABS: Hemoglobin 11.9 g/dL (14.0-18.0); Mean Corpuscular HGB CONC 33.4 g/dL (32.0-36.0); Mean Corpuscular Hemoglobin 33.3 pg (27.0-31.0); Mean Corpuscular Volume 99.7 fL (78.0-98.0); Mean Platelet Volume 9.6 fL (7.4-10.4); Platelet Count 66 thou/uL (130-400); RBC Distribution Width 13.1 % (11.5-14.5); Red Blood Cell (RBC) Count 3.56 mill/uL (4.70-6.10); White Blood Cell (WBC) Count 9.1 thou/uL (4.8-10.8)
[2020-07-15 04:02] LABS: Anion Gap 16 mmol/L (10-20); BUN (Urea Nitrogen) 23 mg/dL (8.4-25.7); Calc. Creatinine Clearance 144 mL/min (70-130); Calcium 7.9 mg/dL (7.8-10.44); Carbon Dioxide 26 mmol/L (23-31); Chloride 101 mmol/L (98-107); Glucose 125 mg/dL (83-110); Potassium 4.3 mmol/L (3.5-5.1); Sodium 139 mmol/L (136-145)
[2020-07-15 04:18] LABS: Lymphocytes 5 % (21-51); MDiff Complete? YES; Metamyelocyte 1 % (0-0); Monocytes 18 % (0-10); Neutrophil 76 % (42-75); Nucleated RBC 1 % (0)
[2020-07-15] MEDS: Acyclovir Sodium 730 MG in Sodium Chloride 0.9% 100 ML IVPB SCH (06:21)
[2020-07-15] MEDS: Nystatin 500,000 UNITS/5 ML UDCUP SSW SCH ×4 (09:07→21:27)
[2020-07-15] MEDS: Furosemide 20 MG/2 ML VIAL SLOW IVP SCH (09:07)
[2020-07-15] MEDS: Digoxin 0.5 MG/2 ML AMP SLOW IVP SCH (09:08)
[2020-07-15] MEDS: Zinc Sulfate 220 MG CAP PO SCH (09:09)
[2020-07-15] MEDS: Spironolactone 25 MG TAB PO SCH (09:09)
[2020-07-15] MEDS: methylPREDNISolone Sod Succ/PF 100 MG in Sodium Chloride 0.9% 250 ML 250 ML IVPB SCH (09:09)
[2020-07-15] MEDS: Ascorbic Acid 500 mg Chewable Tablet PO SCH ×2 (09:10→21:47)
[2020-07-15] MEDS: Apixaban 2.5 MG TAB PO SCH ×2 (09:10→21:22)
[2020-07-15] MEDS: metFORMIN 500 MG TAB PO SCH (09:10)
[2020-07-15] MEDS: Benzonatate 100 MG CAP PO SCH ×3 (09:10→21:23)
[2020-07-15] MEDS: Ivermectin 3 MG TAB PO SCH (09:10)
[2020-07-15] MEDS: Fluconazole In NaCl,Iso-Osm 200 MG in Premix Bag 1 BAG IVPB SCH (09:31)
[2020-07-15] MEDS: Acyclovir 200 mg Capsule PO SCH ×3 (13:02→21:22)
[2020-07-15] MEDS: Atorvastatin Calcium 40 MG TAB PO SCH (21:19)
[2020-07-15] MEDS: Cholecalciferol 1,000 UNITS (25 MCG) TAB PO SCH (21:20)
[2020-07-15] MEDS: Amitriptyline HCl 25 MG TAB PO SCH (21:22)
[2020-07-15] MEDS: Tamsulosin HCl 0.4 MG CAP PO SCH (21:23)
[2020-07-15] MEDS: Ezetimibe 10 MG TAB PO SCH (21:23)
[2020-07-15] MEDS: Melatonin 3 MG TAB PO PRN (21:42)
[2020-07-16] MEDS: Acyclovir 200 mg Capsule PO SCH ×3 (01:16→12:46)
[2020-07-16 04:05] LABS: #Lymphocytes 0.3 thou/uL (1.20-3.40); #Monocytes 0.9 thou/uL (0.11-0.59); #Neutrophils 7.1 thou/uL (1.40-6.50); %Basophils 0.1 % (0.0-1.0); %Eosinophils 0.1 % (0.0-10.0); %Lymphocytes 3.1 % (21.0-51.0); %Monocytes 10.6 % (0.0-10.0); %Neutrophils 86.1 % (42.0-75.0); Hemoglobin 11.4 g/dL (14.0-18.0); Mean Corpuscular HGB CONC 33.3 g/dL (32.0-36.0); Mean Corpuscular Hemoglobin 33.1 pg (27.0-31.0); Mean Corpuscular Volume 99.5 fL (78.0-98.0); Mean Platelet Volume 9.7 fL (7.4-10.4); Platelet Count 55 thou/uL (130-400); RBC Distribution Width 13.3 % (11.5-14.5); Red Blood Cell (RBC) Count 3.45 mill/uL (4.70-6.10); White Blood Cell (WBC) Count 8.3 thou/uL (4.8-10.8)
[2020-07-16 04:22] LABS: Anion Gap 13 mmol/L (10-20); BUN (Urea Nitrogen) 24 mg/dL (8.4-25.7); Calc. Creatinine Clearance 151 mL/min (70-130); Calcium 7.9 mg/dL (7.8-10.44); Carbon Dioxide 32 mmol/L (23-31); Chloride 100 mmol/L (98-107); Glucose 136 mg/dL (83-110); Potassium 4.4 mmol/L (3.5-5.1); Sodium 141 mmol/L (136-145)
[2020-07-16 06:38] LABS: Hemoglobin 11.3 g/dL (14.0-18.0); Mean Corpuscular HGB CONC 32.5 g/dL (32.0-36.0); Mean Corpuscular Hemoglobin 32.6 pg (27.0-31.0); Mean Platelet Volume 9.6 fL (7.4-10.4); Platelet Count 58 thou/uL (130-400); RBC Distribution Width 13.4 % (11.5-14.5); Red Blood Cell (RBC) Count 3.48 mill/uL (4.70-6.10); White Blood Cell (WBC) Count 8.4 thou/uL (4.8-10.8)
[2020-07-16 06:53] LABS: Anion Gap 12 mmol/L (10-20); BUN (Urea Nitrogen) 23 mg/dL (8.4-25.7); CRP (Inflammatory) Less than 0.50 mg/dL (= or < 0.5); Calc. Creatinine Clearance 148 mL/min (70-130); Calcium 7.8 mg/dL (7.8-10.44); Carbon Dioxide 34 mmol/L (23-31); Chloride 100 mmol/L (98-107); Glucose 137 mg/dL (83-110); Potassium 4.5 mmol/L (3.5-5.1); Sodium 141 mmol/L (136-145)
[2020-07-16 07:24] LABS: Band 8 % (5-11); Lymphocytes 15 % (21-51); MDiff Complete? YES; Neutrophil 77 % (42-75); Platelet Morphology Comment Appears Decreased
[2020-07-16] MEDS: Ascorbic Acid 500 mg Chewable Tablet PO SCH ×2 (09:18→20:51)
[2020-07-16] MEDS: Spironolactone 25 MG TAB PO SCH (09:18)
[2020-07-16] MEDS: Benzonatate 100 MG CAP PO SCH ×3 (09:19→20:51)
[2020-07-16] MEDS: Nystatin 500,000 UNITS/5 ML UDCUP SSW SCH ×4 (09:19→20:52)
[2020-07-16] MEDS: metFORMIN 500 MG TAB PO SCH (09:19)
[2020-07-16] MEDS: Furosemide 20 MG/2 ML VIAL SLOW IVP SCH (09:19)
[2020-07-16] MEDS: Apixaban 2.5 MG TAB PO SCH (09:19)
[2020-07-16] MEDS: Zinc Sulfate 220 MG CAP PO SCH (09:19)
[2020-07-16] MEDS: Digoxin 0.5 MG/2 ML AMP SLOW IVP SCH (09:20)
[2020-07-16] MEDS: Fluconazole In NaCl,Iso-Osm 200 MG in Premix Bag 1 BAG IVPB SCH (09:24)
[2020-07-16] MEDS: HumaLOG 300 UNITS/3 ML VIAL SC PRN ×2 (11:24→17:06)
[2020-07-16] MEDS ORDERED: Lysine 500 MG TAB PO SCH (18:00)
[2020-07-16] MEDS: Ezetimibe 10 MG TAB PO SCH (20:45)
[2020-07-16] MEDS: Cholecalciferol 1,000 UNITS (25 MCG) TAB PO SCH (20:46)
[2020-07-16] MEDS: Amitriptyline HCl 25 MG TAB PO SCH (20:51)
[2020-07-16] MEDS: Atorvastatin Calcium 40 MG TAB PO SCH (20:51)
[2020-07-16] MEDS: Tamsulosin HCl 0.4 MG CAP PO SCH (20:52)
[2020-07-17 04:06] LABS: Anion Gap 13 mmol/L (10-20); BUN (Urea Nitrogen) 22 mg/dL (8.4-25.7); Calc. Creatinine Clearance 156 mL/min (70-130); Carbon Dioxide 32 mmol/L (23-31); Chloride 99 mmol/L (98-107); Glucose 129 mg/dL (83-110); Potassium 4.5 mmol/L (3.5-5.1); Sodium 139 mmol/L (136-145)
[2020-07-17 04:19] LABS: Band 12 % (5-11); Hemoglobin 11.8 g/dL (14.0-18.0); Lymphocytes 1 % (21-51); MDiff Complete? YES; Macrocytosis SLIGHT = 6-15 cells (100X) (0-5/hpf); Mean Platelet Volume 9.2 fL (7.4-10.4); Monocytes 5 % (0-10); Neutrophil 82 % (42-75); Platelet Count 55 thou/uL (130-400); Platelet Morphology Comment Appears Decreased; RBC Distribution Width 13.4 % (11.5-14.5); Red Blood Cell (RBC) Count 3.58 mill/uL (4.70-6.10); White Blood Cell (WBC) Count 9.3 thou/uL (4.8-10.8)
[2020-07-17] MEDS: Ascorbic Acid 500 mg Chewable Tablet PO SCH ×2 (09:15→21:18)
[2020-07-17] MEDS: Zinc Sulfate 220 MG CAP PO SCH (09:15)
[2020-07-17] MEDS: Benzonatate 100 MG CAP PO SCH ×3 (09:16→21:16)
[2020-07-17] MEDS: Spironolactone 25 MG TAB PO SCH (09:16)
[2020-07-17] MEDS: metFORMIN 500 MG TAB PO SCH (09:16)
[2020-07-17] MEDS: Fluconazole In NaCl,Iso-Osm 200 MG in Premix Bag 1 BAG IVPB SCH (09:17)
[2020-07-17] MEDS: Nystatin 500,000 UNITS/5 ML UDCUP SSW SCH ×4 (09:17→21:18)
[2020-07-17] MEDS: Digoxin 0.5 MG/2 ML AMP SLOW IVP SCH (09:18)
[2020-07-17] MEDS: methylPREDNISolone Sod Succ/PF 100 MG in Sodium Chloride 0.9% 250 ML 250 ML IVPB SCH ×2 (10:12→15:01)
[2020-07-17] MEDS: HumaLOG 300 UNITS/3 ML VIAL SC PRN (11:32)
[2020-07-17] MEDS: ALPRAZolam 0.25 MG TAB PO PRN (12:43)
[2020-07-17] MEDS: Cholecalciferol 1,000 UNITS (25 MCG) TAB PO SCH (21:17)
[2020-07-17] MEDS: Ezetimibe 10 MG TAB PO SCH (21:17)
[2020-07-17] MEDS: Amitriptyline HCl 25 MG TAB PO SCH (21:17)
[2020-07-17] MEDS: Tamsulosin HCl 0.4 MG CAP PO SCH (21:18)
[2020-07-17] MEDS: Atorvastatin Calcium 40 MG TAB PO SCH (21:18)
[2020-07-18 04:18] LABS: Digoxin 0.71 ng/mL (0.8-2.0)
[2020-07-18] MEDS: Spironolactone 25 MG TAB PO SCH (09:29)
[2020-07-18] MEDS: Benzonatate 100 MG CAP PO SCH ×3 (09:29→22:01)
[2020-07-18] MEDS: Ascorbic Acid 500 mg Chewable Tablet PO SCH ×2 (09:29→22:00)
[2020-07-18] MEDS: Zinc Sulfate 220 MG CAP PO SCH (09:30)
[2020-07-18] MEDS: metFORMIN 500 MG TAB PO SCH (09:30)
[2020-07-18] MEDS: Nystatin 500,000 UNITS/5 ML UDCUP SSW SCH ×4 (09:30→22:02)
[2020-07-18] MEDS: Digoxin 0.5 MG/2 ML AMP SLOW IVP SCH (09:31)
[2020-07-18] MEDS: Fluconazole In NaCl,Iso-Osm 200 MG in Premix Bag 1 BAG IVPB SCH (11:53)
[2020-07-18] MEDS: ALPRAZolam 0.25 MG TAB PO PRN (13:38)
[2020-07-18] MEDS: methylPREDNISolone Sod Succ/PF 100 MG in Sodium Chloride 0.9% 250 ML 250 ML IVPB SCH (15:22)
[2020-07-18 16:48] LABS: Hemoglobin 12.4 g/dL (14.0-18.0); Mean Corpuscular HGB CONC 32.9 g/dL (32.0-36.0); Mean Corpuscular Hemoglobin 33.1 pg (27.0-31.0); Mean Platelet Volume 9.6 fL (7.4-10.4); Platelet Count 48 thou/uL (130-400); RBC Distribution Width 14.1 % (11.5-14.5); Red Blood Cell (RBC) Count 3.74 mill/uL (4.70-6.10); White Blood Cell (WBC) Count 11.8 thou/uL (4.8-10.8)
[2020-07-18] MEDS: Ezetimibe 10 MG TAB PO SCH (21:58)
[2020-07-18] MEDS: Amitriptyline HCl 25 MG TAB PO SCH (21:58)
[2020-07-18] MEDS: Melatonin 3 MG TAB PO PRN (21:59)
[2020-07-18] MEDS: Atorvastatin Calcium 40 MG TAB PO SCH (22:00)
[2020-07-18] MEDS: Tamsulosin HCl 0.4 MG CAP PO SCH (22:01)
[2020-07-18] MEDS: Cholecalciferol 1,000 UNITS (25 MCG) TAB PO SCH (22:01)
[2020-07-19 04:17] LABS: #Lymphocytes 0.2 thou/uL (1.20-3.40); #Neutrophils 8.1 thou/uL (1.40-6.50); %Basophils 0.1 % (0.0-1.0); %Eosinophils 0.1 % (0.0-10.0); %Lymphocytes 2.1 % (21.0-51.0); %Monocytes 10.3 % (0.0-10.0); %Neutrophils 87.4 % (42.0-75.0); Anion Gap 15 mmol/L (10-20); BUN (Urea Nitrogen) 22 mg/dL (8.4-25.7); CRP (Inflammatory) Less than 0.50 mg/dL (= or < 0.5); Calc. Creatinine Clearance 140 mL/min (70-130); Calcium 7.8 mg/dL (7.8-10.44); Carbon Dioxide 28 mmol/L (23-31); Chloride 99 mmol/L (98-107); Glucose 125 mg/dL (83-110); Hemoglobin 12.3 g/dL (14.0-18.0); Mean Corpuscular HGB CONC 33.1 g/dL (32.0-36.0); Mean Corpuscular Hemoglobin 33.3 pg (27.0-31.0); Mean Platelet Volume 9.7 fL (7.4-10.4); Platelet Count 53 thou/uL (130-400); Potassium 4.8 mmol/L (3.5-5.1); RBC Distribution Width 14.1 % (11.5-14.5); Sodium 137 mmol/L (136-145); White Blood Cell (WBC) Count 9.3 thou/uL (4.8-10.8)
[2020-07-19] MEDS: Digoxin 0.125 MG TAB PO SCH (09:01)
[2020-07-19] MEDS: Zinc Sulfate 220 MG CAP PO SCH (09:01)
[2020-07-19] MEDS: metFORMIN 500 MG TAB PO SCH (09:01)
[2020-07-19] MEDS: Spironolactone 25 MG TAB PO SCH (09:01)
[2020-07-19] MEDS: Benzonatate 100 MG CAP PO SCH ×3 (09:01→20:26)
[2020-07-19] MEDS: ALPRAZolam 0.25 MG TAB PO PRN (09:01)
[2020-07-19] MEDS: Ascorbic Acid 500 mg Chewable Tablet PO SCH ×2 (09:02→20:26)
[2020-07-19] MEDS: Nystatin 500,000 UNITS/5 ML UDCUP SSW SCH ×4 (09:02→20:26)
[2020-07-19] MEDS: methylPREDNISolone Sod Succ/PF 100 MG in Sodium Chloride 0.9% 250 ML 250 ML IVPB SCH (13:38)
[2020-07-19] MEDS: Atorvastatin Calcium 40 MG TAB PO SCH (20:26)
[2020-07-19] MEDS: Melatonin 3 MG TAB PO PRN (20:27)
[2020-07-19] MEDS: Ezetimibe 10 MG TAB PO SCH (20:27)
[2020-07-19] MEDS: Tamsulosin HCl 0.4 MG CAP PO SCH (20:27)
[2020-07-19] MEDS: Amitriptyline HCl 25 MG TAB PO SCH (20:27)
[2020-07-19] MEDS: Cholecalciferol 1,000 UNITS (25 MCG) TAB PO SCH (20:28)
[2020-07-20 08:54] LABS: Hemoglobin 12.9 g/dL (14.0-18.0); Mean Corpuscular HGB CONC 32.7 g/dL (32.0-36.0); Mean Corpuscular Hemoglobin 32.9 pg (27.0-31.0); Mean Platelet Volume 9.4 fL (7.4-10.4); Platelet Count 48 thou/uL (130-400); RBC Distribution Width 14.3 % (11.5-14.5); Red Blood Cell (RBC) Count 3.92 mill/uL (4.70-6.10); White Blood Cell (WBC) Count 10.6 thou/uL (4.8-10.8)
[2020-07-20] MEDS: Zinc Sulfate 220 MG CAP PO SCH (10:21)
[2020-07-20] MEDS: Ascorbic Acid 500 mg Chewable Tablet PO SCH ×2 (10:21→20:50)
[2020-07-20] MEDS: Spironolactone 25 MG TAB PO SCH (10:21)
[2020-07-20] MEDS: Nystatin 500,000 UNITS/5 ML UDCUP SSW SCH ×4 (10:21→20:48)
[2020-07-20] MEDS: predniSONE 20 MG TAB PO SCH (10:21)
[2020-07-20] MEDS: metFORMIN 500 MG TAB PO SCH (10:22)
[2020-07-20] MEDS: Digoxin 0.125 MG TAB PO SCH (10:22)
[2020-07-20] MEDS: Benzonatate 100 MG CAP PO SCH ×3 (10:22→20:50)
[2020-07-20] MEDS: Tamsulosin HCl 0.4 MG CAP PO SCH (20:48)
[2020-07-20] MEDS: Ezetimibe 10 MG TAB PO SCH (20:48)
[2020-07-20] MEDS: Cholecalciferol 1,000 UNITS (25 MCG) TAB PO SCH (20:49)
[2020-07-20] MEDS: Amitriptyline HCl 25 MG TAB PO SCH (20:50)
[2020-07-20] MEDS: Atorvastatin Calcium 40 MG TAB PO SCH (20:50)
[2020-07-20] MEDS: Melatonin 3 MG TAB PO PRN (20:53)
[2020-07-20] MEDS ORDERED: Metoprolol Tartrate 25 MG TAB PO SCH (21:00)
[2020-07-21 03:39] LABS: Hemoglobin 12.3 g/dL (14.0-18.0); Mean Corpuscular HGB CONC 32.1 g/dL (32.0-36.0); Mean Corpuscular Hemoglobin 32.1 pg (27.0-31.0); Mean Platelet Volume 9.7 fL (7.4-10.4); Platelet Count 38 thou/uL (130-400); RBC Distribution Width 14.3 % (11.5-14.5); Red Blood Cell (RBC) Count 3.83 mill/uL (4.70-6.10); White Blood Cell (WBC) Count 10.9 thou/uL (4.8-10.8)
[2020-07-21] MEDS: predniSONE 20 MG TAB PO SCH (09:21)
[2020-07-21] MEDS: Nystatin 500,000 UNITS/5 ML UDCUP SSW SCH ×4 (09:21→21:26)
[2020-07-21] MEDS: Ascorbic Acid 500 mg Chewable Tablet PO SCH ×2 (09:22→21:26)
[2020-07-21] MEDS: Digoxin 0.125 MG TAB PO SCH (09:22)
[2020-07-21] MEDS: ALPRAZolam 0.25 MG TAB PO PRN (09:22)
[2020-07-21] MEDS: metFORMIN 500 MG TAB PO SCH (09:22)
[2020-07-21] MEDS: Zinc Sulfate 220 MG CAP PO SCH (09:22)
[2020-07-21] MEDS: Benzonatate 100 MG CAP PO SCH ×3 (09:22→21:26)
[2020-07-21] MEDS: Metoprolol Tartrate 50 MG TAB PO SCH (09:22)
[2020-07-21] MEDS: Spironolactone 25 MG TAB PO SCH (09:22)
[2020-07-21] MEDS: Acetaminophen 325 MG TAB PO PRN (12:38)
[2020-07-21] MEDS ORDERED: Metoprolol Tartrate 25 MG TAB PO SCH (21:00)
[2020-07-21] MEDS: Cholecalciferol 1,000 UNITS (25 MCG) TAB PO SCH (21:25)
[2020-07-21] MEDS: Ezetimibe 10 MG TAB PO SCH (21:25)
[2020-07-21] MEDS: Atorvastatin Calcium 40 MG TAB PO SCH (21:25)
[2020-07-21] MEDS: Amitriptyline HCl 25 MG TAB PO SCH (21:25)
[2020-07-21] MEDS: Tamsulosin HCl 0.4 MG CAP PO SCH (21:26)
[2020-07-22] MEDS: ALPRAZolam 0.25 MG TAB PO PRN ×3 (00:28→22:38)
[2020-07-22] MEDS: Guaifenesin DM 100-10/5 ML UDCUP PO PRN (00:29)
[2020-07-22 04:03] LABS: #Lymphocytes 0.4 thou/uL (1.20-3.40); #Monocytes 1.3 thou/uL (0.11-0.59); #Neutrophils 9.3 thou/uL (1.40-6.50); %Basophils 0.4 % (0.0-1.0); %Eosinophils 0.3 % (0.0-10.0); %Lymphocytes 3.3 % (21.0-51.0); %Monocytes 11.8 % (0.0-10.0); %Neutrophils 84.3 % (42.0-75.0); Hemoglobin 12.1 g/dL (14.0-18.0); Mean Corpuscular HGB CONC 33.5 g/dL (32.0-36.0); Mean Corpuscular Hemoglobin 33.4 pg (27.0-31.0); Mean Corpuscular Volume 99.8 fL (78.0-98.0); Mean Platelet Volume 9.5 fL (7.4-10.4); Platelet Count 35 thou/uL (130-400); RBC Distribution Width 14.4 % (11.5-14.5); Red Blood Cell (RBC) Count 3.62 mill/uL (4.70-6.10); White Blood Cell (WBC) Count 11.1 thou/uL (4.8-10.8)
[2020-07-22] MEDS: Acetaminophen 325 MG TAB PO PRN ×3 (06:50→22:39)
[2020-07-22] MEDS: Benzonatate 100 MG CAP PO SCH ×3 (08:08→20:41)
[2020-07-22] MEDS: metFORMIN 500 MG TAB PO SCH (08:08)
[2020-07-22] MEDS: Ascorbic Acid 500 mg Chewable Tablet PO SCH ×2 (08:08→20:42)
[2020-07-22] MEDS: Nystatin 500,000 UNITS/5 ML UDCUP SSW SCH ×4 (08:08→20:41)
[2020-07-22] MEDS: Zinc Sulfate 220 MG CAP PO SCH (08:09)
[2020-07-22] MEDS: Metoprolol Tartrate 50 MG TAB PO SCH (08:20)
[2020-07-22] MEDS: Spironolactone 25 MG TAB PO SCH (08:20)
[2020-07-22] MEDS: predniSONE 20 MG TAB PO SCH (08:22)
[2020-07-22] MEDS ORDERED: Digoxin 0.5 MG/2 ML AMP SLOW IVP SCH (08:30)
[2020-07-22] MEDS ORDERED: Sodium Chloride 0.9% 500 ML IV SCH ×3 (08:45→09:23)
[2020-07-22] MEDS ORDERED: Amiodarone 450 MG in Dextrose 5% in Water 250 ML IVPB SCH (09:30)
[2020-07-22] MEDS ORDERED: Amiodarone 150 MG, Admixture Fee 1 EACH in Dextrose 5% in Water 100 ML IVPB SCH (09:30)
[2020-07-22 09:37] LABS: ALT (SGPT) 93 U/L (8-55); AST (SGOT) 42 U/L (5-34); Alkaline Phosphatase 101 U/L (40-110); Anion Gap 16 mmol/L (10-20); BUN (Urea Nitrogen) 18 mg/dL (8.4-25.7); Bilirubin, Total 2.1 mg/dL (0.2-1.2); Calc. Creatinine Clearance 144 mL/min (70-130); Carbon Dioxide 27 mmol/L (23-31); Chloride 97 mmol/L (98-107); Globulin 2.4 g/dL (2.4-3.5); Glucose 74 mg/dL (83-110); Potassium 4.1 mmol/L (3.5-5.1); Protein, Total 5.4 g/dL (5.8-8.1); Sodium 136 mmol/L (136-145)
[2020-07-22 09:40] LABS: Troponin I 0.176 ng/mL (< 0.028)
[2020-07-22] MEDS ORDERED: Iopamidol-370 76% 500 ML 1 ML ONE (10:00)
[2020-07-22] MEDS ORDERED: Sodium Chloride 0.9% 1,000 ML IV SCH ×2 (10:15→11:38)
[2020-07-22] MEDS: HumaLOG 300 UNITS/3 ML VIAL SC PRN (16:33)
[2020-07-22] MEDS ORDERED: Diltiazem 125 MG in Sodium Chloride 0.9% 100 ML IVPB SCH (17:15)
[2020-07-22] MEDS: Sodium Chloride 0.9% 1,000 ML IV SCH (17:33)
[2020-07-22] MEDS: Cholecalciferol 1,000 UNITS (25 MCG) TAB PO SCH (20:41)
[2020-07-22] MEDS: Amitriptyline HCl 25 MG TAB PO SCH (20:42)
[2020-07-22] MEDS: Ezetimibe 10 MG TAB PO SCH (20:43)
[2020-07-22] MEDS: Atorvastatin Calcium 40 MG TAB PO SCH (20:43)
[2020-07-22] MEDS: Tamsulosin HCl 0.4 MG CAP PO SCH (20:43)
[2020-07-22] MEDS ORDERED: Pregabalin 25 MG CAP PO SCH (21:00)
[2020-07-22] MEDS ORDERED: Morphine 4 MG/ML VIAL ONE (23:13)
[2020-07-22] MEDS ORDERED: Morphine 2 MG/ML VIAL SLOW IVP SCH (23:15)
[2020-07-22] MEDS ORDERED: Nitroglycerin 0.4 MG TAB (25 Tab Bottle) ONE (23:26)
[2020-07-22] MEDS: Nitroglycerin 0.4 MG TAB (25 Tab Bottle) SL PRN (23:28)
[2020-07-22 23:44] LABS: Hemoglobin 11.8 g/dL (14.0-18.0); Mean Corpuscular Hemoglobin 33.5 pg (27.0-31.0); Mean Platelet Volume 9.9 fL (7.4-10.4); Platelet Count 34 thou/uL (130-400); RBC Distribution Width 14.5 % (11.5-14.5); Red Blood Cell (RBC) Count 3.51 mill/uL (4.70-6.10); White Blood Cell (WBC) Count 11.6 thou/uL (4.8-10.8)
[2020-07-22] MEDS ORDERED: diphenhydrAMINE 50 MG/ML VIAL ONE (23:47)
[2020-07-22] MEDS ORDERED: Hydrocortisone Sod Succ/PF 100 mg/2 ml Vial ONE (23:47)
[2020-07-22] MEDS ORDERED: Hydrocortisone Sod Succ/PF 100 mg/2 ml Vial IVP SCH (23:59)
[2020-07-22] MEDS ORDERED: diphenhydrAMINE 50 MG/ML VIAL IVP SCH (23:59)
[2020-07-22] MEDS ORDERED: Famotidine/PF 20 mg/2ml Vial SLOW IVP SCH (23:59)
[2020-07-23 00:01] LABS: ALT (SGPT) 85 U/L (8-55); AST (SGOT) 36 U/L (5-34); Albumin 2.7 g/dL (3.4-4.8); Alkaline Phosphatase 110 U/L (40-110); Anion Gap 14 mmol/L (10-20); BUN (Urea Nitrogen) 15 mg/dL (8.4-25.7); Bilirubin, Direct 0.6 mg/dL (0.1-0.3); Calc. Creatinine Clearance 120 mL/min (70-130); Calcium 7.9 mg/dL (7.8-10.44); Carbon Dioxide 29 mmol/L (23-31); Chloride 99 mmol/L (98-107); Glucose 144 mg/dL (83-110); Lipase 47 U/L (8-78); Potassium 4.6 mmol/L (3.5-5.1); Protein, Total 5.4 g/dL (5.8-8.1); Sodium 137 mmol/L (136-145)
[2020-07-23 00:16] LABS: Lymphocytes 4 % (21-51); MDiff Complete? YES; Monocytes 5 % (0-10); Neutrophil 91 % (42-75); Platelet Morphology Comment Appears Decreased
[2020-07-23 00:26] LABS: CKMB 6.9 ng/mL (0-6.6)
[2020-07-23] MEDS: Nitroglycerin 0.4 MG TAB (25 Tab Bottle) SL PRN (00:59)
[2020-07-23 02:16] LABS: Hemoglobin 11.6 g/dL (14.0-18.0); Mean Corpuscular HGB CONC 32.5 g/dL (32.0-36.0); Mean Platelet Volume 9.5 fL (7.4-10.4); Platelet Count 35 thou/uL (130-400); RBC Distribution Width 14.3 % (11.5-14.5); Red Blood Cell (RBC) Count 3.52 mill/uL (4.70-6.10); White Blood Cell (WBC) Count 11.5 thou/uL (4.8-10.8)
[2020-07-23 02:33] LABS: Band 2 % (5-11); Lymphocytes 8 % (21-51); MDiff Complete? YES; Monocytes 2 % (0-10); Neutrophil 88 % (42-75); Platelet Morphology Comment Appears Decreased
[2020-07-23 02:51] LABS: Anion Gap 14 mmol/L (10-20); BUN (Urea Nitrogen) 15 mg/dL (8.4-25.7); Calc. Creatinine Clearance 126 mL/min (70-130); Calcium 7.7 mg/dL (7.8-10.44); Carbon Dioxide 28 mmol/L (23-31); Chloride 102 mmol/L (98-107); Glucose 139 mg/dL (83-110); Potassium 4.4 mmol/L (3.5-5.1); Sodium 140 mmol/L (136-145)
[2020-07-23] MEDS: Morphine 2 MG/ML VIAL SLOW IVP PRN ×3 (04:13→11:21)
[2020-07-23] MEDS: Guaifenesin DM 100-10/5 ML UDCUP PO PRN (04:54)
[2020-07-23] MEDS ORDERED: Pregabalin 25 MG CAP PO SCH (05:30)
[2020-07-23] MEDS ORDERED: Digoxin 0.5 MG/2 ML AMP SLOW IVP SCH (09:00)
[2020-07-23] MEDS: metFORMIN 500 MG TAB PO SCH (10:03)
[2020-07-23] MEDS: Nystatin 500,000 UNITS/5 ML UDCUP SSW SCH ×2 (10:03→15:47)
[2020-07-23] MEDS: Ascorbic Acid 500 mg Chewable Tablet PO SCH ×2 (10:03→20:54)
[2020-07-23] MEDS: Sodium Chloride 0.9% 1,000 ML IV SCH (10:04)
[2020-07-23] MEDS: Zinc Sulfate 220 MG CAP PO SCH (10:04)
[2020-07-23] MEDS: Benzonatate 100 MG CAP PO SCH ×3 (10:21→20:52)
[2020-07-23] MEDS: predniSONE 20 MG TAB PO SCH ×2 (10:26→20:57)
[2020-07-23] MEDS: Pregabalin 25 MG CAP PO SCH (20:52)
[2020-07-23] MEDS: Atorvastatin Calcium 40 MG TAB PO SCH (20:55)
[2020-07-23] MEDS: Ezetimibe 10 MG TAB PO SCH (20:56)
[2020-07-23] MEDS: Cholecalciferol 1,000 UNITS (25 MCG) TAB PO SCH (20:56)
[2020-07-23] MEDS: Tamsulosin HCl 0.4 MG CAP PO SCH (20:58)
[2020-07-23] MEDS: Amitriptyline HCl 25 MG TAB PO SCH (21:00)
[2020-07-23] MEDS: Acetaminophen 325 MG TAB PO PRN (22:11)
[2020-07-23] MEDS: HumaLOG 300 UNITS/3 ML VIAL SC PRN (22:23)
[2020-07-24] MEDS: Morphine 2 MG/ML VIAL SLOW IVP PRN ×3 (02:05→07:31)
[2020-07-24] MEDS: Nitroglycerin 0.4 MG TAB (25 Tab Bottle) SL PRN (03:56)
[2020-07-24] MEDS: ALPRAZolam 0.25 MG TAB PO PRN ×2 (03:59→11:39)
[2020-07-24 04:02] LABS: Anion Gap 12 mmol/L (10-20); BUN (Urea Nitrogen) 11 mg/dL (8.4-25.7); Calc. Creatinine Clearance 166 mL/min (70-130); Calcium 7.3 mg/dL (7.8-10.44); Carbon Dioxide 26 mmol/L (23-31); Chloride 103 mmol/L (98-107); Glucose 112 mg/dL (83-110); Sodium 137 mmol/L (136-145)
[2020-07-24 04:05] LABS: Band 23 % (5-11); MDiff Complete? YES; Mean Corpuscular HGB CONC 31.9 g/dL (32.0-36.0); Mean Corpuscular Hemoglobin 32.6 pg (27.0-31.0); Mean Platelet Volume 9.9 fL (7.4-10.4); Metamyelocyte 1 % (0-0); Monocytes 17 % (0-10); Neutrophil 59 % (42-75); Platelet Count 31 thou/uL (130-400); Platelet Morphology Comment Appears Decreased; RBC Distribution Width 14.6 % (11.5-14.5); Red Blood Cell (RBC) Count 3.07 mill/uL (4.70-6.10); White Blood Cell (WBC) Count 9.4 thou/uL (4.8-10.8)
[2020-07-24] MEDS: Sodium Chloride 0.9% 1,000 ML IV SCH ×2 (07:43→18:13)
[2020-07-24] MEDS ORDERED: Morphine 2 MG/ML VIAL SLOW IVP SCH (08:15)
[2020-07-24] MEDS ORDERED: Digoxin 0.5 MG/2 ML AMP SLOW IVP SCH (09:00)
[2020-07-24] MEDS ORDERED: Ivermectin 3 MG TAB PO SCH (09:00)
[2020-07-24] MEDS ORDERED: Lidocaine 5% Patch TD SCH (09:00)
[2020-07-24] MEDS ORDERED: Morphine 4 MG/ML VIAL SLOW IVP PRN (09:05)
[2020-07-24] MEDS: Benzonatate 100 MG CAP PO SCH ×3 (10:02→21:07)
[2020-07-24] MEDS: Ascorbic Acid 500 mg Chewable Tablet PO SCH ×2 (10:02→20:55)
[2020-07-24] MEDS: Pregabalin 25 MG CAP PO SCH (10:03)
[2020-07-24] MEDS: metFORMIN 500 MG TAB PO SCH (10:03)
[2020-07-24] MEDS: predniSONE 20 MG TAB PO SCH ×2 (10:03→20:54)
[2020-07-24] MEDS: Zinc Sulfate 220 MG CAP PO SCH (10:03)
[2020-07-24] MEDS: Acetaminophen 325 MG TAB PO PRN (11:39)
[2020-07-24] MEDS ORDERED: Ketorolac Tromethamine 30 MG/ML VIAL IVP SCH (12:15)
[2020-07-24] MEDS: Furosemide 20 MG/2 ML VIAL SLOW IVP SCH (14:52)
[2020-07-24 15:44] VITALS: BP 61/45
[2020-07-24] MEDS ORDERED: Ventilator Sedation Protocol 1 EACH FS SCH (16:00)
[2020-07-24] MEDS ORDERED: DISCONTINUE PREVIOUS NARCOTIC PAIN MEDICATIONS AND BENZODIAZEPINES FS SCH (16:00)
[2020-07-24] MEDS ORDERED: Morphine 2 MG/ML VIAL SLOW IVP PRN (16:00)
[2020-07-24] MEDS ORDERED: Lorazepam 2 MG/ML VIAL SLOW IVP PRN ×2 (16:00→16:26)
[2020-07-24] MEDS ORDERED: Propofol BOLUS 1,000 MG/100 ML VIAL IV PRN (16:00)
[2020-07-24] MEDS ORDERED: Propofol 1,000 MG/100 ML VIAL IV PRN (16:00)
[2020-07-24] MEDS ORDERED: Norepinephrine 8 MG/0.9% NS 250 ML ONE (16:14)
[2020-07-24] MEDS: Fentanyl CADD 100 ML IV SCH (16:15)
[2020-07-24] MEDS: Fentanyl BOLUS 250 ML IVPB PRN ×3 (16:25→17:30)
[2020-07-24 16:42] LABS: Actual Bicarbonate (HCO3a) 28.1 mEq/L (22-28); Base Excess (BEa) 0.3 mEq/L (-2.0 to +3.0); Calcium, Ionized (arterial) 1.02 mmol/L (1.12-1.30); O2 Tension (PaO2), arterial 79.4 mmHg (> 70.0); Potassium - ABG Lab 3.72 mmol/L (3.70-5.30); pH, Arterial 7.27 (7.35-7.45)
[2020-07-24] MEDS ORDERED: Norepinephrine 16 MG in Dextrose 5% in Water 234 ML IVPB SCH (16:45)
[2020-07-24 16:47] LABS: CO2 Tension 63.1 mmHg (35.0-45.0); Puncture Site RBA
[2020-07-24 16:48] LABS: ALV-art Gradient 447.775 mmHg (0-20)
[2020-07-24 17:13] LABS: Heparin-Induced Ab (HITA) 0.057 OD (0.000-0.400)
[2020-07-24] MEDS ORDERED: Sodium Chloride 0.9% 500 ML IVPB SCH (20:00)
[2020-07-24] MEDS: Tamsulosin HCl 0.4 MG CAP PO SCH (20:51)
[2020-07-24] MEDS: Amitriptyline HCl 25 MG TAB PO SCH (20:53)
[2020-07-24] MEDS: Atorvastatin Calcium 40 MG TAB PO SCH (20:54)
[2020-07-24] MEDS: Ezetimibe 10 MG TAB PO SCH (21:00)
[2020-07-24] MEDS ORDERED: Transdermal Patch Removal TOP SCH (21:00)
[2020-07-24] MEDS: Cholecalciferol 1,000 UNITS (25 MCG) TAB PO SCH (21:07)
[2020-07-24] MEDS: Dextrose 50% Abboject 50 ML SYRINGE SLOW IVP PRN (23:20)
[2020-07-25] MEDS ORDERED: Norepinephrine 8 MG/0.9% NS 250 ML ONE ×3 (00:59→09:56)
[2020-07-25 03:55] LABS: Hemoglobin 9.4 g/dL (14.0-18.0); Mean Corpuscular HGB CONC 29.3 g/dL (32.0-36.0); Mean Corpuscular Hemoglobin 30.9 pg (27.0-31.0); Mean Platelet Volume 9.9 fL (7.4-10.4); Platelet Count 25 thou/uL (130-400); RBC Distribution Width 14.8 % (11.5-14.5); Red Blood Cell (RBC) Count 3.02 mill/uL (4.70-6.10); White Blood Cell (WBC) Count 2.3 thou/uL (4.8-10.8)
[2020-07-25 04:16] LABS: Anion Gap 14 mmol/L (10-20); BUN (Urea Nitrogen) 19 mg/dL (8.4-25.7); Calc. Creatinine Clearance 102 mL/min (70-130); Calcium 7.2 mg/dL (7.8-10.44); Carbon Dioxide 24 mmol/L (23-31); Chloride 105 mmol/L (98-107); Glucose 63 mg/dL (83-110); Sodium 139 mmol/L (136-145)
[2020-07-25 04:23] LABS: Band 1 % (5-11); Eosinophils 1 % (0-10); Lymphocytes 11 % (21-51); MDiff Complete? YES; Metamyelocyte 10 % (0-0); Monocytes 13 % (0-10); Neutrophil 63 % (42-75); Platelet Morphology Comment Appears Decreased; Reactive Lymphocytes 1 % (0-10)
[2020-07-25] MEDS ORDERED: Vasopressin 20 UNIT, Admixture Fee 1 EACH in Sodium Chloride 0.9% 50 ML IV SCH (04:30)
[2020-07-25] MEDS: Fentanyl CADD 100 ML IV SCH (04:32)
[2020-07-25] MEDS: Dextrose 50% Abboject 50 ML SYRINGE SLOW IVP PRN (05:22)
[2020-07-25] MEDS: Furosemide 20 MG/2 ML VIAL SLOW IVP SCH (05:53)
[2020-07-25] MEDS ORDERED: Fondaparinux Sodium 2.5 MG/0.5 ML SYRINGE SC SCH (06:00)
[2020-07-25 07:28] LABS: Actual Bicarbonate (HCO3a) 23.6 mEq/L (22-28); Base Excess (BEa) -4.2 mEq/L (-2.0 to +3.0); CO2 Tension 57.3 mmHg (35.0-45.0); Calcium, Ionized (arterial) 0.99 mmol/L (1.12-1.30); Carboxyhemoglobin (COHb) 1.1 gm% (0.0-3.0); Hemoglobin (Hb) 10.4 g/dL (14.0-18.0); Potassium - ABG Lab 4.13 mmol/L (3.70-5.30)
[2020-07-25 07:29] LABS: Puncture Site RRA; pH, Arterial 7.23 (7.35-7.45)
[2020-07-25 07:30] LABS: ALV-art Gradient 485.425 mmHg (0-20)
[2020-07-25] MEDS ORDERED: methylPREDNISolone Sod Succ 40 MG VIAL IVP SCH (07:45)
[2020-07-25] MEDS ORDERED: VANCOMYCIN 1.75 GM/350 ML BAG 1.75 GM in Premix Bag 1 BAG IVPB SCH (08:00)
[2020-07-25] MEDS ORDERED: METHYLPREDNISOLONE SOD SUCC IVPB SCH (08:00)
[2020-07-25] MEDS ORDERED: SODIUM CHLORIDE 0.9% IVPB SCH (08:00)
[2020-07-25] MEDS ORDERED: Dextrose 50% Abboject 50 ML SYRINGE ONE (08:21)
[2020-07-25 08:30] LABS: Digoxin 0.73 ng/mL (0.8-2.0)
[2020-07-25] MEDS ORDERED: Dextrose 5 % And 0.9 % NaCl 1,000 ML IV SCH (08:30)
[2020-07-25 08:46] VITALS: TEMP 102.3
[2020-07-25] MEDS ORDERED: Meropenem 2 GM in Sodium Chloride 0.9% 100 ML IVPB SCH (09:00)
[2020-07-25] MEDS ORDERED: methylPREDNISolone Sod Succ/PF 110 MG in Sodium Chloride 0.9% 250 ML 250 ML IVPB SCH (09:00)
[2020-07-25] MEDS ORDERED: Micafungin 100 MG in Sodium Chloride 0.9% 100 ML IVPB SCH (09:00)
[2020-07-25] MEDS ORDERED: Digoxin 0.5 MG/2 ML AMP SLOW IVP SCH (09:01)
[2020-07-25] MEDS ORDERED: Sodium Chloride 0.9% 1,000 ML IV SCH (09:02)
[2020-07-25] MEDS: Acetaminophen 325 MG TAB PO PRN (09:06)
[2020-07-25] MEDS: Zinc Sulfate 220 MG CAP PO SCH (09:07)
[2020-07-25] MEDS: Ascorbic Acid 500 mg Chewable Tablet PO SCH (09:07)
[2020-07-25] MEDS ORDERED: EPINEPHrine 4 MG in Dextrose 5% in Water 250 ML IVPB SCH (10:00)
[2020-07-25] MEDS: Benzonatate 100 MG CAP PO SCH (10:24)
[2020-07-25 10:26] VITALS: BMI 28.1
[2020-07-25] MEDS ORDERED: VANCOMYCIN 1.25 GM/250 ML BAG 1.25 GM in Premix Bag 1 BAG IVPB SCH (21:00)
== END 2020-07-25 11:24 | disposition expired | DRG 871 ==
LOC: 2SW 13:44 → IMCU/EMU 07-03 23:53 → CCU 07-24 15:38
PROVIDERS: ADMIT Family Medicine; ATTEND Hospitalist
PROC: XW033E5 Introduction of Remdesivir Anti-infective into Peripheral Vein, Percutaneous Approach, New Technology Group 5 (ICD-10-PCS; principal; 2020-06-18)
PROC: 8E0ZXY6 Isolation (ICD-10-PCS; 2020-06-18)
PROC: 5A0955A Assistance with Respiratory Ventilation, Greater than 96 Consecutive Hours, High Flow/Velocity Cannula (ICD-10-PCS; 2020-06-20)
PROC: 3E033XZ Introduction of Vasopressor into Peripheral Vein, Percutaneous Approach (ICD-10-PCS; 2020-07-24)
PROC: 5A1935Z Respiratory Ventilation, Less than 24 Consecutive Hours (ICD-10-PCS; 2020-07-24)
PROC: 5A09357 Assistance with Respiratory Ventilation, Less than 24 Consecutive Hours, Continuous Positive Airway Pressure (ICD-10-PCS; 2020-07-24)
PROC: 0BH17EZ Insertion of Endotracheal Airway into Trachea, Via Natural or Artificial Opening (ICD-10-PCS; 2020-07-24)
PROC: 06HY33Z Insertion of Infusion Device into Lower Vein, Percutaneous Approach (ICD-10-PCS; 2020-07-24)
DX: A41.89 Other specified sepsis (principal); U07.1 COVID-19; J96.01 Acute respiratory failure with hypoxia; J12.82 Pneumonia due to coronavirus disease 2019; I50.33 Acute on chronic diastolic (congestive) heart failure; I47.2 Ventricular tachycardia; B37.0 Candidal stomatitis; N39.0 Urinary tract infection, site not specified; N17.9 Acute kidney failure, unspecified; B00.2 Herpesviral gingivostomatitis and pharyngotonsillitis; I48.19 Other persistent atrial fibrillation; Z66 Do not resuscitate; R65.20 Severe sepsis without septic shock; K21.9 Gastro-esophageal reflux disease without esophagitis; E78.5 Hyperlipidemia, unspecified; N40.0 Benign prostatic hyperplasia without lower urinary tract symptoms; K57.90 Diverticulosis of intestine, part unspecified, without perforation or abscess without bleeding; M19.011 Primary osteoarthritis, right shoulder; I25.10 Atherosclerotic heart disease of native coronary artery without angina pectoris; I11.0 Hypertensive heart disease with heart failure; E66.9 Obesity, unspecified; E11.51 Type 2 diabetes mellitus with diabetic peripheral angiopathy without gangrene; G47.33 Obstructive sleep apnea (adult) (pediatric); K59.00 Constipation, unspecified; D53.9 Nutritional anemia, unspecified; R13.10 Dysphagia, unspecified; B00.1 Herpesviral vesicular dermatitis; R42 Dizziness and giddiness; R57.8 Other shock; R07.89 Other chest pain; G47.00 Insomnia, unspecified; D69.6 Thrombocytopenia, unspecified; T38.0X5A Adverse effect of glucocorticoids and synthetic analogues, initial encounter; R31.0 Gross hematuria; R79.89 Other specified abnormal findings of blood chemistry; Z96.652 Presence of left artificial knee joint; Z68.28 Body mass index [BMI] 28.0-28.9, adult; Z78.1 Physical restraint status; Z88.0 Allergy status to penicillin; Z88.8 Allergy status to other drugs, medicaments and biological substances; Z91.041 Radiographic dye allergy status; Z85.51 Personal history of malignant neoplasm of bladder; Z79.899 Other long term (current) drug therapy; Z79.82 Long term (current) use of aspirin; Z79.84 Long term (current) use of oral hypoglycemic drugs; Z82.49 Family history of ischemic heart disease and other diseases of the circulatory system; Z90.49 Acquired absence of other specified parts of digestive tract; Z95.828 Presence of other vascular implants and grafts; Z98.890 Other specified postprocedural states; F41.9 Anxiety disorder, unspecified
CPT/HCPCS: 36415; 36416; 36600; 71045; 71275; 74018; 74176; 80048; 80053; 80162; 81001; 82553; 82728; 82805; 83605; 83690; 83735; 83880; 84132; 84145; 84484; 85025; 85027; 85379; 85652; 86140; 86694; 86695; 86696; 87040; 87070; 87077; 87086; 87186; 87205; 87449; 87899; 93005; 93010; 93306; 93923; 94002; 94003; J0133; J0282; J0692; J1100; J1160; J1200; J1450; J1650; J1652; J1720; J1815; J1885; J1940; J1956; J2060; J2185; J2248; J2270; J2358; J2405; J2920; J2930; J3010; J3370; J3490; J7030; J7050; J7070; J7512; P9045; Q9967; S0028